=== PATIENT | female | born 1945 | race Caucasian/White ===

== ENCOUNTER 2019-07-01 08:40 | Observation (INO) | payer MEDICARE, OTHER ==
[~2019-07-01] VITALS: Ht 172 cm; Wt 72.5 kg
[2019-07-01 09:00] LABS: HEMATOCRIT 41 % (35-52); MEAN CORPUSCULAR HEMOGLOBIN 30 PG (25-34); MEAN CORPUSCULAR HGB CONC 32 G/DL (32-36); MEAN CORPUSCULAR VOLUME 95 FL (80-99); MEAN PLATELET VOLUME 13.2 FL (7.4-10.4); PLATELET COUNT 197 10^3/uL (130-400); RED CELL DISTRIBUTION WIDTH 15.3 % (10.0-14.5); WHITE BLOOD COUNT 27.9 10^3/uL (4.3-11.0)
[2019-07-01] MEDS ORDERED: fentaNYL INJECTION 100 MCG/2 ML AMP IVP ONE (09:00)
--- OUTSIDE RECORDS SUMMARY | 2019-07-01 09:05 | XMS REPORT | Continuity of Care Document ---
Author Organization Unknown Address Unknown Phone Unavailable Allergies Active Description Code Type Severity Reaction Onset Reported/Identified Relationship to Patient Clinical Status Yes Sulfa (Sulfonamide Antibiotics) [id number] Drug Allergy Mild HIVES, SWELLING 06/25/2006 Medications There is no data. Problems There is no data. Procedures There is no data. Results There is no data. Encounters ACCT No. Visit Date/Time Discharge Status Pt. Type Provider Facility Loc./Unit Complaint [id number] 06/26/2019 08:15:00 020 23:59:59 CLS Outpatient JOSE REBOLLEDO MD [facility] ONC [id number] 07/03/2019 12:30:00 P EN Preadmit JOSE REBOLLEDO MD [facility] RAD LUNG CANCER [id number] 07/01/2019 08:46:[address] Emergency HUMBERTO GARCIA MD [facility] ER ABD PAIN
--- NOTE | 2019-07-01 09:21 | ED Abdominal Pain ---
General Chief Complaint: General Problems/Pain Stated Complaint: ABD PAIN Nursing Triage Note: PT TO ROOM 5 PER W/C PT CO OF VERY LOWER L ABD/HIP PAIN. PT RATES 01/23. PT HAS NEWLY DX CA STATES ALL OVER. NEW PAIN STARTED SUNDAY. PT STATES TAKES HYDROCODONE FOR PAIN Sepsis Screen: No Definite Risk Source of Information: Patient Exam Limitations: No Limitations History of Present Illness Date Seen by Provider: Jul 01, 2019 Time Seen by Provider: 08:57 Initial Comments Patient presents to ER by private conveyance with her daughter and chief wyatt reyes that she is having for 5 days progressively worsening left hip pain. She said they went to [place] yesterday and she had use. Patient is not able to walk on it. 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 She does not report yet. She does not have a primary source yet. She's had her right hip replaced the fracture in the past. Her pain is in her left lower quadrant abdomen/hip. She has had partial colectomy for diverticulitis historically. Patient wishes to be allow natural , DO NOT RESUSCITATE. Allergies and Home Medications Allergies Coded Allergies: Sulfa (Sulfonamide Antibiotics) (Unverified Allergy, Mild, HIVES, SWELLING AND ITCHING, 06/25/06) Patient Home Medication List Home Medication List Reviewed: Yes Review of Systems Review of Systems Constitutional: No chills EENTM: No Blurred Vision, No Double Vision Respiratory: Denies Cough, Denies Shortness of Air Cardiovascular: Denies Lightheadedness Gastrointestinal: Denies Constipated, Denies Diarrhea, Denies Nausea, Denies Vomiting Genitourinary: Denies Burning, Denies Discharge, Denies Drainage Musculoskeletal: see HPI; No back pain; joint pain All Other Systems Reviewed Negative Unless Noted: Yes Past Epvwjjr-Ouxuku-Txgmyj Hx Patient Social History Alcohol Use: Denies Use Recreational Drug Use: No Smoking Status: Current Everyday Smoker Type Used: Cigarettes Recent Foreign Travel: No Contact w/Someone Who Travel: No Recent Infectious Disease Expo: No Recent Hopitalizations: No Physical Abuse: No Sexual Abuse: No Seasonal Allergies Seasonal Allergies: No Past Medical History Surgeries: Yes (colon resection) Abdominal, Appendectomy, Hysterectomy, Orthopedic COPD Cardiac: No Neurological: No Genitourinary: No Gastrointestinal: Yes Diverticulosis Musculoskeletal: Yes Arthritis, Chronic Back Pain Endocrine: Yes Diabetes, Non-Insulin dep Cancer: Yes (STATES ALL OVER) Integumentary: No Blood Disorders: No Physical Exam Vital Signs Vital Signs - First Documented 07/01/19 08:40 Temp 36.7 Pulse 71 Resp 18 B/P (MAP) 164/101 (122) Pulse Ox 96 Capillary Refill : Less Than 3 Seconds Height/Weight/BMI Height: '" Weight: lbs. oz. kg; 24.00 BMI Method: General Appearance: WD/WN, moderate distress HEENT: PERRL/EOMI, pharynx normal Neck: full range of motion, supple, normal inspection Respiratory: lungs clear, normal breath sounds, no respiratory distress, no accessory muscle use Cardiovascular: normal peripheral pulses, regular rate, rhythm Peripheral Pulses: 2+ Radial Pulses (R), 2+ Radial Pulses (L) Gastrointestinal: normal bowel sounds, non tender, soft, no organomegaly Extremities: normal inspection, normal capillary refill, other (tenderness to touch over the left anterior hip inguinal line. No deformity. Mildly tender over left lateral hip.) Neurologic/Psychiatric: alert, normal mood/affect, oriented x 3 Skin: normal color, warm/dry Progress/Results/Core Measures Results/Orders Lab Results Laboratory Tests Test 07/01/19 08:52 07/01/19 09:44 Range/Units White Blood Count 27.9 H 4.3-11.0 10^3/uL Red Blood Count 4.34 L 4.35-5.85 10^6/uL Hemoglobin 13.0 11.5-16.0 G/DL Hematocrit 41 35-52 % Mean Corpuscular Volume 95 80-99 FL Mean Corpuscular Hemoglobin 30 25-34 PG Mean Corpuscular Hemoglobin Concent 32 32-36 G/DL Red Cell Distribution Width 15.3 H 10.0-14.5 % Platelet Count 197 130-400 10^3/uL Mean Platelet Volume 13.2 H 7.4-10.4 FL Neutrophils (%) (Auto) 42-75 % Lymphocytes (%) (Auto) 12-44 % Monocytes (%) (Auto) 0-12 % Eosinophils (%) (Auto) 0-10 % Basophils (%) (Auto) 0-10 % Neutrophils # (Auto) 1.8-7.8 X 10^3 Lymphocytes # (Auto) 1.0-4.0 X 10^3 Monocytes # (Auto) 0.0-1.0 X 10^3 Eosinophils # (Auto) 0.0-0.3 10^3/uL Basophils # (Auto) 0.0-0.1 10^3/uL Neutrophils % (Manual) 65 % Lymphocytes % (Manual) 7 % Monocytes % (Manual) 7 % Eosinophils % (Manual) 21 % Polychromasia SLIGHT Anisocytosis SLIGHT Macrocytosis SLIGHT Sodium Level 142 135-145 MMOL/L Potassium Level 3.2 L 3.6-5.0 MMOL/L Chloride Level 105 98-107 MMOL/L Carbon Dioxide Level 26 21-32 MMOL/L Anion Gap 11 5-14 MMOL/L Blood Urea Nitrogen 7 7-18 MG/DL Creatinine 0.73 0.60-1.30 MG/DL Estimat Glomerular Filtration Rate > 60 BUN/Creatinine Ratio 10 Glucose Level 106 H 70-105 MG/DL Calcium Level 8.2 L 8.5-10.1 MG/DL Corrected Calcium 8.8 8.5-10.1 MG/DL Total Bilirubin 0.4 0.1-1.0 MG/DL Aspartate Amino Transf (AST/SGOT) 14 5-34 U/L Alanine Aminotransferase (ALT/SGPT) 8 0-55 U/L Alkaline Phosphatase 75 40-136 U/L C-Reactive Protein High Sensitivity 4.86 H 0.00-0.50 MG/DL Total Protein 5.9 L 6.4-8.2 GM/DL Albumin 3.3 3.2-4.5 GM/DL Lipase < 4 L 8-78 U/L Urine Color YELLOW Urine Clarity CLEAR Urine pH 6.0 5-9 Urine Specific [place] 1.015 L 1.016-1.022 Urine Protein NEGATIVE NEGATIVE Urine Glucose (UA) NEGATIVE NEGATIVE Urine Ketones NEGATIVE NEGATIVE Urine Nitrite NEGATIVE NEGATIVE Urine Bilirubin NEGATIVE NEGATIVE Urine Urobilinogen 1.0 < = 1.0 MG/DL Urine Leukocyte Esterase NEGATIVE NEGATIVE Urine RBC (Auto) TRACE-I NEGATIVE Urine RBC RARE /HPF Urine WBC 0-2 /HPF Urine Squamous Epithelial Cells 0-2 /HPF Urine Crystals NONE /LPF Urine Bacteria TRACE /HPF Urine Casts NONE /LPF Urine Mucus NEGATIVE /LPF Urine Culture Indicated NO My Orders Orders - HUMBERTO GARCIA Ua Culture If Indicated (07/01/19 08:51) Ed Iv/Invasive Line Start (07/01/19 08:51) Cbc With Automated Diff (07/01/19 08:51) Comprehensive Metabolic Panel (07/01/19 08:51) Hs C Reactive Protein (07/01/19 08:51) Lipase (07/01/19 08:51) Fentanyl Injection (Sublimaze Injection (07/01/19 09:00) Manual Differential (07/01/19 08:52) Chest 1 View, Ap/Pa Only (07/01/19 09:11) Pelvis With Left Hip 2-3 Views (07/01/19 09:11) Catheter(Urinary) Insert & Ass 03,15 (07/01/19 09:31) Ct Abdomen/Pelvis W (07/01/19 09:42) Ed Iv/Invasive Line Start (07/01/19 09:45) Ns Iv 1000 Ml (Sodium Chloride 0.9%) (07/01/19 09:45) Iohexol Injection (Omnipaque 350 Mg/Ml 1 (07/01/19 10:30) Received Contrast (Hold Metformin- Contr (07/01/19 10:30) Ns (Ivpb) (Sodium Chloride 0.9% Ivpb Bag (07/01/19 10:30) Hydrocodone/Apap 5/325 Tablet (Lortab 5 (07/01/19 11:15) Medications Given in ED Current Medications Medications Dose Ordered Sig/Cosme Route Start Time Stop Time Status Last Admin Dose Admin Acetaminophen/ Hydrocodone Bitart 2 tab ONCE ONCE PO 07/01/19 11:15 07/01/19 11:16 DC 07/01/19 11:24 2 TAB Fentanyl Citrate 75 mcg ONCE ONCE IVP 07/01/19 09:00 07/01/19 09:01 DC 07/01/19 08:59 75 MCG Iohexol 85 ml ONCE ONCE IV 07/01/19 10:30 07/01/19 10:31 DC 07/01/19 10:19 85 ML Sodium Chloride 100 ml ONCE ONCE IV 07/01/19 10:30 07/01/19 10:31 DC 07/01/19 10:19 80 ML Vital Signs/I&O 07/01/19 08:40 Temp 36.7 Pulse 71 Resp 18 B/P (MAP) 164/101 (122) Pulse Ox 96 Blood Pressure Mean: 122 Progress Progress Note #1: Time: 09:45 Progress Note Discussed our concerns with the radiologist about a potential fracture in the left hip. Radiology felt that the shadows likely represented an overlapping osteophytes more likely than hip fracture. Because the patient's having pain in that area however we are going to obtain a CT of the abdomen pelvis with IV contrast to look for alternative diagnoses and get a closer look at the hip. Progress Note #2: Time: 11:04 Progress Note Elevated white count and mass in the left lower lung but the patient denies having any more effective cough than usual as a smoker. She's had no fevers or chills. She has aseptic vital signs now. Urine and the rest the labs are okay. Early postobstructive pneumonia? She says her pain started to come back in the fentanyl was wearing off so were going to give her Welcome 5 mg 2. She agrees to staying in the hospital for some physical therapy and pain management. Diagnostic Imaging Diagonstic Imaging: Xray Plain Films/CT/US/NM/MRI: chest Comments [facility]. [place], [place] NAME: VALENTIN DUNLAP [facility] REC#: [id number] PT STATUS: REG ER : 1945 PHYSICIAN: HUMBERTO GARCIA MD ADMIT DATE: 07/01/19/ER Signed Date of Exam:07/01/19 CHEST 1 VIEW, AP/PA ONLY INDICATION: Left hip fracture. TECHNIQUE: Frontal chest obtained at 09:16 a.m. FINDINGS: Heart is borderline enlarged. There is left perihilar and basilar infiltrate. We do not have previous study for comparison. The right lung is clear. There is no pneumothorax. IMPRESSION: There is cardiomegaly. There is left perihilar and basilar infiltrate. Follow-up is recommended. Dictated by: Dictated on workstation # [id number] Dict: 07/01/19925 Trans: 07/01/19931 AS6 [id number] Interpreted by: FILOMENA LAU MD Electronically signed by: FILOMENA LAU MD 07/01/19931 Reviewed: Reviewed by Me Diagonstic Imaging: Xray Plain Films/CT/US/NM/MRI: pelvis, hip (l) Comments NAME: VALENTIN DUNLAP [facility] REC#: [id number] PT STATUS: REG ER : 1945 PHYSICIAN: HUMBERTO GARCIA MD ADMIT DATE: 07/01/19/ER Draft Date of Exam:07/01/19 PELVIS WITH LEFT HIP 2-3 VIEWS HISTORY: Left hip pain. COMPARISON: None. TECHNIQUE: Frontal view the pelvis. Frontal and lateral views of the left hip. FINDINGS: There are severe degenerative changes in the left hip with large acetabular marginal osteophytes and collar osteophytes of the femoral head. There is a right hip arthroplasty with no hardware complication seen. Fusion hardware is noted in the lumbar spine. Surgical clips are noted in the pelvis. No acute fracture is seen. IMPRESSION: Severe degenerative changes in the left hip joint. 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 He cannot see a definite fracture of the left hip however there is some bone edema could indicate small occult fracture in for still concerned about it and we should consider getting an MRI of the left hip. No other acute findings in the abdomen or pelvis. Reviewed: Reviewed by Me, Discussed w/Radiologist ([place]) Departure Communication (Admissions) Time/Spoke to Admitting Phy: 11:06 He agrees to observe the patient for intractable pain and get the MRI of her left hip today. He would like orthopedics to consult and reviewed imaging and give their opinion about possible occult fracture or not. No antibiotics at this time. Blood cultures. Time/Spoke to Consulting Phy: 11:15 Discussed the case with Drs. Mota and he agrees to consult on the case and review imaging. Impression Primary Impression: Left hip pain Additional Impressions: Intractable pain Leukocytosis Qualified Codes: D72.829 - Elevated white blood cell count, unspecified Disposition: ADMITTED INPATIENT Condition: Stable Admissions Decision to Admit Reason: Admit from ER (General) Decision to Admit/Date: Jul 01, 2019 Time/Decision to Admit Time: 11:00 Departure-Patient Inst. Referrals: SAGE VICTORIA MD (PCP/Family) Primary Care Physician Copy Copies To 1: SAGE VICTORIA MD; JOSE REBOLLEDO MD, TITUS J Jul 01, 2019 09:21
[2019-07-01 09:29] LABS: ALANINE AMINOTRANSFERASE 8 U/L (0-55); ALBUMIN 3.3 GM/DL (3.2-4.5); ALKALINE PHOSPHATASE 75 U/L (40-136); BILIRUBIN,TOTAL 0.4 MG/DL (0.1-1.0); BUN/CREATININE RATIO 10; CALCIUM 8.2 MG/DL (8.5-10.1); CARBON DIOXIDE 26 MMOL/L (21-32); CHLORIDE 105 MMOL/L (98-107); CREATININE SERUM 0.73 MG/DL (0.60-1.30); GFR ESTIMATED > 60; GLUCOSE 106 MG/DL (70-105); LIPASE < 4 U/L (8-78); POTASSIUM 3.2 MMOL/L (3.6-5.0); SODIUM 142 MMOL/L (135-145); TOTAL PROTEIN 5.9 GM/DL (6.4-8.2)
--- NOTE | 2019-07-01 09:31 | Diagnostic Imaging Report ---
INDICATION: Left hip fracture. TECHNIQUE: Frontal chest obtained at 09:16 a.m. FINDINGS: Heart is borderline enlarged. There is left perihilar and basilar infiltrate. We do not have previous study for comparison. The right lung is clear. There is no pneumothorax. IMPRESSION: There is cardiomegaly. There is left perihilar and basilar infiltrate. Follow-up is recommended. Dictated by: Dictated on workstation # [id number]
--- NOTE | 2019-07-01 09:32 | Diagnostic Imaging Report ---
HISTORY: Left hip pain. COMPARISON: None. TECHNIQUE: Frontal view the pelvis. Frontal and lateral views of the left hip. FINDINGS: There are severe degenerative changes in the left hip with large acetabular marginal osteophytes and collar osteophytes of the femoral head. There is a right hip arthroplasty with no hardware complication seen. Fusion hardware is noted in the lumbar spine. Surgical clips are noted in the pelvis. No acute fracture is seen. IMPRESSION: Severe degenerative changes in the left hip joint. Dictated by: Dictated on workstation # [id number]
[2019-07-01] MEDS ORDERED: NS IV 1000 ML 1,000 ML IV SCH (09:45)
[2019-07-01 09:50] LABS: BILIRUBIN,URINE NEGATIVE (NEGATIVE); CLARITY,URINE CLEAR; COLOR,URINE YELLOW; GLUCOSE, URINE (UA) NEGATIVE (NEGATIVE); KETONES,URINE NEGATIVE (NEGATIVE); LEUKOCYTE ESTERASE ,URINE NEGATIVE (NEGATIVE); NITRITE,URINE NEGATIVE (NEGATIVE); PROTEIN,URINE NEGATIVE (NEGATIVE)
[2019-07-01 10:11] LABS: BACTERIA,URINE TRACE /HPF; RBC,URINE RARE /HPF; SQUAMOUS EPITHELIAL CELL,UR 0-2 /HPF; WBC,URINE 0-2 /HPF
[2019-07-01 10:16] LABS: EOSINOPHILS % (MANUAL) 21 %; LYMPHOCYTES % (MANUAL) 7 %; MONOCYTES % (MANUAL) 7 %; NEUTROPHILS % (MANUAL) 65 %
[2019-07-01 10:18] LABS: ANISOCYTOSIS SLIGHT; POLYCHROMASIA SLIGHT
[2019-07-01] MEDS ORDERED: NS 100 ML (IVPB) BAG IV ONE (10:30)
[2019-07-01] MEDS ORDERED: HOLD METFORMIN - RECEIVED CONTRAST 20 ML VIAL IV SCH (10:30)
[2019-07-01] MEDS ORDERED: IOHEXOL 350 MG/ML 100 ML (OMNIPAQUE 350) VIAL IV ONE (10:30)
--- NOTE | 2019-07-01 11:00 | Diagnostic Imaging Report ---
PROCEDURE: CT abdomen and pelvis with contrast. TECHNIQUE: Multiple contiguous axial images were obtained through the abdomen and pelvis after administration of intravenous contrast. Auto Exposure Controls were utilized during the CT exam to meet ALARA standards for radiation dose reduction. INDICATION: Lower abdomen and left hip pain. COMPARISON: There are no previous CT abdomen/pelvis examinations available for comparison. By history, the patient has a recent diagnosis of carcinoma. FINDINGS: The images of the liver show multiple low density areas throughout the liver. The largest of these is in the dome of the right lobe of the liver and measures 3.9 cm. These low density lesion should be considered neoplastic until proven otherwise. There is also a sizable loculated effusion in the left lung base with a 3.8 x 5.0 cm mass-like density in the left lower lobe. This could be neoplastic as well. Unless there are previous exams available for comparison, then a CT of the chest would be recommended for further study. The right lung is generally clear. The heart size is within normal limits. The spleen, pancreas, adrenals, kidneys, gallbladder, aorta, and inferior vena cava show no sign of an acute abnormality. There is no pelvic mass or free fluid collection evident. The urinary bladder is decompressed by a Nicole catheter. By history, the appendix, uterus, and a portion of the small bowel are surgically absent. There has also been laminectomy and fusion extending from L2 through S1. Bilateral pedicle screws are also seen at each of these levels except for L5. There is a grade 2 spondylolisthesis of L5 with respect to S1 with near complete obliteration of the disc space. There is also a total hip prosthesis in place on the right. The plain film examination of the pelvis performed prior to the study noted severe degenerative disease involving the left hip. Those findings are again evident. There is no clear evidence for a fracture in this area. There is no sign of a destructive lesion to indicate metastatic disease either. However, if further study is desired, then MRI would be recommended. IMPRESSION: 1. There are multiple low density lesions within the liver. These should be considered neoplastic until proven otherwise. The mass-like density in the left lung base is also worrisome for neoplasm. Recommendations as above. 2. There is no acute abnormality in the abdomen or pelvis noted otherwise. 3. There is severe degenerative disease involving the left hip joint but there is no evidence for a fracture or for an acute bony abnormality. Recommendations as above. 4. These results were discussed with Dr. Rajeev Avalos. Dictated by: Dictated on workstation # [id number]
[2019-07-01] MEDS ORDERED: HYDROcodone/APAP 5 MG/325 MG (LORTAB) TAB PO ONE (11:15)
--- NOTE | 2019-07-01 11:45 | NUR ---
LAB HERE TO DRAW BLOOD CULTURES
--- NOTE | 2019-07-01 12:20 | NUR ---
VALENTIN DUNLAP admitted to room 411-1, with an admitting diagnosis of INTRACTABLE PAIN LEFT HIP, AND LEUKOCYTOSIS, on 07/01/19 from ED via [facility], accompanied by ED STAFF. VALENTIN DUNLAP introduced to surroundings, call light, bed controls, phone, TV, temperature control, lights, meal times, smoking policy, visitor policy, side rail policy, bathrooms and showers. Patient Rights given to patient in the handbook. VALENTIN DUNLAP verbalizes understanding that [facility] is not responsible for the loss or damage to any personal effects or valuables that are kept in the patients possession during their hospitalization. The following Patient Care Plans were discussed with the PATIENT: Discharge Planning, POSSIBLE FRACTURE, IMPAIRED MOBILITY and KNOWLEDGE DEFICIT. VALENTIN DUNLAP verbalizes understanding of Interdisciplinary Patient Education. Patient and/or family were informed about the Rapid Response Team and its purpose.
[2019-07-01 12:34] VITALS: BP 122/66
[2019-07-01] MEDS ORDERED: fentaNYL INJECTION 100 MCG/2 ML AMP IV PRN (12:45)
[2019-07-01] MEDS ORDERED: ONDANSETRON 4 MG/2 ML (SDV) Z0FRAN IV PRN (12:45)
[2019-07-01] MEDS ORDERED: CATHETER FLUSH 10 ML SYR IV PRN (12:45)
[2019-07-01] MEDS ORDERED: HYDROcodone/APAP 5 MG/325 MG (LORTAB) TAB PO PRN (12:45)
--- OUTSIDE RECORDS SUMMARY | 2019-07-01 12:57 | XMS REPORT | Continuity of Care Document ---
Author Organization Unknown Address Unknown Phone Unavailable Allergies Active Description Code Type Severity Reaction Onset Reported/Identified Relationship to Patient Clinical Status Yes Sulfa (Sulfonamide Antibiotics) [id number] 0491 Drug Allergy Mild HIVES, SWELLING 06/25/2006 Medications There is no data. Problems There is no data. Procedures There is no data. Results There is no data. Encounters ACCT No. Visit Date/Time Discharge Status Pt. Type Provider Facility Loc./Unit Complaint [id number] 06/26/2019 08:15:00 020 23:59:59 CLS Outpatient JOSE REBOLLEDO MD [facility] ONC [id number] 07/03/2019 12:30:00 P EN Preadmit JOSE REBOLLEDO MD [facility] RAD LUNG CANCER [id number] 07/01/2019 11:20:[address] Inpatient HILTON QUEVEDO, MANNY Ramos [facility] 4TH INTRACTABLE PAIN L HIP,LEUKO CYTOSIS
[2019-07-01] MEDS: POTASSIUM CHLORIDE INJ 40 MEQ in 1/2 NS IV SOLUTION 1,000 ML IV SCH (12:59)
--- NOTE | 2019-07-01 13:41 | Occupational Therapy Eval ---
OT Evaluation-General/PLF Medical Diagnosis Admission Date Jul 01, 2019 at 11:20 Medical Diagnosis: L hip pain Onset Date: Jun 30, 2019 Therapy Diagnosis Therapy Diagnosis: Decreased ADL status Precautions Precautions/Isolations: Fall Prevention, Standard Precautions Referral Physician: Noemy Khan MD Referral Reason: Activity Tolerance, Self Care, Evaluation/Treatment, Strengthening/ROM Medical History Pertinent Medical History: Arthritis, COPD, DM, Diverticulitis Additional Medical History leukocytosis, Ca (recent dx- metastasis to bone), R YANIV, partial colectomy (diverticulitis), everyday smoker, COPD, arthritis, NID DM Current History Pt states severe L hip pain yesterday. Pt states persisted through night and desired to go in to work this morning, however stated went to ER for L hip pain Reviewed History: Yes Social History Home: Single Level Current Living Status: Alone Entry Into Home: Ramp Steps Into Home: 0 ADL-Prior Level of Function SCALE: Activities may be completed with or without assistive devices. 2-Lwdiyxowqz-krgbtdt completes the activity by him/herself with no assistance from a helper. 5-Set-up or Clean-up Assistance-helper sets up or cleans up; patient completes activity. [place] assists only prior to or following the activity. 4-Supervision or Touching Assistance-helper provides verbal cues and/or touching/steadying and/or contact guard assistance as patient completes activity. Assistance may be provided throughout the activity or intermittently. 3-Partial/Moderate Assistance-helper does LESS THAN HALF the effort. [place] lifts, holds or supports trunk or limbs, but provides less than half the effort. 2-Substantial/Maximal Assistance-helper does MORE THAN HALF the effort. [place] lifts or holds trunk or limbs and provides more than half the effort. 4-Xdnvpbuya-kdniua does ALL the effort. Patient does none of the effort to complete the activity. Or, the assistance of 2 or more helpers is required for the patient to complete the activity. If activity was not attempted, code reason: 7-Patient Refused. 9-Not Applicable-not attempted and the patient did not perform the activity before the current illness, exacerbation or injury. 10-Not Attempted due to Environmental Limitations-(lack of equipment, weather restraints, etc.). 88-Not Attempted due to Medical Conditions or Safety Concerns. ADL PLOF Comments Pt states IND without use of AE. 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 Pt eating, states minimal appetite/ eats small amounts due to nausea. Pt states "had nausea," but is no longer present. Pt agreeable to OT eval/ treat, stating no current pain but "sharp/ shooting" with movement. Mental Status/Objective Patient Orientation: Person, Place, Situation, Normal For Age Attachments: IV Current Glasses/Contacts: Yes Hearing Aids: No Upper Extremity ROM WFL BUE Upper Extremity Coordination WFL BUE Upper Extremity Sensation WFL BUE Pt states tingling/ numbness BLE, denies DM dx. Upper Extremity Strength WFL BUE ADL-Treatment Eating (QC): 6 Upper Body Dressing (QC): 6 (Pt states dressed self this morning) Lower Body Dressing (QC): 6 (Pt states dressed self this morning) On/Off Footwear (QC): 6 (Pt states dressed self this morning) Other Treatments Pt provides hx: states recent Ca dx, states pain began yesterday in L hip, now only hurts (sharp/ shooting) when in stance. Pt agreeable to OOB activity. Pt completes bed mob with SBA, MMT/ ROM WFL EOB. Pt leans down to don/ doff socks (replicates, does not complete and states she completed dressing tasks with IND this morning). Pt agreeable to sit to stand, utilizes 2WW to sit to stand, states minimal pain, ambulates around bed with CGA, states 8/10 pain and returns to bed with increased time. Pt educated on OT role, pt educated on no need for OT as she is at PLOF though increased time/ pain. Pt agrees. Pt educated on PT eval later today as well. Pt agrees. Pt in bed, call light in reach, all needs met, food placed again in front of pt. Education OT Patient Education: Correct positioning, Safety issues Teaching Recipient: Patient Teaching Methods: Demonstration, Discussion Response to Teaching: Verbalize Understanding, Return Demonstration OT Light Rail Signal Technician Goals Intermediate Goals 1=Demonstrate adherence to instructed precautions during ADL tasks. 2=Patient will verbalize/demonstrate understanding of assistive devices/modifications for ADL. 3=Patient will improve strength/tolerance for activity to enable patient to perform ADL's. OT Education/Plan Problem List/Assessment Assessment: Decreased Activ Tolerance, Impaired Funct Balance Discharge Recommendations Plan/Recommendations: Continue POC Therapy Discharge Recommendati: Intermittent Supervision, Home & Family Treatment Plan/Plan of Care Treatment,Training & Education: Yes No skilled OT tx needed. Plan of Care: OTHER (eval only) Treatment Duration: Jul 01, 2019 Frequency: 1 time per week (eval only) Agreement: Yes Time/GCodes Start Time: 13:10 Stop Time: 13:30 Total Time Billed (hr/min): 20 Billed Treatment Time 1, EVL (20) KIMANI MERCADO OTR Jul 01, 2019 13:41
--- NOTE | 2019-07-01 13:44 | NUR ---
MESSAGE SENT TO DR CANELA -- DVT SCORE IS 7
[2019-07-01] MEDS: fentaNYL INJECTION 100 MCG/2 ML AMP IV PRN ×2 (13:52→20:15)
[2019-07-01 14:45] VITALS: BP 123/69
[2019-07-01] MEDS: HYDROcodone/APAP 10 MG/325 MG (LORTAB) TAB PO PRN ×2 (14:59→22:13)
--- NOTE | 2019-07-01 15:04 | Diagnostic Imaging Report ---
PROCEDURE: MRI left joint lower extremity without contrast. TECHNIQUE: Multiplanar, multisequence non contrast-enhanced MRI of the left lower extremity was accomplished. INDICATION: Severe left hip pain. COMPARISON: CT abdomen and pelvis from earlier same day. FINDINGS: There is an abnormal intramedullary lesion within the posterior aspect of the left femoral head which is T2 hyperintense and T1 hypointense, likely represents a metastatic lesion. There is a similar metastatic lesion within the right iliac wing. Right total hip arthroplasty has been performed which results in signal void and architectural distortion artifact about the right hip. Severe degenerative arthritis in the left hip is present with areas of full-thickness articular cartilage loss as well as extensive marginal osteophyte formation. A small hip effusion is likely degenerative in nature. Degenerative tearing of the acetabular labrum is also likely present. No large para-labral cyst. No free pelvic fluid. No left inguinal lymphadenopathy. IMPRESSION: 1. Abnormal intraosseous lesions involving the left femoral head and right iliac wing are highly suspicious for metastatic disease. No pathologic fracture. 2. Severe/end-stage degenerative arthritis of the left hip is present. 3. Left hip effusion is likely degenerative in nature. Dictated by: Dictated on workstation # [id number]
[2019-07-01] MEDS ORDERED: BETA15CR14 TOP (15:22)
[2019-07-01] MEDS ORDERED: GABA-490 PO (15:22)
[2019-07-01] MEDS ORDERED: CETI10TA21 PO (15:22)
[2019-07-01] MEDS ORDERED: IBUP-30 PO (15:22)
[2019-07-01] MEDS ORDERED: CALC10009 PO (15:22)
[2019-07-01] MEDS ORDERED: HYDR-4226 PO (15:22)
--- NOTE | 2019-07-01 15:23 | NUR ---
SPOKE WITH PT, WENT THRU EXT MED HISTORY AND CALLED [facility] TO COMPLETE THE MED REC ALL MEDICATIONS THAT THE PT SAYS SHE TAKES ARE LISTED ON THE EXT MED HISTORY OTC MEDS: ZYRTEWilliams EDMONDS
--- NOTE | 2019-07-01 15:40 | Physical Therapy Evaluation ---
PT Evaluation-General Medical Diagnosis Admission Date Jul 01, 2019 at 11:20 Medical Diagnosis: L hip pain Onset Date: Jun 30, 2019 Therapy Diagnosis Therapy Diagnosis: Impaired mobility Precautions Precautions/Isolations: Fall Prevention, Standard Precautions Weight Bear Status Right Lower Extremity: Right Weight Bearing/Tolerated Left Lower Extremity: Left Weight Bearing/Tolerated Referral Physician: Noemy Khan MD Reason for Referral: Evaluation/Treatment Medical History Pertinent Medical History: Arthritis, COPD, DM, Diverticulitis Additional Medical History Cancer, COPD, RHA, colectomy, diverticulitis Current History ER by family with 2nd pain to LL quadrant of abdomen Reviewed History: Yes Social History Home: Single Level Current Living Status: Alone Entry Into Home: Ramp PT Steps Into Home: 0 Prior Prior Level of Function SCALE: Activities may be completed with or without assistive devices. 8-Rkjogtcfgg-ticygrk completes the activity by him/herself with no assistance from a helper. 5-Set-up or Clean-up Assistance-helper sets up or cleans up; patient completes activity. [place] assists only prior to or following the activity. 4-Supervision or Touching Assistance-helper provides verbal cues and/or touching/steadying and/or contact guard assistance as patient completes activity. Assistance may be provided throughout the activity or intermittently. 3-Partial/Moderate Assistance-helper does LESS THAN HALF the effort. [place] lifts, holds or supports trunk or limbs, but provides less than half the effort. 2-Substantial/Maximal Assistance-helper does MORE THAN HALF the effort. [place] lifts or holds trunk or limbs and provides more than half the effort. 5-Qmlyfaiti-cetmzf does ALL the effort. Patient does none of the effort to complete the activity. Or, the assistance of 2 or more helpers is required for the patient to complete the activity. If activity was not attempted, code reason: 7-Patient Refused. 9-Not Applicable-not attempted and the patient did not perform the activity before the current illness, exacerbation or injury. 10-Not Attempted due to Environmental Limitations-(lack of equipment, weather restraints, etc.). 88-Not Attempted due to Medical Conditions or Safety Concerns. Bed Mobility: 6 Transfers (B,C,W/C): 6 Gait: 6 Stairs: 6 Indoor Mobility (Ambulation): Independent Stairs: Independent none PT Evaluation-Current Subjective Patient reports with pain 8/10 at L hip. Patient wished to be independent with all activities Pain Numeric Pain Scale: 8 Location: Left Location Body Site: Hip Pain Description: Acute Pt/Family Goals return home Objective Patient Orientation: Person, Place, Eyes Open Attachments: Nicole Catheter, IV ROM/Strength ROM Upper Extremities WNL ROM Lower Extremities right LE WNL/left LE limited due to pain with hip flexion Strength Upper Extremities WNL Strength Lower Extremities right LE WNL/left LE limited due to pain Integumentary/Posture Bowel Incontinence: No Bladder Incontinence: Nicole Cath Posture WFL Neuromuscular (Tone, Coordination, Reflexes) grossly intact Sensory Vision: Functional Hearing: Functional Hand Dominance: Right Sensation Right Upper Extremit: Intact Sensation Left Upper Extremity: Intact Sensation Right Lower Extremit: Intact Sensation Left Lower Extremity: Intact Transfers Roll Left to Right (QC): 5 Sit to Lying (QC): 4 (SBA) Lying to Sitting/Side of Bed(Q: 4 (SBA) Sit to Stand (QC): 4 (SBA) Chair/Svl-yz-Nyyss Xfer(QC): 88 Toilet Transfer: 88 Car Transfer (QC): 88 could not be completed due to pain. PT waiting for full imaging results of L hip. Gait Does the Patient Walk?: No and Walking Goal IS indicated Mode of Locomotion: Walk Anticipated Mode of Locomotion: Walk Walk 10 feet (QC): 88 Walk 50 ft with 2 Turns(QC): 88 Walk 150 ft (QC): 88 Walking 10ft/uneven surface-QC: 88 Distance: 2 side steps Gait Assistive Device: FWW Comments/Gait Description minimal to on weight bearing left LE due to pain Stairs 1 Step (curb) (QC): 88 4 Steps (QC): 88 12 Steps (QC): 88 Balance Sitting Static: Normal Sitting Dynamic: Normal Standing Static: Good Standing Dynamic: Fair Picking up an Object (QC): 88 Assessment/Needs Patient wants to complete all therapy ask of her but PT is still waiting for total official results of MRI before progressing treatment. Rehab Potential: Guarded PT Short Term Goals Short Term Goals Time Frame: Jul 08, 2019 Roll Left & Right: 5 Sit to lyin Lying to sitting on side of be: 5 Sit to stand: 5 Chair/rau-rj-cfmxd transfer: 5 Walk 10 feet: 5 Walk 50 feet with two turns: 4 Walk 150 feet: 4 PT Ammunition Components Inspector Goals Ammunition Components Inspector Goals PT Ammunition Components Inspector Goals Time Frame: Jul 18, 2019 Roll Left & Right (QC): 6 Sit to Lying (QC): 6 Lying-Sitting on Side/Bed(QC): 6 Sit to Stand (QC): 6 Chair/Wdo-iw-Yqnfq Xfer(QC): 6 Does the Patient Walk: Yes Walk 10 feet (QC): 6 Walk 50ft with 2 Turns (QC): 5 Walk 150 ft (QC): 5 PT Plan Problem List Problem List: Activity Tolerance, Functional Strength, Safety, Balance, Gait, Transfer, Bed Mobility Treatment/Plan Treatment Plan: Continue Plan of Care Treatment Plan: Bed Mobility, Concurrent Therapy, Education, Functional Activity Char[place], Functional Strength, Group Therapy, Safety, Therapeutic Exercise Treatment Duration: Jul 18, 2019 Frequency: 6 times per week Estimated Hrs Per Day: .25 hour per day Patient and/or Family Agrees t: Yes Safety Risks/Education Patient Education: Gait Training, Transfer Techniques, Disease Process, Safety Issues Teaching Recipient: Patient Teaching Methods: Demonstration, Discussion Response to Teaching: Verbalize Understanding, Return Demonstration, Reinforcement Needed Time/GCodes Time In: 1515 Time Out: 1530 Total Billed Treatment Time: 15 Total Billed Treatment 1 visit PADMAJA 15' TIP HALEY PT Jul 01, 2019 15:40
[2019-07-01] MEDS ORDERED: ACETAMINOPHEN 325 MG TABLET PO PRN (15:45)
[2019-07-01] MEDS ORDERED: polyethylene glycoL POWDER 17 GM (MIRALAX) PACK PO PRN (15:45)
[2019-07-01] MEDS ORDERED: MELATONIN 3 MG TABLET PO PRN (15:45)
[2019-07-01] MEDS ORDERED: ENOXAPARIN 40 MG/0.4 ML (LOVENOX) SYR SC SCH (15:45)
[2019-07-01 16:00] VITALS: BP 100/62
--- NOTE | 2019-07-01 17:03 | Progress Note ---
Standard Progress Note Progress Notes/Assess & Plan Date Seen by a Provider: Jul 01, 2019 Time Seen by a Provider: 17:00 Progress/Assessment & Plan patient seen and examined consult dictated MRI reveals met to left femoral head. no fractures rec symptomatic treatment with walker for ambulation CLAUDIA LONG MD Jul 01, 2019 17:03
--- NOTE | 2019-07-01 17:13 | CONSULTATION REPORT ---
DATE OF SERVICE: REASON FOR CONSULTATION: Left hip pain. HISTORY OF PRESENT ILLNESS: The patient is a 73-year-old female with complaints of left groin pain. She was recently diagnosed with cancer, which is metastatic. The primary is unknown suspected to be liver or lung. She has multiple metastases noted. She presents today with complaints of left groin pain, which is present only when ambulating. She has had four lumbar procedures, but reports that she is not having paresthesias. She reports pain only in her groin and this occurs only when she ambulates. She reports no recent trauma or falls. An MRI, CT scan and plain films were obtained. These were noted to have marked degenerative changes, but no acute fracture. She is noted to have a small posterior femoral head lesion on the left as well as right iliac wing lesion. These are not consistent with an impending fracture. On exam, the patient is able to perform a straight leg raise without difficulty. She has no pain with internal or external rotation of the left hip passively; however, with attempts at weightbearing, she complains of pain in her groin. She has negative straight leg raise. No skin lesions are noted. She is neurovascularly intact distally. IMPRESSION: Metastatic cancer with involvement of the left femoral head and no evidence of acute fracture. RECOMMENDATIONS: Weightbearing as tolerated with a walker with pain management. Continue with cancer workup as an outpatient. We will plan on seeing the patient as needed. Thank you for the consultation. Job ID: [id number] DocumentID: [id number] Dictated Date: 07/01/2019 17:01:32 Binding Bench Worker Date: 07/01/2019 17:12:39 Dictated By: CLAUDIA LONG MD
[2019-07-01 20:00] VITALS: BP 116/71
--- NOTE | 2019-07-01 20:02 | NUR ---
PT'S DAUGHTER CALLED THIS RN AT THIS TIME AND PROVIDED CORRECT PASSWORD. DAUGHTER WANTED TO KNOW PT'S STATUS AND HOW SHE WAS FEELING. THIS RN GAVE HER A BRIEF UPDATE AND ANSWERED ALL OF HER QUESTIONS. SHE INFORMED THIS RN TO LET THE PHYSICIAN KNOW THAT IF HER MOTHER WAS GOING TO START CHEMO SOON, THAT DR. VENEGAS RECOMMENDED B12 INJECTION AND FOLIC ACID. SHE CAUTIONED THAT SHE WANTED TO KNOW SOON BECAUSE THE MEDICINE TAKES ABOUT A WEEK TO GET THERE. THIS RN REASSURED THAT THE INFORMATION WOULD GET PASSED ALONG TO THE PHYSICIAN.
[2019-07-02 00:30] VITALS: BP 108/67
[2019-07-02] MEDS: fentaNYL INJECTION 100 MCG/2 ML AMP IV PRN ×3 (00:34→10:18)
[2019-07-02] MEDS: POTASSIUM CHLORIDE INJ 40 MEQ in 1/2 NS IV SOLUTION 1,000 ML IV SCH (03:01)
[2019-07-02 03:40] VITALS: BP 114/72
[2019-07-02 05:03] LABS: BASOPHILS # (AUTO) 0.1 10^3/uL (0.0-0.1); BASOPHILS % (AUTO) 0 % (0-10); EOSINOPHILS # (AUTO) 5.7 10^3/uL (0.0-0.3); EOSINOPHILS % (AUTO) 22 % (0-10); HEMATOCRIT 37 % (35-52); HEMOGLOBIN 11.6 G/DL (11.5-16.0); LYMPHOCYTES # (AUTO) 3.4 X 10^3 (1.0-4.0); LYMPHOCYTES % (AUTO) 13 % (12-44); MEAN CORPUSCULAR HEMOGLOBIN 30 PG (25-34); MEAN CORPUSCULAR HGB CONC 32 G/DL (32-36); MEAN CORPUSCULAR VOLUME 96 FL (80-99); MEAN PLATELET VOLUME 13.7 FL (7.4-10.4); MONOCYTES # (AUTO) 1.8 X 10^3 (0.0-1.0); MONOCYTES % (AUTO) 7 % (0-12); NEUTROPHILS # (AUTO) 15.3 X 10^3 (1.8-7.8); NEUTROPHILS % (AUTO) 58 % (42-75); PLATELET COUNT 179 10^3/uL (130-400); RED CELL DISTRIBUTION WIDTH 15.3 % (10.0-14.5); WHITE BLOOD COUNT 26.3 10^3/uL (4.3-11.0)
[2019-07-02 05:17] LABS: BUN/CREATININE RATIO 8; CALCIUM 7.8 MG/DL (8.5-10.1); CARBON DIOXIDE 24 MMOL/L (21-32); CHLORIDE 107 MMOL/L (98-107); CREATININE SERUM 0.66 MG/DL (0.60-1.30); GFR ESTIMATED > 60; GLUCOSE 78 MG/DL (70-105); POTASSIUM 4.1 MMOL/L (3.6-5.0); SMEAR SCAN COMMENT YES; SODIUM 141 MMOL/L (135-145)
[2019-07-02 08:00] VITALS: BP 149/72
[2019-07-02] MEDS: HYDROcodone/APAP 10 MG/325 MG (LORTAB) TAB PO PRN (10:15)
[2019-07-02] MEDS ORDERED: OXYC10TA7 PO (10:31)
[2019-07-02] MEDS ORDERED: ACET325C7 PO (10:31)
[2019-07-02] MEDS ORDERED: OXC10TCR PO (10:31)
--- NOTE | 2019-07-02 11:12 | Discharge Summary ---
Discharge Summary Hospital Course Was the Problem List Reviewed?: Yes Problems/Dx: (1) Left hip pain Status: Acute Hospital Course Date of Admission: Jul 01, 2019 at 11:20 Admission Diagnosis : Left hip pain Family Physician/Provider: Sarath Briscoe MD Date of Discharge: 07/02/19 Discharge Diagnosis: Bone metastasis Hospital Course: Gabriela Lock is a 73-year-old female who presented with left hip pain and was admitted with pain of metastatic disease. She was recently diagnosed with lung cancer and is still undergoing evaluation prior to initiation of therapy. She is scheduled undergone MRI of her brain tomorrow. Her pain was well-controlled and she was able to ambulate. She was given prescriptions for pain medications. Her case is discussed with Dr. Rebolledo and he will get in touch with Radiation Oncology about possible radiation to her left hip. Her course was complicated by a leukocytosis. Her infectious workup was negative. She was discharged home in fair condition. Labs and Pending Lab Test: Laboratory Tests 07/02/19 04:10: White Blood Count 26.3H, Red Blood Count 3.85L, Hemoglobin 11.6, Hematocrit 37, Mean Corpuscular Volume 96, Mean Corpuscular Hemoglobin 30, Mean Corpuscular Hemoglobin Concent 32, Red Cell Distribution Width 15.3H, Platelet Count 179, Mean Platelet Volume 13.7H, Neutrophils (%) (Auto) 58, Lymphocytes (%) (Auto) 13, Monocytes (%) (Auto) 7, Eosinophils (%) (Auto) 22H, Basophils (%) (Auto) 0, Neutrophils # (Auto) 15.3H, Lymphocytes # (Auto) 3.4, Monocytes # (Auto) 1.8H, Eosinophils # (Auto) 5.7H, Basophils # (Auto) 0.1, Sodium Level 141, Potassium Level 4.1, Chloride Level 107, Carbon Dioxide Level 24, Anion Gap 10, Blood Urea Nitrogen 5L, Creatinine 0.66, Estimat Glomerular Filtration Rate > 60, BUN/Creatinine Ratio 8, Glucose Level 78, Calcium Level 7.8L, Smear Scan YES Home Meds Active Tylenol (Acetaminophen) 325 Mg Capsule 975 Mg PO TID 7 Days Oxycodone HCl 10 Mg Tablet 10 Mg PO Q4H PRN 7 Days Oxycontin (Oxycodone HCl) 10 Mg Tab.er.12h 10 Mg PO BID PRN 7 Days Reported Tums Ultra (Calcium Carbonate) 400 Mg Tab.chew 800 Mg PO PRN PRN Advil (Ibuprofen) 200 Mg Tablet 400 Mg PO Q6H PRN Zyrtec (Cetirizine HCl) 10 Mg Tablet 10 Mg PO DAILY PRN Hydrocodone/Acetaminophen 5 MG/325 MG TAB (Hydrocodone/Acetaminophen) 1 Each Tablet 1 Tab PO Q6H PRN MDD 10 TABS Betamethasone Dp Aug 0.05% Crm (Betamethasone/Propylene Glyc) 15 Gm Cream..g. 1 Applic TOP DAILY PRN APPLY TO HANDS AND FEET Gabapentin 400 Mg Capsule 400 Mg PO TID Assessment/Pt Instructions Take medications as prescribed. Follow up with Dr. Rebolledo. Discharge Planning: <30 minutes discharge planning Discharge Instructions Discharge Diet: No Restrictions Activity as Tolerated: Yes Discharge Physical Examination Vital Signs Vital Signs Date Time Temp Pulse Resp B/P (MAP) Pulse Ox O2 Delivery O2 Flow Rate FiO2 07/02/19 08:00 37.4 72 18 149/72 (97) 92 Room Air General Appearance: No Apparent Distress, Chronically ill Respiratory: Lungs Clear, Normal Breath Sounds, No Respiratory Distress Cardiovascular: Regular Rate, Rhythm, No Edema, No Murmur Gastrointestinal: Normal Bowel Sounds, Non Tender, Soft Extremity: Normal Inspection, Non Tender, No Pedal Edema Skin: Normal Color, Warm/Dry Neurologic/Psychiatric: Alert, Oriented x3, No Motor/Sensory Deficits, Normal Mood/Affect Allergies: Coded Allergies: Sulfa (Sulfonamide Antibiotics) (Unverified Allergy, Mild, HIVES, SWELLING AND ITCHING, 06/25/06) Copy Copies To 1: JOSE REBOLLEDO MD Discharge Summary Date of Admission Jul 01, 2019 at 11:20 Date of Discharge Discharge Date: Jul 02, 2019 Discharge Time: 11:10 Admission Diagnosis Left hip pain Discharge Diagnosis (1) Bone metastases Status: Acute (2) Pain of metastatic malignancy Status: Acute Clinical Quality Measures DVT/VTE Risk/Contraindication: Risk Factor Score Per Nursin RFS Level Per Nursing on Admit: 4+=Very High MANNY CANELA MD Jul 02, 2019 11:12
[2019-07-02 14:38] VITALS: BP 149/72
--- NOTE | 2019-07-02 14:50 | NUR ---
Met with pt and D-I-law who is employed here. Discussed continued care needs as pt lives alone.She has very supportive family but has been a for 11 years is very independent. she was recently diagnosed with lung cancer and now has diagnosis of bone metastases. She is requesting a front wheel walker for balance and fall prevention. Dr. Khan did order a front wheel walker and pt chose [facility] as her DME. 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
== END 2019-07-02 14:41 | disposition home or self-care (01) ==
LOC: EDUNIT# 08:41 → ER 08:46 → 4TH 11:20
PROVIDERS: ADMIT Internal Medicine; ATTEND Internal Medicine
DX: G89.3 Neoplasm related pain (acute) (chronic) (principal); C79.51 Secondary malignant neoplasm of bone; C80.1 Malignant (primary) neoplasm, unspecified; C78.7 Secondary malignant neoplasm of liver and intrahepatic bile duct; D72.829 Elevated white blood cell count, unspecified; J90 Pleural effusion, not elsewhere classified; F17.210 Nicotine dependence, cigarettes, uncomplicated; Z66 Do not resuscitate; J44.9 Chronic obstructive pulmonary disease, unspecified; M19.91 Primary osteoarthritis, unspecified site; E11.9 Type 2 diabetes mellitus without complications; M16.12 Unilateral primary osteoarthritis, left hip; Z96.641 Presence of right artificial hip joint; Z79.899 Other long term (current) drug therapy; Z88.2 Allergy status to sulfonamides
CPT/HCPCS: 36415; 51702; 71045; 73721; 74177; 80048; 80053; 81000; 83690; 85007; 85025; 85027; 86141; 87040; G0378

== ENCOUNTER → 2019-07-03 | Outpatient (CLI) | payer MEDICARE, OTHER ==
[~2019-07-03] MED LIST: ACET325C7 PO; ALLO100T PO; BETA15CR14 TOP; CALC10009 PO; CETI10TA21 PO; GABA-490 PO; GADOBUTROL 7.5 MMOL/7.5 ML (GADAVIST) VIAL IV ONE; HYDR-4226 PO; IBUP-30 PO; OXC10TCR PO; OXYC10TA7 PO; OXYC30TA77 PO; PRED10TA22 PO
--- NOTE | 2019-07-03 13:14 | Diagnostic Imaging Report ---
PROCEDURE: MR imaging of the brain with and without contrast. TECHNIQUE: Multiplanar, multisequence MR imaging of the brain was performed with and without contrast. INDICATION: History of liver and lung cancer. Evaluate for intracranial metastatic disease. COMPARISON: None. Findings: No acute ischemia, mass, or hemorrhage. No abnormal enhancement is seen. T2/FLAIR hyperintense signal is seen in the periventricular and subcortical white matter and mid sanjay. The ventricles and cortical sulci are mildly prominent. The basilar cisterns are symmetric and unremarkable. The sellar and suprasellar regions have a normal appearance. The brainstem and posterior fossa are unremarkable. The paranasal sinuses and mastoid air cells demonstrate normal signal characteristics. The globes and orbits are symmetric and unremarkable. The scalp and calvarium have a normal appearance. IMPRESSION: 1. No acute ischemia, mass, or hemorrhage. No abnormal enhancement to suggest metastatic disease. 2. 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 3. Mild generalized parenchymal volume loss. Dictated by: Dictated on workstation # [id number]
== END ==
LOC: RAD 12:08
PROVIDERS: ATTEND Internal Medicine Hematology & Oncology
DX: C34.90 Malignant neoplasm of unspecified part of unspecified bronchus or lung (principal); C22.9 Malignant neoplasm of liver, not specified as primary or secondary
CPT/HCPCS: 70553

== ENCOUNTER 2019-07-05 14:21 | Observation (INO) | payer MEDICARE, OTHER ==
[~2019-07-05] VITALS: Ht 170.2 cm; Wt 74.2 kg
[~2019-07-05 14:21] MED LIST changes: -ALLO100T PO; -GADOBUTROL 7.5 MMOL/7.5 ML (GADAVIST) VIAL IV ONE; -OXYC30TA77 PO; -PRED10TA22 PO
--- OUTSIDE RECORDS SUMMARY | 2019-07-05 14:27 | XMS REPORT | Continuity of Care Document ---
Author Organization Unknown Address Unknown Phone Unavailable Allergies Active Description Code Type Severity Reaction Onset Reported/Identified Relationship to Patient Clinical Status Yes Sulfa (Sulfonamide Antibiotics) [id number] Drug Allergy Mild HIVES, SWELLING 06/25/2006 Medications There is no data. 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 1 MALIGNANT (PRIMARY) NEOPLASM, UNSPECIFIE 07/02/2019 MANNY CANELA MD, Ot D72.829 ELEVATED WHITE BLOOD CELL COUNT, UNSPECI 07/02/2019 MANNY CANELA MD Ot E11. 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 9 CHRONIC OBSTRUCTIVE PULMONARY DISEASE, U 07/02/2019 MANNY CANELA MD Ot J90 PLEURAL EFFUSION, NOT ELSEWHERE CLASSIFI 07/02/2019 MANNY CANELA MD Ot M16. 12 UNILATERAL PRIMARY OSTEOARTHRITIS, LEFT 07/02/2019 MANNY CANELA MD Ot M19. 91 PRIMARY OSTEOARTHRITIS, UNSPECIFIED SITE 07/02/2019 MANNY CANELA MD Ot Z66 DO NOT RESUSCITATE 07/02/2019 MANNY CANELA MD, Ot Z79.899 OTHER INFORMATICS EDUCATOR (CURRENT) DRUG THERAPY 07/02/2019 MANNY CANELA MD, Ot Z88. 2 ALLERGY STATUS TO SULFONAMIDES STATUS 07/02/2019 MANNY CANELA MD Ot Z96.641 PRESENCE OF RIGHT ARTIFICIAL HIP JOINT Procedures There is no data. Results Test Result Range Complete blood count (CBC) with automate d white blood cell (WBC) differential - 07/01/19 08:52 Blood leukocytes automated count (number/volume) 27.9 10*3/uL 4.3-11.0 Blood erythrocytes automated count (number/volume) 4.34 10*6/uL 4.35-5.85 Venous blood hemoglobin measurement (mass/volume) 13.0 g/dL 11.5-16.0 Blood hematocrit (volume fraction) 41 % 35-52 Automated erythrocyte mean corpuscular volume 95 [ foz_us] 80-99 Automated erythrocyte mean corpuscular h emoglobin (mass per erythrocyte) 30 pg 25-34 Automated erythrocyte mean corpuscular h emoglobin concentration measurement (mass/volume) 32 g/dL 32-36 Automated erythrocyte distribution width ratio 15. 3 % 10.0- 14.5 Automated blood platelet count (count/volume) 197 10*3/uL 130-400 Automated blood platelet mean volume measurement 13.2 [foz_us] 7.4-10.4 Automated blood neutrophils/100 leukocytes TNP 42-75 Automated blood lymphocytes/100 leukocytes TNP 12-44 Blood monocytes/100 leukocytes TNP 0-12 Automated blood eosinophils/100 leukocytes TNP 0-10 Automated blood basophils/100 leukocytes TNP 0-10 Blood neutrophils automated count (number/volume) TNP 1.8- 7.8 Blood lymphocytes automated count (number/volume) TNP 1.0- 4.0 Blood monocytes automated count (number/volume) TN P 0.0-1.0 Automated eosinophil count TNP 0.0 -0.3 Automated blood basophil count (count/volume) TNP 0.0-0.1 Comprehensive metabolic panel - 07/01/19 08:52 Serum or plasma sodium measurement (moles/volume) 142 mmol/L 135-145 Serum or plasma potassium measurement (moles/volume) 3.2 mmol/L 3.6-5.0 Serum or plasma chloride measurement (moles/volume) 105 mmol/L 98-107 Carbon dioxide 26 mmol/L 21-32 Serum or plasma anion gap determination (moles/volume) 11 mmol/L 5-14 Serum or plasma urea nitrogen measurement (mass/volume ) 7 mg/dL 7-18 Serum or plasma creatinine measurement (mass/volume) 0.73 mg/dL 0.60-1.30 Serum or plasma urea nitrogen/creatinine mass ratio 10 NRG Serum or plasma creatinine measurement w ith calculation of estimated glomerular filtration rate > NRG Serum or plasma glucose measurement (mass/volume) 106 mg/dL 70-105 Serum or plasma calcium measurement (mass/volume) 8.2 mg/dL 8.5-10.1 Serum or plasma total bilirubin measurement (mass/volu me) 0.4 mg/dL 0.1-1.0 Serum or plasma alkaline phosphatase dorian surement (enzymatic activity/volume) 75 U/L 40-136 Serum or plasma aspartate aminotransfera se measurement (enzymatic activity/volume) 14 U/L 5-34 Serum or plasma alanine aminotransferase measurement (enzymatic activity/volume) 8 U/L 0-55 Serum or plasma protein measurement (mass/volume) 5.9 g/dL 6.4-8.2 Serum or plasma albumin measurement (mass/volume) 3.3 g/dL 3.2-4.5 CALCIUM CORRECTED 8.8 mg/dL 8.5-10.1 Lipase - 07/01/19 08:52 Lipase < U/L 8-78 Serum or plasma C reactive protein measu rement (mass/volume) - 07/01/19 08:52 Serum or plasma C reactive protein measurement (mass/v olume) 4.86 mg/dL 0.00-0.50 Manual absolute plasma cell count - 06/14 11/02 08:52 Blood monocytes/100 leukocytes 7 % NRG Manual blood segmented neutrophils/100 leukocytes 65 % NRG Manual blood lymphocytes/100 leukocytes 7 % NRG Manual eosinophils/100 leukocytes in nose 21 % NRG Blood polychromasia detection by light microscopy SLIGHT NRG Blood anisocytosis detection by light microscopy S LIGHT NRG Blood macrocytes detection by light microscopy SLI GHT NRG Complete urinalysis with reflex to cultu re - 07/01/19 09:44 Urine color determination YELLOW NRG Urine clarity determination CLEAR NR G Urine pH measurement by test strip 6.0 5-9 Specific gravity of urine by test strip 1.015 1.016-1.022 Urine protein assay by test strip, semi-quantitative NEGATIVE NEGATIVE Urine glucose detection by automated test strip NE GATIVE NEGATIVE Erythrocytes detection in urine sediment by light micr oscopy TRACE-I NEGATIVE Urine ketones detection by automated test strip NE GATIVE NEGATIVE Urine nitrite detection by test strip NEGATIVE NEGATIVE Urine total bilirubin detection by test strip NEGA TIVE NEGATIVE Urine urobilinogen measurement by automated test strip (mass/volume) 1.0 mg/dL < = 1.0 Urine leukocyte esterase detection by dipstick NEG ATIVE NEGATIVE Automated urine sediment erythrocyte cou nt by microscopy (number/high power field) RARE NRG Automated urine sediment leukocyte count by microscopy (number/high power field) [HPF] NRG Bacteria detection in urine sediment by light microsco py TRACE NRG Squamous epithelial cells detection in u rine sediment by light microscopy 0-2 NRG Crystals detection in urine sediment by light microsco py NONE NRG Casts detection in urine sediment by light microscopy NONE NRG Mucus detection in urine sediment by light microscopy NEGATIVE NRG Complete urinalysis with reflex to culture NO NRG Bacterial blood culture - 07/01/19 11:53 Bacterial blood culture NG NRG Bacterial blood culture - 07/01/19 11:53 Bacterial blood culture NG NRG Whole blood basic metabolic panel - 06/14 12/03 04:10 Serum or plasma sodium measurement (moles/volume) 141 mmol/L 135-145 Serum or plasma potassium measurement (moles/volume) 4.1 mmol/L 3.6-5.0 Serum or plasma chloride measurement (moles/volume) 107 mmol/L 98-107 Carbon dioxide 24 mmol/L 21-32 Serum or plasma anion gap determination (moles/volume) 10 mmol/L 5-14 Serum or plasma urea nitrogen measurement (mass/volume ) 5 mg/dL 7-18 Serum or plasma creatinine measurement (mass/volume) 0.66 mg/dL 0.60-1.30 Serum or plasma urea nitrogen/creatinine mass ratio 8 NRG Serum or plasma creatinine measurement w ith calculation of estimated glomerular filtration rate > NRG Serum or plasma glucose measurement (mass/volume) 78 mg/dL 70-105 Serum or plasma calcium measurement (mass/volume) 7.8 mg/dL 8.5-10.1 Complete blood count (CBC) with automate d white blood cell (WBC) differential - 07/02/19 04:10 Blood leukocytes automated count (number/volume) 26.3 10*3/uL 4.3-11.0 Blood erythrocytes automated count (number/volume) 3.85 10*6/uL 4.35-5.85 Venous blood hemoglobin measurement (mass/volume) 11.6 g/dL 11.5-16.0 Blood hematocrit (volume fraction) 37 % 35-52 Automated erythrocyte mean corpuscular volume 96 [ foz_us] 80-99 Automated erythrocyte mean corpuscular h emoglobin (mass per erythrocyte) 30 pg 25-34 Automated erythrocyte mean corpuscular h emoglobin concentration measurement (mass/volume) 32 g/dL 32-36 Automated erythrocyte distribution width ratio 15. 3 % 10.0- 14.5 Automated blood platelet count (count/volume) 179 10*3/uL 130-400 Automated blood platelet mean volume measurement 13.7 [foz_us] 7.4-10.4 Automated blood neutrophils/100 leukocytes 58 % 42-75 Automated blood lymphocytes/100 leukocytes 13 % 12-44 Blood monocytes/100 leukocytes 7 % 0-12 Automated blood eosinophils/100 leukocytes 22 % 0-10 Automated blood basophils/100 leukocytes 0 % 0-10 Blood neutrophils automated count (number/volume) 15.3 10*3 1.8-7.8 Blood lymphocytes automated count (number/volume) 3.4 10*3 1.0-4.0 Blood monocytes automated count (number/volume) 1. 8 10*3 0.0-1.0 Automated eosinophil count 5.7 10*3/uL 0 .0-0.3 Automated blood basophil count (count/volume) 0.1 10*3/uL 0.0-0.1 Blood blood smear finding identification by light micr oscopy YES NRG Encounters ACCT No. Visit Date/Time Discharge Status Pt. Type Provider Facility Loc./Unit Complaint [id number] 07/01/2019 11:20:00 020 14:41:00 DIS Outpatient MANNY CANELA MD Via [facility] 4TH INTRACTABLE PAIN L HIP, LEUKOCYTOSIS [id number] 07/03/2019 12:08:[address] Outpatient JOSE REBOLLEDO MD Via [facility] RAD LUNG CANCER [id number] 07/02/2019 13:39:[address] Outpatient JOSE REBOLLEDO MD [facility] ONC
[2019-07-05] MEDS ORDERED: fentaNYL INJECTION 100 MCG/2 ML AMP IVP STA (14:37)
[2019-07-05] MEDS ORDERED: morphine INJ 10 MG/ML 1ML (SYR OR VIAL) IVP STA (14:45)
--- NOTE | 2019-07-05 14:45 | ED General ---
General Chief Complaint: Lower Extremity Stated Complaint: R FOOT SWELLING Nursing Triage Note: ARRIVED VIA AMB WITH WALKER WITH COMPLAINTS OF RIGHT FOOT SWELLING, PAIN, AND REDNESS STARTING OVER NIGHT. RECENT ADMIT TO THE HOSPITAL AND DX WITH LUNG CA WITH METS. Nursing Sepsis Screen: No Definite Risk Source of Information: Patient, Family History of Present Illness Date Seen by Provider: Jul 05, 2019 Time Seen by Provider: 14:29 Initial Comments PT ARRIVES VIA POV FROM HOME, WALKS IN WITH WALKER PT HAS MULTIPLE PAIN COMPLAINTS STATES SHE "JUST CAN'T GET ON TOP OF THE PAIN" PT HAS BEEN ON HYDROCODONE/OPIATES NEARLY HER WHOLE LIFE FOR CHRONIC BACK PAIN AND VARIOUS OTHER PAIN COMPLAINTS PT WAS RECENTLY DX WITH METASTATIC LUNG CANCER, IN THE LAST MONTH, AND WAS TOLD "IT WAS EVERYWHERE" PT HAS SMOKED ALL OF HER LIFE PT WAS ADMITTED EARLIER THIS WEEK FOR PAIN IN LEFT HIP MOSTLY--HAD XRAYS, CT SCAN AND MRI--SHOWED SEVERE / END STAGE DEGENERATIVE ARTHRITIS OF LEFT HIP, ALONG WITH METASTATIC DISEASE IN LEFT FEMORAL HEAD AND RIGHT ILIAC CREST. C/O ONGOING PAIN IN LEFT GROIN/HIP/LOWER ABDOMEN, STATES SHE ALSO HAS BEEN HAVING PAIN IN RIGHT MID AND LOWER ABDOMEN--ALL ONGOING FOR MONTHS WENT TO [facility] ER A MONTH AGO FOR RIGHT SIDED ABDOMINAL PAIN AND HAD ULTRASOUND OF GALLBLADDER, WAS TOLD HER LIVER WAS INFLAMED. STATES SHE HAS HAD PAIN AND SWELLING TO RIGHT FOOT AND ANKLE SINCE LAST NIGHT--IS HER MAIN COMPLAINT / REASON FOR COMING TO ER STATES HER LEGS HAVE BEEN VERY ITCHY SINCE LAST NIGHT. HAS SEEN DR. REBOLLEDO FOR ONCOLOGY--POSSIBLY WILL START CHEMO AND RADIATION, BUT THIS HAS NOT BEEN SET UP YET. DOES NOT HAVE A FOLLOW UP APPOINTMENT AT THIS TIME HAS AN APPOINTMENT ON SUNDAY WITH DR. CANCHOLA TO GET A PORT PLACED. PCP: GOES TO [facility] IN [place]--SEES METAL FLOW COORDINATOR THERE. Allergies and Home Medications Allergies Coded Allergies: Sulfa (Sulfonamide Antibiotics) (Unverified Allergy, Mild, HIVES, SWELLING AND ITCHING, 06/25/06) Home Medications Acetaminophen 325 Mg Capsule, 975 MG PO TID Prescribed by: MANNY CANELA on 07/02/19 1031 Betamethasone/Propylene Glyc 15 Gm Cream..g., 1 APPLIC TOP DAILY PRN for RASH, (Reported) APPLY TO HANDS AND FEET Calcium Carbonate 400 Mg Tab.chew, 800 MG PO PRN PRN for INDIGESTION, (Reported) Cetirizine HCl 10 Mg Tablet, 10 MG PO DAILY PRN for ALLERGY SYMPTOMS, (Reported) Gabapentin 400 Mg Capsule, 400 MG PO TID, (Reported) Hydrocodone/Acetaminophen 1 Each Tablet, 1 TAB PO Q6H PRN for PAIN-MODERATE (5- 7), (Reported) Ibuprofen 200 Mg Tablet, 400 MG PO Q6H PRN for PAIN-MILD (1-4), (Reported) Oxycodone HCl 10 Mg Tab.er.12h, 10 MG PO BID PRN for PAIN-SEVERE Prescribed by: MANNY CANELA on 07/02/19 1031 Oxycodone HCl 10 Mg Tablet, 10 MG PO Q4H PRN for PAIN-SEVERE (8-10) Prescribed by: MANNY CANELA on 07/02/19 1031 Patient Home Medication List Home Medication List Reviewed: Yes Review of Systems Review of Systems Constitutional: no symptoms reported; No chills, No diaphoresis, No dizziness, No fever, No malaise EENTM: no symptoms reported Respiratory: no symptoms reported; No cough, No short of breath, No wheezing Cardiovascular: no symptoms reported; No chest pain, No palpitations, No syncope Gastrointestinal: see HPI, abdominal pain, loss of appetite; No nausea, No vomiting Genitourinary: no symptoms reported; No decreased output Musculoskeletal: see HPI, back pain, joint pain, neck pain Skin: see HPI, pruritus Psychiatric/Neurological: Denies Headache, Denies Numbness, Denies Seizure; Tingling (IN FINGERS) Hematologic/Lymphatic: No Symptoms Reported Immunological/Allergic: no symptoms reported Past Wukjkcb-Ryylsc-Kidmgd Hx Past Med/Social Hx: Reviewed and Corrections made Patient Social History Alcohol Use: Rarely Uses (HISTORY OF ABUSE, NOW RARELY USES) Recreational Drug Use: Yes (THC) Drug of Choice: THC Smoking Status: Current Everyday Smoker (4 PPD) Type Used: Cigarettes (4 PPD) Recent Foreign Travel: No Contact w/Someone Who Travel: No Recent Infectious Disease Expo: No Recent Hopitalizations: No Immunizations Up To Date Date of Pneumonia Vaccine: Jun 30, 2014 Seasonal Allergies Seasonal Allergies: No Past Medical History Surgeries: Yes (colon resection) Abdominal, Appendectomy, Hysterectomy, Joint Replacement, Neurological, Orthopedic Respiratory: Yes (METASTATIC LUNG CANCER DX 05/2019; NOCTURNAL HYPOXIA-NEW DX. ) COPD Cardiac: No Neurological: No POT FIRER History: Hysterectomy, Menopausal Genitourinary: No Gastrointestinal: Yes Diverticulosis Musculoskeletal: Yes Degenerate Disk Disease, Arthritis, Chronic Back Pain Endocrine: Yes Diabetes, Non-Insulin dep HEENT: No Cancer: Yes (METASTATIC LUNG CANCER--TO BONE, WIDESPREAD) Bone, Lung Did You Recieve Any Treatments: No (NO TREATMENT OF 07/05/19) Psychosocial: No Integumentary: No Blood Disorders: No Family Medical History Neoplasm 19 FATHER (BLADDER CANCER) 19 MOTHER (OVARIAN CANCER) G8 BROTHER (COLON CANCER) G8 SISTER (BACK AND LUNG CANCER) PSH: - X 2 -HYSTERECTOMY/BSO FOR DUB -APPENDECTOMY -COLON RESECTION FOR DIVERTICULITIS -BACK SURGERY X 4 -BILATERAL KNEE SCOPES -RIGHT HIP REPLACEMENT DUE TO ARTHRITIS Physical Exam Vital Signs Vital Signs - First Documented 07/05/19 07/05/19 14:22 16:48 Temp 37.2 Pulse 83 Resp 16 B/P (MAP) 144/71 (95) Pulse Ox 98 O2 Delivery Room Air O2 Flow Rate 2.00 Capillary Refill : Less Than 3 Seconds Height, Weight, BMI Height: '" Weight: lbs. oz. kg; 24.00 BMI Method: General Appearance: No Apparent Distress, WD/WN, Other (REEKS OF CIGARETTES) Neck: Non Tender Respiratory: Normal Breath Sounds, No Accessory Muscle Use, No Respiratory Distress Cardiovascular: Regular Rate, Rhythm, No JVD, Normal Peripheral Pulses, Systolic Murmur (07/20) Gastrointestinal: Soft, Hepatomegaly, Tenderness (TENDERNESS TO RIGHT MID AND LOWER ABDOMEN AND RIGHT ILIAC CREST AREA. TENDERNESS TO LEFT LOWER ABDOMEN AND GROIN. ) Back: No CVA Tenderness Extremity: Other (TENDERNESS TO LEFT HIP. TENDERNESS AND SWELLING AND DIFFUSE ERYTHEMA TO RIGHT ANKLE AND FOOT. MOTOR/SENSORY/VASCULAR INTACT. ) Neurologic/Psychiatric: Alert, Oriented x3, No Motor/Sensory Deficits, Normal Mood/Affect, lining feller II-XII Norm as Tested Skin: Warm/Dry, Pallor, Other (EXTENSIVE SCRATCH BARTLETT AND SCABBED SORES TO BI LATERAL LOWER LEGS. ) Focused Exam Lactate Level 07/05/19 16:12: Lactic Acid Level 1.02 Lactic Acid Level Laboratory Tests Test 07/05/19 16:12 Lactic Acid Level 1.02 MMOL/L (0.50-2.00) Progress/Results/Core Measures Suspected Sepsis Recent Fever Within 48 Hours: No Infection Criteria Present: Suspected New Infection New/Unexplained Altered Menta: No Sepsis Screen: No Definite Risk SIRS Temperature: Pulse: 83 Respiratory Rate: 16 Laboratory Tests 07/05/19 14:43: White Blood Count 27.8H Blood Pressure 144 /71 Mean: 95 07/05/19 16:12: Lactic Acid Level 1.02 Laboratory Tests 07/05/19 14:43: Creatinine 0.68, INR Comment 1.2, Platelet Count 214, Total Bilirubin 0.6 Results/Orders Lab Results Laboratory Tests Test 07/05/19 14:43 07/05/19 15:10 07/05/19 16:12 Range/Units White Blood Count 27.8 H 4.3-11.0 10^3/uL Red Blood Count 4.18 L 4.35-5.85 10^6/uL Hemoglobin 12.7 11.5-16.0 G/DL Hematocrit 39 35-52 % Mean Corpuscular Volume 94 80-99 FL Mean Corpuscular Hemoglobin 30 25-34 PG Mean Corpuscular Hemoglobin Concent 32 32-36 G/DL Red Cell Distribution Width 15.2 H 10.0-14.5 % Platelet Count 214 130-400 10^3/uL Mean Platelet Volume 12.5 H 7.4-10.4 FL Neutrophils (%) (Auto) 42-75 % Lymphocytes (%) (Auto) 12-44 % Monocytes (%) (Auto) 0-12 % Eosinophils (%) (Auto) 0-10 % Basophils (%) (Auto) 0-10 % Neutrophils # (Auto) 1.8-7.8 X 10^3 Lymphocytes # (Auto) 1.0-4.0 X 10^3 Monocytes # (Auto) 0.0-1.0 X 10^3 Eosinophils # (Auto) 0.0-0.3 10^3/uL Basophils # (Auto) 0.0-0.1 10^3/uL Neutrophils % (Manual) 63 % Lymphocytes % (Manual) 11 % Monocytes % (Manual) 4 % Eosinophils % (Manual) 18 % Band Neutrophils 4 % Stomatocytes SLIGHT Erythrocyte Sedimentation Rate 64 H 0-30 MM/HR Prothrombin Time 15.3 H 12.2-14.7 SEC INR Comment 1.2 0.8-1.4 Activated Partial Thromboplast Time 39 H 24-35 SEC Sodium Level 141 135-145 MMOL/L Potassium Level 3.2 L 3.6-5.0 MMOL/L Chloride Level 101 98-107 MMOL/L Carbon Dioxide Level 28 21-32 MMOL/L Anion Gap 12 5-14 MMOL/L Blood Urea Nitrogen 6 L 7-18 MG/DL Creatinine 0.68 0.60-1.30 MG/DL Estimat Glomerular Filtration Rate > 60 BUN/Creatinine Ratio 9 Glucose Level 101 70-105 MG/DL Uric Acid 6.3 2.6-7.2 MG/DL Calcium Level 8.6 8.5-10.1 MG/DL Corrected Calcium 9.0 8.5-10.1 MG/DL Magnesium Level 2.0 1.6-2.4 MG/DL Total Bilirubin 0.6 0.1-1.0 MG/DL Aspartate Amino Transf (AST/SGOT) 13 5-34 U/L Alanine Aminotransferase (ALT/SGPT) 7 0-55 U/L Alkaline Phosphatase 88 40-136 U/L C-Reactive Protein High Sensitivity 9.91 H 0.00-0.50 MG/DL Total Protein 6.5 6.4-8.2 GM/DL Albumin 3.5 3.2-4.5 GM/DL Amylase Level 12 L 25-125 U/L Lipase < 4 L 8-78 U/L Urine Color YELLOW Urine Clarity CLEAR Urine pH 6.0 5-9 Urine Specific [place] 1.020 1.016-1.022 Urine Protein NEGATIVE NEGATIVE Urine Glucose (UA) NEGATIVE NEGATIVE Urine Ketones NEGATIVE NEGATIVE Urine Nitrite NEGATIVE NEGATIVE Urine Bilirubin NEGATIVE NEGATIVE Urine Urobilinogen 2.0 < = 1.0 MG/DL Urine Leukocyte Esterase NEGATIVE NEGATIVE Urine RBC (Auto) 2+ H NEGATIVE Urine RBC NONE /HPF Urine WBC NONE /HPF Urine Squamous Epithelial Cells 5-10 /HPF Urine Crystals NONE /LPF Urine Bacteria MODERATE H /HPF Urine Casts NONE /LPF Urine Mucus NEGATIVE /LPF Urine Culture Indicated YES Lactic Acid Level 1.02 0.50-2.00 MMOL/L My Orders Orders - MICHAEL LOMAS DO Ed Iv/Invasive Line Start (07/05/19 14:37) Amylase (07/05/19 14:37) Cbc With Automated Diff (07/05/19 14:37) Comprehensive Metabolic Panel (07/05/19 14:37) Lipase (07/05/19 14:37) Magnesium (07/05/19 14:37) Protime With Inr (07/05/19 14:37) Partial Thromboplastin Time (07/05/19 14:37) Ua Culture If Indicated (07/05/19 14:37) Foot, Right, 3 View (07/05/19 14:37) Ankle, Right, 3 Views (07/05/19 14:37) Fentanyl Injection (Sublimaze Injection (07/05/19 14:37) Morphine Injection (Morphine Injection (07/05/19 14:45) Manual Differential (07/05/19 14:43) Urine Culture (07/05/19 15:10) Uric Acid (07/05/19 15:49) Methylprednisolone Sod Succ (Solu-Medrol (07/05/19 16:00) Piperacillin Sodium/Tazobactam (Zosyn Vi (07/05/19 16:00) Hs C Reactive Protein (07/05/19 15:59) Erythrocyte Sedimentation Rate (07/05/19 15:59) Lactic Acid Analyzer (07/05/19 16:06) Blood Culture (07/05/19 16:06) Vancomycin Injection (Vancomycin Injecti (07/05/19 16:07) Medications Given in ED Current Medications Medications Dose Ordered Sig/Cosme Route Start Time Stop Time Status Last Admin Dose Admin Methylprednisolone Sodium Succinate 125 mg ONCE ONCE IVP 07/05/19 16:00 07/05/19 16:01 DC 07/05/19 16:23 125 MG Piperacillin Sod/ Tazobactam Sod 4.5 gm/Sodium Chloride 100 ml @ 200 mls/hr ONCE ONCE IV 07/05/19 16:00 07/05/19 16:29 DC 07/05/19 16:24 200 MLS/HR Vital Signs/I&O 07/05/19 07/05/19 07/05/19 14:22 16:36 16:48 Temp 37.2 Pulse 83 71 Resp 16 18 B/P (MAP) 144/71 (95) 119/98 Pulse Ox 98 94 O2 Delivery Room Air Room Air Nasal Cannula O2 Flow Rate 2.00 Capillary Refill : Less Than 3 Seconds Blood Pressure Mean: 95 Progress Note : Progress Note STATES "FENTANYL DOESN'T HELP AT ALL" MORPHINE ORDERED INSTEAD WITH MUCH IMPROVEMENT IN PAIN PT HAD DROP IN O2 SATS WHEN SHE SLEPT--PT AND DAUGHTER STATE THAT PT WAS JUST PRESCRIBED OXYGEN TO BE WORN AT NIGHT FOR THIS VERY PROBLEM, WAS DX WITH RECENT ADMIT. Diagnostic Imaging Comments XRAYS RIGHT FOOT AND ANKLE: SOFT TISSUE SWELLING AROUND FIRST MTP JOINT, WITH DEGENERATIVE CHANGES TO FIRST MTP JOINT AND MID FOOT, AND ANKLE JOINT EFFUSION. NO FRACTURE OR DISLOCATION PER RADIOLOGIST REPORT AT 1550 Reviewed: Reviewed by Me Departure Communication (Admissions) 1600--SPOKE WITH DR. CANELA, ACCEPTS PT FOR ADMIT Impression Primary Impression: CELLULITIS RIGHT FOOT AND ANKLE Additional Impressions: Leukocytosis RECENT DX OF METASTATIC LUNG CANCER BONE METASTASIS TO LEFT HIP AND RIGHT ILIAC BONE POSSIBLE GOUT Intractable pain Chronic back pain Nocturnal hypoxia Disposition: ADMITTED INPATIENT Condition: Improved Admissions Decision to Admit Reason: Admit from ER (General) Decision to Admit/Date: Jul 05, 2019 Time/Decision to Admit Time: 16:00 Departure-Patient Inst. Referrals: SAGE VICTORIA MD (PCP/Family) Primary Care Physician MICHAEL LOMAS DO Jul 05, 2019 14:45
[2019-07-05 14:53] LABS: HEMATOCRIT 39 % (35-52); HEMOGLOBIN 12.7 G/DL (11.5-16.0); MEAN CORPUSCULAR HEMOGLOBIN 30 PG (25-34); MEAN CORPUSCULAR HGB CONC 32 G/DL (32-36); MEAN CORPUSCULAR VOLUME 94 FL (80-99); MEAN PLATELET VOLUME 12.5 FL (7.4-10.4); PLATELET COUNT 214 10^3/uL (130-400); RED CELL DISTRIBUTION WIDTH 15.2 % (10.0-14.5); WHITE BLOOD COUNT 27.8 10^3/uL (4.3-11.0)
[2019-07-05 15:11] LABS: ALANINE AMINOTRANSFERASE 7 U/L (0-55); ALBUMIN 3.5 GM/DL (3.2-4.5); ALKALINE PHOSPHATASE 88 U/L (40-136); AMYLASE 12 U/L (25-125); BILIRUBIN,TOTAL 0.6 MG/DL (0.1-1.0); BUN/CREATININE RATIO 9; CALCIUM 8.6 MG/DL (8.5-10.1); CARBON DIOXIDE 28 MMOL/L (21-32); CHLORIDE 101 MMOL/L (98-107); CREATININE SERUM 0.68 MG/DL (0.60-1.30); GFR ESTIMATED > 60; GLUCOSE 101 MG/DL (70-105); LIPASE < 4 U/L (8-78); POTASSIUM 3.2 MMOL/L (3.6-5.0); SODIUM 141 MMOL/L (135-145); TOTAL PROTEIN 6.5 GM/DL (6.4-8.2)
[2019-07-05 15:12] LABS: INR 1.2 (0.8-1.4); PROTHROMBIN TIME PATIENT 15.3 SEC (12.2-14.7)
[2019-07-05 15:18] LABS: BILIRUBIN,URINE NEGATIVE (NEGATIVE); CLARITY,URINE CLEAR; COLOR,URINE YELLOW; GLUCOSE, URINE (UA) NEGATIVE (NEGATIVE); KETONES,URINE NEGATIVE (NEGATIVE); LEUKOCYTE ESTERASE ,URINE NEGATIVE (NEGATIVE); NITRITE,URINE NEGATIVE (NEGATIVE); PROTEIN,URINE NEGATIVE (NEGATIVE)
[2019-07-05 15:34] LABS: BACTERIA,URINE MODERATE /HPF
--- NOTE | 2019-07-05 15:38 | Diagnostic Imaging Report ---
HISTORY: Right foot swelling and pain. History of lung cancer. COMPARISON: None. TECHNIQUE: Three views of the right ankle. FINDINGS: No acute fracture or dislocation is seen in the right ankle. Alignment appears normal. There is mild degenerative change seen. There is a small right ankle joint effusion. There is a moderate-sized plantar enthesophyte and a small Achilles tendon enthesophyte. There is soft tissue swelling about the right ankle. IMPRESSION: Small right ankle joint effusion and surrounding soft tissue swelling with no acute osseous abnormality seen. Dictated by: Dictated on workstation # [id number]
--- NOTE | 2019-07-05 15:39 | Diagnostic Imaging Report ---
HISTORY: Right foot swelling and redness. COMPARISON: None. TECHNIQUE: Three views of the right foot. FINDINGS: No acute fracture or dislocation is seen in the right foot. Alignment appears normal. There are degenerative changes at the 1st MTP joint and in the midfoot. There is soft tissue swelling about the 1st MTP joint. Calcaneal enthesophytes are noted. IMPRESSION: Soft tissue swelling about the right 1st MTP joint with no acute osseous abnormality seen in the right foot. There are mild degenerative changes present. Dictated by: Dictated on workstation # [id number]
--- NOTE | 2019-07-05 15:51 | NUR ---
TO ROOM PATIENT REPORTS THAT MORPNINE HELPED WITH PAIN
[2019-07-05 15:57] LABS: BAND NEUTROPHILS 4 %; EOSINOPHILS % (MANUAL) 18 %; LYMPHOCYTES % (MANUAL) 11 %; MONOCYTES % (MANUAL) 4 %; NEUTROPHILS % (MANUAL) 63 %; STOMATOCYTES SLIGHT
[2019-07-05] MEDS ORDERED: PIPERACILLIN SODIUM/TAZOBACTAM 4.5 GM in NS (IVPB) 100 ML IV ONE (16:00)
[2019-07-05] MEDS ORDERED: methylPREDNISolone 125 MG (Solu-MEDROL) VIAL IVP ONE (16:00)
[2019-07-05] MEDS ORDERED: VANCOMYCIN INJECTION 750 MG in NS (IVPB) 250 ML IV SCH (16:00)
[2019-07-05] MEDS ORDERED: VANCOMYCIN 1500 MG/NS 500 ML IVPB IV NR ×2 (16:07)
--- OUTSIDE RECORDS SUMMARY | 2019-07-05 16:26 | XMS REPORT | Continuity of Care Document ---
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 07/02/2019 MANNY CANELA MD, [...] identification by light micr oscopy YES NRG Complete blood count (CBC) with automate d white blood cell (WBC) differential - 07/05/19 14:43 Blood leukocytes automated count (number/volume) 27.8 10*3/uL 4.3-11.0 Blood erythrocytes automated count (number/volume) 4.18 10*6/uL 4.35-5.85 Venous blood hemoglobin measurement (mass/volume) 12.7 g/dL 11.5-16.0 Blood hematocrit (volume fraction) 39 % 35-52 Automated erythrocyte mean corpuscular volume 94 [ foz_us] 80-99 Automated erythrocyte mean corpuscular h emoglobin (mass per erythrocyte) 30 pg 25-34 Automated erythrocyte mean corpuscular h emoglobin concentration measurement (mass/volume) 32 g/dL 32-36 Automated erythrocyte distribution width ratio 15. 2 % 10.0- 14.5 Automated blood platelet count (count/volume) 214 10*3/uL 130-400 Automated blood platelet mean volume measurement 12.5 [foz_us] 7.4-10.4 Automated blood neutrophils/100 leukocytes TNP [...] (count/volume) TNP 0.0-0.1 Comprehensive metabolic panel - 07/05/19 14:43 Serum or plasma sodium measurement (moles/volume) 141 mmol/L 135-145 Serum or plasma potassium measurement (moles/volume) 3.2 mmol/L 3.6-5.0 Serum or plasma chloride measurement (moles/volume) 101 mmol/L 98-107 Carbon dioxide 28 mmol/L 21-32 Serum or plasma anion gap determination (moles/volume) 12 mmol/L 5-14 Serum or plasma urea nitrogen measurement (mass/volume ) 6 mg/dL 7-18 Serum or plasma creatinine measurement (mass/volume) 0.68 mg/dL 0.60-1.30 Serum or plasma urea nitrogen/creatinine mass ratio 9 NRG Serum or plasma creatinine measurement w ith calculation of estimated glomerular filtration rate > NRG Serum or plasma glucose measurement (mass/volume) 101 mg/dL 70-105 Serum or plasma calcium measurement (mass/volume) 8.6 mg/dL 8.5-10.1 Serum or plasma total bilirubin measurement (mass/volu me) 0.6 mg/dL 0.1-1.0 Serum or plasma alkaline phosphatase dorian surement (enzymatic activity/volume) 88 U/L 40-136 Serum or plasma aspartate aminotransfera se measurement (enzymatic activity/volume) 13 U/L 5-34 Serum or plasma alanine aminotransferase measurement (enzymatic activity/volume) 7 U/L 0-55 Serum or plasma protein measurement (mass/volume) 6.5 g/dL 6.4-8.2 Serum or plasma albumin measurement (mass/volume) 3.5 g/dL 3.2-4.5 CALCIUM CORRECTED 9.0 mg/dL 8.5-10.1 Magnesium - 07/05/19 14:43 Magnesium 2.0 mg/dL 1.6-2.4 Serum or plasma amylase measurement (enz ymatic activity/volume) - 07/05/19 14:43 Serum or plasma amylase measurement (enzymatic activit y/volume) 12 U/L 25-125 Lipase - 07/05/19 14:43 Lipase < U/L 8-78 PT panel in platelet poor plasma by coag ulation assay - 07/05/19 14:43 Prothrombin time (PT) in platelet poor plasma by coagu lation assay 15.3 s 12.2-14.7 INR in platelet poor plasma or blood by coagulation as say 1.2 0.8-1.4 Activated partial thromboplastin time (a PTT) in platelet poor plasma bycoagulation assay - 07/05/19 14:43 Activated partial thromboplastin time (a PTT) in platelet poor plasma bycoagulation assay 39 s 24-35 Manual absolute plasma cell count - 06/15 05/05 14:43 Blood monocytes/100 leukocytes 4 % NRG Manual blood segmented neutrophils/100 leukocytes 63 % NRG Blood band neutrophils/100 leukocytes 4 % NRG Manual blood lymphocytes/100 leukocytes 11 % NRG Manual eosinophils/100 leukocytes in nose 18 % NRG Blood stomatocytes detection by light microscopy S LIGHT NRG Serum or plasma uric acid measurement (m ass/volume) - 07/05/19 14:43 Serum or plasma uric acid measurement (mass/volume) 6.3 mg/dL 2.6-7.2 Serum or plasma C reactive protein measu rement (mass/volume) - 07/05/19 14:43 Serum or plasma C reactive protein measurement (mass/v olume) 9.91 mg/dL 0.00-0.50 Complete urinalysis with reflex to cultu re - 07/05/19 15:10 Urine color determination YELLOW NRG Urine clarity determination CLEAR NR G Urine pH measurement by test strip 6.0 5-9 Specific gravity of urine by test strip 1.020 1.016-1.022 Urine protein assay by test strip, semi-quantitative NEGATIVE NEGATIVE Urine glucose detection by automated test strip NE GATIVE NEGATIVE Erythrocytes detection in urine sediment by light micr oscopy 2+ NEGATIVE Urine ketones detection by automated test strip NE GATIVE NEGATIVE Urine nitrite detection by test strip NEGATIVE NEGATIVE Urine total bilirubin detection by test strip NEGA TIVE NEGATIVE Urine urobilinogen measurement by automated test strip (mass/volume) 2.0 mg/dL < = 1.0 Urine leukocyte esterase detection by dipstick NEG ATIVE NEGATIVE Automated urine sediment erythrocyte cou nt by microscopy (number/high power field) NONE NRG Automated urine sediment leukocyte count by microscopy (number/high power field) NONE NRG Bacteria detection in urine sediment by light microsco py MODERATE NRG Squamous epithelial cells detection in u rine sediment by light microscopy 5-10 NRG Crystals detection in urine sediment by light microsco py NONE NRG Casts detection in urine sediment by light microscopy NONE NRG Mucus detection in urine sediment by light microscopy NEGATIVE NRG Complete urinalysis with reflex to culture YES NRG Encounters ACCT No. Visit Date/Time Discharge Status Pt. Type Provider Facility Loc./Unit Complaint [id number] 07/01/2019 11:20:00 020 14:41:00 DIS Outpatient MANNY CANELA MD [facility] 4TH INTRACTABLE PAIN L HIP, LEUKOCYTOSIS [id number] 07/05/2019 14:55:00 Document Registration [id number] 07/03/2019 12:08:[address] Outpatient JOSE REBOLLEDO MD [facility] RAD LUNG CANCER [id number] 07/02/2019 13:39:[address] Outpatient JOSE REBOLLEDO MD [facility] ONC
--- NOTE | 2019-07-05 17:09 | NUR ---
VALENTIN DUNLAP admitted to room 425-1, with an admitting diagnosis of CELLULITIS, on 07/05/19 from ER via CART, accompanied by STAFF.VALENTIN DUNLAP introduced to surroundings, call light, bed controls, phone, TV, temperature control, lights, meal times, smoking policy, visitor policy, side rail policy, bathrooms and showers. Patient Rights given to patient in the handbook.VALENTIN DUNLAP verbalizes understanding that [facility] is not responsible for the loss or damage to any personal effects or valuables that are kept in the patients posession during their hospitalization. The following Patient Care Plans were discussed with the PT: Discharge Planning, PAIN CONTROL,IV THERAPY, and TESTS AND PROCEDURES. VALENTIN DUNLAP verbalizes understanding of Interdisciplinary Patient Education. Patient and/or family were informed about the Rapid Response Team and its purpose.
[2019-07-05] MEDS ORDERED: 1/2 NS W/KCL 20 MEQ/L 1,000 ML IV ONE (17:41)
[2019-07-05] MEDS ORDERED: COLCHICINE 0.6 MG (COLCRYS) TABLET PO STA (17:50)
[2019-07-05 17:55] VITALS: BP 143/80
[2019-07-05] MEDS ORDERED: methylPREDNISolone 125 MG (Solu-MEDROL) VIAL IV SCH (18:00)
[2019-07-05] MEDS ORDERED: morphine INJ 4 MG/ML 1 ML (VIAL/SYRINGE) IV PRN (18:00)
[2019-07-05] MEDS ORDERED: 1/2 NS W/KCL 20 MEQ/L 1,000 ML IV SCH (18:00)
[2019-07-05] MEDS ORDERED: VANCOMYCIN INJECTION 0.1 MG in NS (IVPB) 250 ML IV SCH (18:00)
[2019-07-05] MEDS: NovoLOG/HumaLOG RANGE A SC SCH ×2 (18:17→21:10)
[2019-07-05] MEDS: 1/2 NS W/KCL 20 MEQ/L 1,000 ML IV SCH (18:21)
[2019-07-05 19:09] VITALS: BP 132/75
[2019-07-05] MEDS ORDERED: COLCHICINE 0.6 MG (COLCRYS) TABLET PO SCH (21:00)
[2019-07-05] MEDS: methylPREDNISolone 125 MG (Solu-MEDROL) VIAL IV SCH (21:10)
[2019-07-05] MEDS ORDERED: PIPERACILLIN/TAZOBACTAM (BULK) 4.5 GM in NS (IVPB) 100 ML IV SCH (22:00)
[2019-07-05] MEDS ORDERED: NS (IVPB) 100 ML ONE (22:10)
[2019-07-05] MEDS ORDERED: PIPERACILLIN/TAZO 4.5 GM VIAL (ZOSYN) IV ONE (22:10)
[2019-07-05] MEDS: PIPERACILLIN/TAZO 4.5 GM/NS 100 ML IV SCH ×2 (22:36)
[2019-07-05 23:55] VITALS: BP 129/78
[2019-07-06] MEDS: methylPREDNISolone 125 MG (Solu-MEDROL) VIAL IV SCH (03:07)
[2019-07-06] MEDS: 1/2 NS W/KCL 20 MEQ/L 1,000 ML IV SCH (03:07)
[2019-07-06 04:31] VITALS: BP 147/74
[2019-07-06 04:39] LABS: BASOPHILS % (AUTO) 0 % (0-10); EOSINOPHILS % (AUTO) 4 % (0-10); HEMATOCRIT 40 % (35-52); HEMOGLOBIN 12.7 G/DL (11.5-16.0); LYMPHOCYTES % (AUTO) 8 % (12-44); MEAN CORPUSCULAR HEMOGLOBIN 30 PG (25-34); MEAN CORPUSCULAR HGB CONC 32 G/DL (32-36); MEAN CORPUSCULAR VOLUME 94 FL (80-99); MEAN PLATELET VOLUME 13.5 FL (7.4-10.4); MONOCYTES % (AUTO) 4 % (0-12); NEUTROPHILS # (AUTO) 20.3 X 10^3 (1.8-7.8); NEUTROPHILS % (AUTO) 84 % (42-75); PLATELET COUNT 212 10^3/uL (130-400); RED CELL DISTRIBUTION WIDTH 15.1 % (10.0-14.5); WHITE BLOOD COUNT 24.3 10^3/uL (4.3-11.0)
[2019-07-06 05:01] LABS: ALANINE AMINOTRANSFERASE 11 U/L (0-55); ALBUMIN 3.1 GM/DL (3.2-4.5); ALKALINE PHOSPHATASE 85 U/L (40-136); BILIRUBIN,TOTAL 0.4 MG/DL (0.1-1.0); BUN/CREATININE RATIO 11; CALCIUM 7.9 MG/DL (8.5-10.1); CARBON DIOXIDE 23 MMOL/L (21-32); CHLORIDE 105 MMOL/L (98-107); CREATININE SERUM 0.66 MG/DL (0.60-1.30); GFR ESTIMATED > 60; GLUCOSE 163 MG/DL (70-105); POTASSIUM 4.3 MMOL/L (3.6-5.0); SODIUM 139 MMOL/L (135-145)
[2019-07-06] MEDS ORDERED: PIPERACILLIN/TAZO 4.5 GM VIAL (ZOSYN) IV ONE (05:20)
[2019-07-06] MEDS ORDERED: NS (IVPB) 100 ML ONE (05:20)
[2019-07-06] MEDS: NovoLOG/HumaLOG RANGE A SC SCH (05:51)
[2019-07-06] MEDS: PIPERACILLIN/TAZO 4.5 GM/NS 100 ML IV SCH ×2 (05:51)
[2019-07-06] MEDS ORDERED: FLU QUADRIvalent (5+ YOA) 2019-2020 (AFLURIA) 0.5 ML IM ONE ×2 (07:00→09:43)
[2019-07-06 07:29] VITALS: BP 147/74
[2019-07-06] MEDS ORDERED: COLCHICINE 0.6 MG (COLCRYS) TABLET PO SCH (09:00)
[2019-07-06] MEDS ORDERED: oxyCODONE ER 10 MG (OxyCONTIN CR) TAB PO ONE (09:30)
[2019-07-06] MEDS ORDERED: OXYC30TA77 PO (10:23)
[2019-07-06] MEDS ORDERED: OXYC10TA7 PO (10:23)
[2019-07-06] MEDS ORDERED: PRED10TA22 PO (10:23)
[2019-07-06 11:20] VITALS: BP 147/74
--- NOTE | 2019-07-06 11:20 | NUR ---
VALENTIN DUNLAP demonstrates understanding of discharge instructions and accurately returns instructions upon questioning. Copy of Post-Discharge Instructions given to PT. VALENTIN DUNLAP is able to manage continuing needs after discharge. Patients belongings returned to PT. Patient discharged from 425-1 on 07/06/19 at 1120. VALENTIN DUNLAP left floor via W/C, accompanied by STAFF AND DAUGHTER PER AUTO.
[2019-07-06] MEDS ORDERED: ALLO100T PO (12:43)
--- NOTE | 2019-07-06 12:48 | Discharge Summary ---
Discharge Summary Hospital Course Was the Problem List Reviewed?: Yes Hospital Course Date of Admission: Jul 05, 2019 at 16:00 Admission Diagnosis : Cellulitis Family Physician/Provider: Sarath Briscoe MD Date of Discharge: 07/06/19 Discharge Diagnosis: Acute gout flare Hospital Course: Gabriela Lock is a 73-year-old female who presented with right foot redness and swelling and was admitted with concern for cellulitis versus gout. She was started on both IV antibiotics for cellulitis and a culture seen and steroids for gout. Her redness and swelling improved rapidly and was inconsistent with cellulitis. The antibiotics were discontinued. She was given a short course of steroids. She was given a prescription for allopurinol to begin after her steroids. Her cancer pain was poorly controlled and a prescription was given to increase her long-acting OxyContin. She was also given a refill for her short acting oxycodone. She is scheduled to have a port placed this week to begin chemotherapy. She showed follow-up with Dr. Rebolledo this week. Labs and Pending Lab Test: Laboratory Tests 07/05/19 14:43: White Blood Count 27.8H, Red Blood Count 4.18L, Hemoglobin 12.7, Hematocrit 39, Mean Corpuscular Volume 94, Mean Corpuscular Hemoglobin 30, Mean Corpuscular Hemoglobin Concent 32, Red Cell Distribution Width 15.2H, Platelet Count 214, Mean Platelet Volume 12.5H, Neutrophils (%) (Auto) , Lymphocytes (%) (Auto) , Monocytes (%) (Auto) , Eosinophils (%) (Auto) , Basophils (%) (Auto) , Neutrophils # (Auto) , Lymphocytes # (Auto) , Monocytes # (Auto) , Eosinophils # (Auto) , Basophils # (Auto) , Neutrophils % (Manual) 63, Lymphocytes % (Manual) 11, Monocytes % (Manual) 4, Eosinophils % (Manual) 18, Band Neutrophils 4, Stomatocytes SLIGHT, Erythrocyte Sedimentation Rate 64H, Prothrombin Time 15.3H, INR Comment 1.2, Activated Partial Thromboplast Time 39H, Sodium Level 141, Potassium Level 3.2L, Chloride Level 101, Carbon Dioxide Level 28, Anion Gap 12, Blood Urea Nitrogen 6L, Creatinine 0.68, Estimat Glomerular Filtration Rate > 60, BUN/Creatinine Ratio 9, Glucose Level 101, Uric Acid 6.3, Calcium Level 8.6, Corrected Calcium 9.0, Magnesium Level 2.0, Total Bilirubin 0.6, Aspartate Amino Transf (AST/SGOT) 13, Alanine Aminotransferase (ALT/SGPT) 7, Alkaline Phosphatase 88, C-Reactive Protein High Sensitivity 9.91H, Total Protein 6.5, Albumin 3.5, Amylase Level 12L, Lipase < 4L 07/05/19 15:10: Urine Color YELLOW, Urine Clarity CLEAR, Urine pH 6.0, Urine Specific [place] 1.020, Urine Protein NEGATIVE, Urine Glucose (UA) NEGATIVE, Urine Ketones NEGATIVE, Urine Nitrite NEGATIVE, Urine Bilirubin NEGATIVE, Urine Urobilinogen 2.0, Urine Leukocyte Esterase NEGATIVE, Urine RBC (Auto) 2+H, Urine RBC NONE, Urine WBC NONE, Urine Squamous Epithelial Cells 5-10, Urine Crystals NONE, Urine Bacteria MODERATEH, Urine Casts NONE, Urine Mucus NEGATIVE, Urine Culture Indicated YES 07/05/19 16:12: Lactic Acid Level 1.02 07/05/19 17:30: Glucometer 98 07/05/19 20:21: Glucometer 211H 07/06/19 04:03: White Blood Count 24.3H, Red Blood Count 4.25L, Hemoglobin 12.7, Hematocrit 40, Mean Corpuscular Volume 94, Mean Corpuscular Hemoglobin 30, Mean Corpuscular Hemoglobin Concent 32, Red Cell Distribution Width 15.1H, Platelet Count 212, Mean Platelet Volume 13.5H, Neutrophils (%) (Auto) 84H, Lymphocytes (%) (Auto) 8L, Monocytes (%) (Auto) 4, Eosinophils (%) (Auto) 4, Basophils (%) (Auto) 0, Neutrophils # (Auto) 20.3H, Lymphocytes # (Auto) 2.0, Monocytes # (Auto) 1.0, Eosinophils # (Auto) 1.0H, Basophils # (Auto) 0.0, Sodium Level 139, Potassium Level 4.3, Chloride Level 105, Carbon Dioxide Level 23, Anion Gap 11, Blood Urea Nitrogen 7, Creatinine 0.66, Estimat Glomerular Filtration Rate > 60, BUN/Creatinine Ratio 11, Glucose Level 163H, Calcium Level 7.9L, Corrected Calcium 8.6, Total Bilirubin 0.4, Aspartate Amino Transf (AST/SGOT) 13, Alanine Aminotransferase (ALT/SGPT) 11, Alkaline Phosphatase 85, Total Protein 6.0L, Albumin 3.1L 07/06/19 05:21: Glucometer 156H Microbiology 07/05/19 Urine Culture - Preliminary, Resulted Probable Coag Negative Staph Home Meds Active Prednisone 10 Mg Tab.ds.pk 10 Mg PO DAILY Take 6 tabs(60mg)daily,decrease by 1 tab(10MG)daily. Oxycodone HCl 10 Mg Tablet 10 Mg PO Q4H PRN 7 Days Oxycontin (Oxycodone HCl) 30 Mg Tab.er.12h 30 Mg PO BID 7 Days Tylenol (Acetaminophen) 325 Mg Capsule 975 Mg PO TID 7 Days Reported Tums Ultra (Calcium Carbonate) 400 Mg Tab.chew 800 Mg PO PRN PRN Advil (Ibuprofen) 200 Mg Tablet 400 Mg PO Q6H PRN Zyrtec (Cetirizine HCl) 10 Mg Tablet 10 Mg PO DAILY PRN Betamethasone Dp Aug 0.05% Crm (Betamethasone/Propylene Glyc) 15 Gm Cream..g. 1 Applic TOP DAILY PRN APPLY TO HANDS AND FEET Gabapentin 400 Mg Capsule 400 Mg PO TID Assessment/Pt Instructions take medications as prescribed. Complete her course of steroids. Begin taking allopurinol after you are done with the steroids. Increase your long-acting estephania n medicine to OxyContin 30 mg twice daily. Follow-up with your oncologist. Discharge Planning: <30 minutes discharge planning Discharge Instructions Discharge Diet: No Restrictions Activity as Tolerated: Yes Discharge Physical Examination Vital Signs Vital Signs Date Time Temp Pulse Resp B/P (MAP) Pulse Ox O2 Delivery O2 Flow Rate FiO2 07/06/19 11:20 36.7 57 20 147/74 98 Nasal Cannula 2.00 General Appearance: No Apparent Distress, WD/WN Respiratory: Lungs Clear, Normal Breath Sounds, No Respiratory Distress Cardiovascular: Regular Rate, Rhythm, No Edema, No Murmur Gastrointestinal: Normal Bowel Sounds, Non Tender, Soft Extremity: Normal Inspection, Non Tender, No Pedal Edema Skin: Normal Color, Warm/Dry Neurologic/Psychiatric: Alert, Oriented x3, No Motor/Sensory Deficits, Normal Mood/Affect Allergies: Coded Allergies: Sulfa (Sulfonamide Antibiotics) (Unverified Allergy, Mild, HIVES, SWELLING AND ITCHING, 06/25/06) Copy Copies To 1: JOSE REBOLLEDO MD Discharge Summary Date of Admission Jul 05, 2019 at 16:00 Date of Discharge Jul 06, 2019 at 11:20 Discharge Date: Jul 06, 2019 Discharge Time: 11:20 Admission Diagnosis cellulitis Discharge Diagnosis (1) Acute gout of right foot Status: Acute (2) Pain of metastatic malignancy Status: Acute Clinical Quality Measures DVT/VTE Risk/Contraindication: Risk Factor Score Per Nursin RFS Level Per Nursing on Admit: 4+=Very High MANNY CANELA MD Jul 06, 2019 12:48
[2019-07-06] MEDS ORDERED: VANCOMYCIN 1500 MG/NS 500 ML IVPB IV SCH ×2 (16:00)
[2019-07-09] MEDS ORDERED: SEVOFLURANE (ULTANE) 15 ML INHAL SOLN ONE (11:21)
[2019-07-09] MEDS ORDERED: LIDOCAINE PF 2% 5 ML (XYLOCAINE) VIAL ONE (11:21)
[2019-07-09] MEDS ORDERED: proPOfol 200 MG/20 ML (DIPRIVAN) VIAL IV ONE (11:21)
[2019-07-09] MEDS ORDERED: ONDANSETRON 4 MG/2 ML (SDV) Z0FRAN ONE (11:37)
== END 2019-07-06 11:20 | disposition home or self-care (01) ==
LOC: EDUNIT# 14:21 → ER 14:23 → 4TH 16:00
PROVIDERS: ADMIT Internal Medicine; ATTEND Internal Medicine
DX: M10.9 Gout, unspecified (principal); G89.3 Neoplasm related pain (acute) (chronic); C34.90 Malignant neoplasm of unspecified part of unspecified bronchus or lung; C79.51 Secondary malignant neoplasm of bone; F17.210 Nicotine dependence, cigarettes, uncomplicated; J44.9 Chronic obstructive pulmonary disease, unspecified; E11.9 Type 2 diabetes mellitus without complications; Z87.19 Personal history of other diseases of the digestive system; Z88.2 Allergy status to sulfonamides; Z79.899 Other long term (current) drug therapy; Z96.643 Presence of artificial hip joint, bilateral; R09.02 Hypoxemia
CPT/HCPCS: 36415; 73610; 73630; 80053; 81000; 82150; 82962; 83605; 83690; 83735; 84550; 85007; 85025; 85027; 85610; 85652; 85730; 86141; 87040; 87088; 96365; 96375; G0378

== ENCOUNTER 2019-07-08 15:28 | Outpatient (CLI) | payer MEDICARE, OTHER ==
[~2019-07-08] VITALS: Ht 170 cm; Wt 75.1 kg
[~2019-07-08 15:28] MED LIST changes: +ALLO100T PO; +OXYC30TA77 PO; +PRED10TA22 PO
== END 2019-07-08 15:46 | disposition home or self-care (01) ==
LOC: PREOP 15:28
PROVIDERS: ATTEND Surgery
DX: Z01.818 Encounter for other preprocedural examination (principal)

== ENCOUNTER 2019-07-09 09:48 | Day surgery (SDC) | payer MEDICARE, OTHER ==
[~2019-07-09] VITALS: Ht 170 cm; Wt 75.1 kg
[2019-07-09] VITALS (10 sets, daily range): BP systolic 123–188; BP diastolic 61–84
[2019-07-09] MEDS ORDERED: ceFAZolin INJECTION 1,000 MG in WATER (STERILE) FOR INJECTION 10 ML IV ONE (10:00)
--- OUTSIDE RECORDS SUMMARY | 2019-07-09 10:11 | XMS REPORT | Continuity of Care Document ---
Author Organization Unknown Address Unknown Phone Unavailable Allergies Active Description Code Type Severity Reaction Onset Reported/Identified Relationship to Patient Clinical Status Yes Sulfa (Sulfonamide Antibiotics) [id number] Drug Allergy Mild HIVES, SWELLING 06/25/2006 Medications There is no data. 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 1 MALIGNANT (PRIMARY) NEOPLASM, UNSPECIFIE 07/02/2019 MANNY CANELA MD Ot D72.829 ELEVATED WHITE BLOOD CELL COUNT, UNSPECI 07/02/2019 MANNY CANELA MD Ot E11. 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 9 CHRONIC OBSTRUCTIVE PULMONARY DISEASE, U 07/02/2019 MANNY CANELA MD Ot J90 PLEURAL EFFUSION, NOT ELSEWHERE CLASSIFI 07/02/2019 MANNY CANELA MD Ot M16. 12 UNILATERAL PRIMARY OSTEOARTHRITIS, LEFT 07/02/2019 MANNY CANELA MD Ot M19. 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 2 ALLERGY STATUS TO SULFONAMIDES STATUS 07/02/2019 MANNY CANELA MD Ot Z96.641 PRESENCE OF RIGHT ARTIFICIAL HIP JOINT 07/05/2019 JOSE REBOLLEDO MD, Ot C78.7 SECONDARY MALIG NEOPLASM OF LIVER AND IN 07/05/2019 JOSE REBOLLEDO MD, Ot C79.51 SECONDARY MALIGNANT NEOPLASM OF BONE 07/05/2019 JOSE REBOLLEDO MD, Ot C80.1 MALIGNANT (PRIMARY) NEOPLASM, UNSPECIFIE 07/05/2019 JOSE REBOLLEDO MD, Ot C78.7 SECONDARY MALIG NEOPLASM OF LIVER AND IN 07/05/2019 JOSE REBOLLEDO MD, Ot C79.51 SECONDARY MALIGNANT NEOPLASM OF BONE 07/05/2019 JOSE REBOLLEDO MD, Ot C80.1 MALIGNANT (PRIMARY) NEOPLASM, UNSPECIFIE 07/05/2019 JOSE REBOLLEDO MD, Ot C78.7 SECONDARY MALIG NEOPLASM OF LIVER AND IN 07/05/2019 JOSE REBOLLEDO MD, Ot C79.51 SECONDARY MALIGNANT NEOPLASM OF BONE 07/05/2019 JOSE REBOLLEDO MD, Ot C80.1 MALIGNANT (PRIMARY) NEOPLASM, UNSPECIFIE Procedures There is no data. Results Test [...] protein measurement (mass/v olume) 9.91 mg/dL 0.00-0.50 Erythrocyte sedimentation rate by kaila gren method - 07/05/19 14:43 Erythrocyte sedimentation rate by westergren method 64 mm 0- 30 Complete urinalysis with reflex to cultu re [...] urinalysis with reflex to culture YES NRG Bacterial urine culture - 07/05/19 15:10 Bacterial urine culture [id number] NRG COLONY COUNT >100,000/ML NRG SUSCEPTIBILITY NO FURTHER TESTING NRG RAPID ID PRELIM RAPID ID TEST AT [facility] 07/05 11:00 NRG Blood lactic acid measurement (moles/vol ume) - 07/05/19 16:12 Blood lactic acid measurement (moles/volume) 1.02 mmol/L 0.50-2.00 Bacterial blood culture - 07/05/19 16:12 Bacterial blood culture NG NRG Capillary blood glucose measurement by g lucometer (mass/volume) - 07/05/19 17:30 Capillary blood glucose measurement by glucometer (mas s/volume) 98 mg/dL 70-110 Capillary blood glucose measurement by g lucometer (mass/volume) - 07/05/19 20:21 Capillary blood glucose measurement by glucometer (mas s/volume) 211 mg/dL 70-110 Complete blood count (CBC) with automate d white blood cell (WBC) differential - 07/06/19 04:03 Blood leukocytes automated count (number/volume) 24.3 10*3/uL 4.3-11.0 Blood erythrocytes automated count (number/volume) 4.25 10*6/uL 4.35-5.85 Venous blood hemoglobin measurement (mass/volume) 12.7 g/dL 11.5-16.0 Blood hematocrit (volume fraction) 40 % 35-52 Automated erythrocyte mean corpuscular volume 94 [ foz_us] 80-99 Automated erythrocyte mean corpuscular h emoglobin (mass per erythrocyte) 30 pg 25-34 Automated erythrocyte mean corpuscular h emoglobin concentration measurement (mass/volume) 32 g/dL 32-36 Automated erythrocyte distribution width ratio 15. 1 % 10.0- 14.5 Automated blood platelet count (count/volume) 212 10*3/uL 130-400 Automated blood platelet mean volume measurement 13.5 [foz_us] 7.4-10.4 Automated blood neutrophils/100 leukocytes 84 % 42-75 Automated blood lymphocytes/100 leukocytes 8 % 12-44 Blood monocytes/100 leukocytes 4 % 0-12 Automated blood eosinophils/100 leukocytes 4 % 0-10 Automated blood basophils/100 leukocytes 0 % 0-10 Blood neutrophils automated count (number/volume) 20.3 10*3 1.8-7.8 Blood lymphocytes automated count (number/volume) 2.0 10*3 1.0-4.0 Blood monocytes automated count (number/volume) 1. 0 10*3 0.0-1.0 Automated eosinophil count 1.0 10*3/uL 0 .0-0.3 Automated blood basophil count (count/volume) 0.0 10*3/uL 0.0-0.1 Comprehensive metabolic panel - 07/06/19 04:03 Serum or plasma sodium measurement (moles/volume) 139 mmol/L 135-145 Serum or plasma potassium measurement (moles/volume) 4.3 mmol/L 3.6-5.0 Serum or plasma chloride measurement (moles/volume) 105 mmol/L 98-107 Carbon dioxide 23 mmol/L 21-32 Serum or plasma anion gap determination (moles/volume) 11 mmol/L 5-14 Serum or plasma urea nitrogen measurement (mass/volume ) 7 mg/dL 7-18 Serum or plasma creatinine measurement (mass/volume) 0.66 mg/dL 0.60-1.30 Serum or plasma urea nitrogen/creatinine mass ratio 11 NRG Serum or plasma creatinine measurement w ith calculation of estimated glomerular filtration rate > NRG Serum or plasma glucose measurement (mass/volume) 163 mg/dL 70-105 Serum or plasma calcium measurement (mass/volume) 7.9 mg/dL 8.5-10.1 Serum or plasma total bilirubin measurement (mass/volu me) 0.4 mg/dL 0.1-1.0 Serum or plasma alkaline phosphatase dorian surement (enzymatic activity/volume) 85 U/L 40-136 Serum or plasma aspartate aminotransfera se measurement (enzymatic activity/volume) 13 U/L 5-34 Serum or plasma alanine aminotransferase measurement (enzymatic activity/volume) 11 U/L 0-55 Serum or plasma protein measurement (mass/volume) 6.0 g/dL 6.4-8.2 Serum or plasma albumin measurement (mass/volume) 3.1 g/dL 3.2-4.5 CALCIUM CORRECTED 8.6 mg/dL 8.5-10.1 Capillary blood glucose measurement by g lucometer (mass/volume) - 07/06/19 05:21 Capillary blood glucose measurement by glucometer (mas s/volume) 156 mg/dL 70-110 Comprehensive metabolic panel - 07/08/19 15:10 Serum or plasma sodium measurement (moles/volume) 141 mmol/L 135-145 Serum or plasma potassium measurement (moles/volume) 3.8 mmol/L 3.6-5.0 Serum or plasma chloride measurement (moles/volume) 103 mmol/L 98-107 Carbon dioxide 28 mmol/L 21-32 Serum or plasma anion gap determination (moles/volume) 10 mmol/L 5-14 Serum or plasma urea nitrogen measurement (mass/volume ) 16 mg/dL 7-18 Serum or plasma creatinine measurement (mass/volume) 0.74 mg/dL 0.60-1.30 Serum or plasma urea nitrogen/creatinine mass ratio 22 NRG Serum or plasma creatinine measurement w ith calculation of estimated glomerular filtration rate > NRG Serum or plasma glucose measurement (mass/volume) 114 mg/dL 70-105 Serum or plasma calcium measurement (mass/volume) 8.2 mg/dL 8.5-10.1 Serum or plasma total bilirubin measurement (mass/volu me) 0.3 mg/dL 0.1-1.0 Serum or plasma alkaline phosphatase dorian surement (enzymatic activity/volume) 80 U/L 40-136 Serum or plasma aspartate aminotransfera se measurement (enzymatic activity/volume) 11 U/L 5-34 Serum or plasma alanine aminotransferase measurement (enzymatic activity/volume) 11 U/L 0-55 Serum or plasma protein measurement (mass/volume) 6.5 g/dL 6.4-8.2 Serum or plasma albumin measurement (mass/volume) 3.6 g/dL 3.2-4.5 CALCIUM CORRECTED 8.5 mg/dL 8.5-10.1 Complete blood count (CBC) with automate d white blood cell (WBC) differential - 07/08/19 15:10 Blood leukocytes automated count (number/volume) 44.4 10*3/uL 4.3-11.0 Blood erythrocytes automated count (number/volume) 4.23 10*6/uL 4.35-5.85 Venous blood hemoglobin measurement (mass/volume) 12.8 g/dL 11.5-16.0 Blood hematocrit (volume fraction) 40 % 35-52 Automated erythrocyte mean corpuscular volume 94 [ foz_us] 80-99 Automated erythrocyte mean corpuscular h emoglobin (mass per erythrocyte) 30 pg 25-34 Automated erythrocyte mean corpuscular h emoglobin concentration measurement (mass/volume) 32 g/dL 32-36 Automated erythrocyte distribution width ratio 15. 4 % 10.0- 14.5 Automated blood platelet count (count/volume) 241 10*3/uL 130-400 Automated blood platelet mean volume measurement 13.1 [foz_us] 7.4-10.4 Automated blood neutrophils/100 leukocytes TNP [...] Automated blood basophil count (count/volume) TNP 0.0-0.1 Encounters ACCT No. Visit Date/Time Discharge Status Pt. Type Provider Facility Loc./Unit Complaint [id number] 07/05/2019 16:00:00 11:20:00 DIS Inpatient MANNY CANELA MD [facility] 4TH CELLULITIS R FOOT AND ANKLE,LEUKOCYTOSIS,MET LUNG [id number] 07/03/2019 12:08:00 23:59:59 CLS Outpatient JOSE REBOLLEDO MD, [facility] RAD LUNG CANCER [id number] 07/02/2019 13:39:00 23:59:59 CLS Outpatient JOSE REBOLLEDO MD, [facility] ONC [id number] 07/01/2019 11:20:00 14:41:00 DIS Inpatient MANNY CANELA MD [facility] 4TH INTRACTABLE PAIN L HIP, LEUKOCYTOSIS
[2019-07-09] MEDS ORDERED: CATHETER FLUSH 10 ML SYR IV PRN (10:15)
[2019-07-09] MEDS ORDERED: LACTATED RINGERS 1,000 ML IV PRN (10:20)
[2019-07-09] MEDS ORDERED: HEParin (CENTRAL IV FLUSH) 500 UNIT/5 ML SYR ONE (10:43)
[2019-07-09] MEDS ORDERED: BUP/EPI 0.5% 1:200,000 (SENSORCAINE) 30 ML VIAL ONE (10:44)
[2019-07-09] MEDS ORDERED: 0.9% SODIUM CHLORIDE PF INJ 20 ML VIAL ONE (10:44)
--- NOTE | 2019-07-09 10:50 | Progress Note-Pre Operative ---
Pre-Operative Progress Note H&P Reviewed The H&P was reviewed, patient examined and no changes noted. Date Seen by Provider: Jul 09, 2019 Time Seen by Provider: 10:50 Date H&P Reviewed: Jul 09, 2019 Time H&P Reviewed: 10:50 Pre-Operative Diagnosis: metastatic lung cancer NORAH CANCHOLA DO Jul 09, 2019 10:50
--- NOTE | 2019-07-09 11:46 | Progress Note-Post Operative ---
Post-Operative Progess Note Surgeon (s)/Equip Maint Eng (s) Surgeon NORAH CANCHOLA DO Equip Maint Eng: NA Pre-Operative Diagnosis metastatic lung cancer Post-Operative Diagnosis SAME Procedure & Operative Findings Date of Procedure 07/09/19 Procedure Performed/Findings PROCEDURE: Right internal jugular port placement using ultrasound guidance. COMPLICATIONS: None. INDICATIONS: The patient is a 73 year old female with metastatic lung cancer. Patient understands the risks and benefits of port placement and wished to proceed with the procedure. Consent was signed on the chart. PROCEDURE: The patient was taken to the operating suite, was prepped and draped in the sterile fashion. A surgical pause was performed. Ultrasound was used to locate the internal jugular vein. Once located anesthetic was infiltrated above it. Using micro-access kit, the right internal vein was accessed. Dark nonpulsatile blood was withdrawn. The wire was inserted. Fluoroscopy assured proper placement. The needle was removed. The micro-access dilator was advanced over the wire and the wire was removed. The regular wire was inserted and fluoroscopy assured proper placement. The wire was then secured. Local anesthetic was used to anesthetize from the neck for tunneling down to the right chest and for pocket creation. A 11 blade scalpel was used to make an incision over the right chest. Cautery was used to dissect down to the pectoral fascia. A pocket was created with blunt dissection. The dilator sheath was then advanced over the wire under fluoroscopy and the dilator and wire were removed. The Groshong catheter was inserted through the sheath and the sheath was then removed. The Groshong wire was removed. The catheter was then tunneled to the right chest pocket. Fluoroscopy was used to cut to length and this was then attached to the port which was then placed within the pocket. The port was then accessed without difficulty. It was then flushed with saline and then heparin. The subcutaneous tissues were then reapproximated using 3-0 Vicryl. The areas were then washed and dried. Skin Affix was placed over incision. The insertion point of the neck Skin Affix was placed over the incision. The patient tolerated the procedure well without complication and was taken to recovery room in stable condition. Chest x-ray is pending. Anesthesia Type general lma Estimated Blood Loss Estimated blood loss (mL): min Specimens/Packing Specimens Removed NORAH Reddy DO Jul 09, 2019 11:46
--- NOTE | 2019-07-09 11:51 | Discharge Inst-Simple/Standard ---
Discharge Inst-Standard Patient Instructions/Follow Up Plan of Care/Instructions/FU: 2 weeks Nidhi Activity as Tolerated: No Discharge Diet: Regular Diet Other Inst to Patient Follow up Appt: Make appointment for 2 week. Instructions: No lifting greater than 10 pounds. No strenuous activity. May shower in 24 hours, no tub bath or soaking. Use incentive spirometer at home as directed. No Smoking Skin/Wound Care: You have special glue over your incision that will fall off on it's own. Your port has been left accessed, the cancer center will help you manage it short term. Ice pack on 15 min and off 30 min and repeat to help with discomfort and swelling. Symptoms to Report: Appetite Changes, Extremity Discoloration, Numbness/Tingling, Swelling Increased, Bleeding Excessive, Eyesight Changes, Pain Increased, Urine Color Ch david, Constipation(Persistent), Fever over 101 degree F, Pain/Pressure in chest, Urinating Difficulty, Cough Up/Vomit Blood, Heart Beat Irreg/Pounding, Pain/Pressure in jaw, Vaginal Bleeding Increase, Cramps in feet or legs, Lightheadedness, Pain/Pressure in shoulder, Diarrhea(Persistent), Memory Changes Suddenly, Questions/Concerns, Weight gain consecutive days, Dizziness/Fainting, Nausea/Vomiting, Shortness of Breath, Weight gain over 2 pounds If questions or concerns contact your physician Or seek help at emergency department. NORAH CANCHOLA DO Jul 09, 2019 11:51
--- NOTE | 2019-07-09 11:56 | Anesthesia-General Post-Op ---
General Patient Condition Mental Status/LOC: Same as Preop Cardiovascular: Satisfactory Nausea/Vomiting: Absent Respiratory: Satisfactory Pain: Controlled Complications: Absent Post Op Complications Complications None Follow Up Care/Instructions Patient Instructions None needed. Anesthesia/Patient Condition Patient Condition Patient is doing well, no complaints, stable vital signs, no apparent adverse anesthesia problems. No complications reported per nursing. OCTAVIO VOGEL CRNA Jul 09, 2019 11:56
[2019-07-09] MEDS ORDERED: morphine INJ 10 MG/ML 1ML (SYR OR VIAL) IVP ONE (12:00)
[2019-07-09] MEDS ORDERED: MEPERIDINE (DEMEROL) INJ 50 MG/ML IVP ONE (12:00)
[2019-07-09] MEDS ORDERED: ONDANSETRON 4 MG/2 ML (SDV) Z0FRAN IVP PRN (12:00)
[2019-07-09] MEDS ORDERED: fentaNYL INJECTION 100 MCG/2 ML AMP IVP ONE (12:00)
--- NOTE | 2019-07-09 12:08 | Diagnostic Imaging Report ---
INDICATION: Recent chest wall port placement. EXAMINATION: AP view of the chest is obtained with comparison made to study of 07/01/2019. FINDINGS: There is mild cardiomegaly with air trapping bilaterally. There is improved aeration of left upper lobe with mild residual airspace disease in the left base. There is also blunting of left costophrenic sulcus. There has been placement of right anterior chest wall port with tip projecting over the lower superior vena cava. No pneumothorax is identified. IMPRESSION: Continued left basilar infiltrate with mild left pleural fluid and/or thickening. Otherwise, there is improved aeration of the left upper lobe without evidence of complication related to right anterior chest wall port placement. Dictated by: Dictated on workstation # [id number]
--- NOTE | 2019-07-09 12:36 | Diagnostic Imaging Report ---
Indication: Fluoroscopy during chest wall port placement. Fluoroscopy was provided in the OR during right-sided port placement. 28 seconds of fluoroscopic time was utilized. A single image was obtained. Image demonstrates a right-sided port with tip overlying the SVC. IMPRESSION: Fluoroscopy during port placement. Dictated by: Dictated on workstation # [id number]
== END 2019-07-09 13:35 | disposition home or self-care (01) ==
LOC: SDC 09:48
PROVIDERS: ATTEND Surgery
DX: C34.32 Malignant neoplasm of lower lobe, left bronchus or lung (principal); C78.7 Secondary malignant neoplasm of liver and intrahepatic bile duct; C79.51 Secondary malignant neoplasm of bone; M10.9 Gout, unspecified; M06.9 Rheumatoid arthritis, unspecified; M19.91 Primary osteoarthritis, unspecified site; F17.210 Nicotine dependence, cigarettes, uncomplicated; Z88.2 Allergy status to sulfonamides; Z79.899 Other long term (current) drug therapy; Z11.2 Encounter for screening for other bacterial diseases; Z96.60 Presence of unspecified orthopedic joint implant
CPT/HCPCS: 71045; 87081

== ENCOUNTER → 2019-07-09 | Outpatient (CLI) | payer MEDICARE, OTHER ==
--- NOTE | 2019-07-09 15:19 | Diagnostic Imaging Report ---
CLINICAL INDICATION: Patient with right humerus pain. Patient has history of bone mets from lung cancer. EXAM: X-ray of the right humerus, 2 views. COMPARISON: None. FINDINGS: There is no acute fracture or dislocation. There is no gross lytic destructive process seen on this exam. There are moderate degenerative spurs involving the proximal humeral head/neck junction region and moderately hypertrophic spurs involving the right acromioclavicular region. There is spurring of the right glenoid region. There are spurs involving the elbow region. IMPRESSION: 1. There is no acute fracture or dislocation. 2. There is no bony destructive process seen on this exam. 3. Degenerative disease of the right shoulder and right elbow. Dictated by: Dictated on workstation # [id number]
== END ==
LOC: RAD 14:18
PROVIDERS: ATTEND Nurse Practitioner Family
DX: M19.011 Primary osteoarthritis, right shoulder (principal); M19.021 Primary osteoarthritis, right elbow; C79.51 Secondary malignant neoplasm of bone
CPT/HCPCS: 73060

== ENCOUNTER 2019-07-29 08:12 | Emergency (ER) | payer MEDICARE, OTHER ==
[~2019-07-29] VITALS: Ht 170.1 cm; Wt 72.7 kg
--- OUTSIDE RECORDS SUMMARY | 2019-07-29 08:17 | XMS REPORT | Continuity of Care Document ---
Author Organization Unknown Address Unknown Phone Unavailable Allergies Active Description Code Type Severity Reaction Onset Reported/Identified Relationship to Patient Clinical Status Yes Sulfa (Sulfonamide Antibiotics) [id number] Drug Allergy Mild HIVES, SWELLING 07/08/2019 Medications There is no data. Problems Date [...] 07/02/2019 MANNY CANELA MD, Ot Z79.899 OTHER PRESS TENDER (CURRENT) DRUG THERAPY 07/02/2019 MANNY CANELA MD, Ot Z88. 2 ALLERGY STATUS TO SULFONAMIDES STATUS 07/02/2019 MANNY CANELA MD Ot Z96.641 PRESENCE OF RIGHT ARTIFICIAL HIP JOINT 07/02/2019 MANNY CANELA MD, Ot C78. 7 [...] OBSTRUCTIVE PULMONARY DISEASE, U 07/02/2019 MANNY CANELA MD, Ot J90 PLEURAL EFFUSION, NOT ELSEWHERE CLASSIFI 07/02/2019 MANNY CANELA MD Ot M16. 12 UNILATERAL PRIMARY OSTEOARTHRITIS, LEFT 07/02/2019 MANNY CANELA MD Ot M19. 91 PRIMARY OSTEOARTHRITIS, UNSPECIFIED SITE 07/02/2019 MANNY CANELA MD Ot Z66 DO NOT RESUSCITATE 07/02/2019 MANNY CANELA MD Ot Z79.899 OTHER PRESS TENDER (CURRENT) DRUG THERAPY 07/02/2019 MANNY CANELA MD Ot Z88. 2 ALLERGY STATUS TO SULFONAMIDES STATUS 07/02/2019 MANNY CANELA MD Ot Z96.641 PRESENCE OF RIGHT ARTIFICIAL HIP JOINT 07/05/2019 JOSE REBOLLEDO MD Ot C78.7 SECONDARY MALIG NEOPLASM OF LIVER AND IN 07/05/2019 JOSE REBOLLEDO MD, Ot C79.51 SECONDARY MALIGNANT NEOPLASM OF BONE 07/05/2019 JOSE REBOLLEDO MD Ot C80.1 MALIGNANT (PRIMARY) NEOPLASM, UNSPECIFIE 07/05/2019 JOSE REBOLLEDO MD, Ot C78.7 SECONDARY MALIG NEOPLASM OF LIVER AND IN 07/05/2019 JOSE REBOLLEDO MD, Ot C79.51 SECONDARY MALIGNANT NEOPLASM OF BONE 07/05/2019 JOSE REBOLLEDO MD Ot C80.1 MALIGNANT (PRIMARY) NEOPLASM, UNSPECIFIE 07/05/2019 JOSE REBOLLEDO MD, Ot C78.7 SECONDARY MALIG NEOPLASM OF LIVER AND IN 07/05/2019 JOSE REBOLLEDO MD Ot C79.51 SECONDARY MALIGNANT NEOPLASM OF BONE 07/05/2019 JOSE REBOLLEDO MD Ot C80.1 MALIGNANT (PRIMARY) NEOPLASM, UNSPECIFIE 07/06/2019 MANNY CANELA MD Ot C34. 90 MALIGNANT NEOPLASM OF [facility] PART OF [facility] 07/06/2019 MANNY CANELA MD Ot C79. 51 SECONDARY MALIGNANT NEOPLASM OF BONE 07/06/2019 MANNY CANELA MD Ot E11. 9 TYPE 2 DIABETES MELLITUS WITHOUT COMPLIC 07/06/2019 MANNY CANELA MD Ot F17.210 NICOTINE DEPENDENCE, CIGARETTES, UNCOMPL 07/06/2019 MANNY CANELA MD Ot G89. 3 NEOPLASM RELATED PAIN (ACUTE) (CHRONIC) 07/06/2019 MANNY CANELA MD Ot J44. 9 CHRONIC OBSTRUCTIVE PULMONARY DISEASE, U 07/06/2019 MANNY CANELA MD Ot M10. 9 GOUT, UNSPECIFIED 07/06/2019 MANNY CANELA MD Ot R09. 02 HYPOXEMIA 07/06/2019 MANNY CANELA MD Ot Z79.899 OTHER PRESS TENDER (CURRENT) DRUG THERAPY 07/06/2019 MANNY CANELA MD Ot Z87. 19 PERSONAL HISTORY OF OTHER DISEASES OF TH 07/06/2019 MANNY CANELA MD Ot Z88. 2 ALLERGY STATUS TO SULFONAMIDES STATUS 07/06/2019 MANNY CANELA MD Ot Z96.643 PRESENCE OF ARTIFICIAL HIP JOINT, BILATE 07/06/2019 MANNY CANELA MD Ot C34. 90 MALIGNANT NEOPLASM OF [facility] PART OF [facility] 07/06/2019 MANNY CANELA MD Ot C79. 51 SECONDARY MALIGNANT NEOPLASM OF BONE 07/06/2019 MANNY CANELA MD Ot E11. 9 TYPE 2 DIABETES MELLITUS WITHOUT COMPLIC 07/06/2019 MANNY CANELA MD Ot F17.210 NICOTINE DEPENDENCE, CIGARETTES, UNCOMPL 07/06/2019 MANNY CANELA MD Ot G89. 3 NEOPLASM RELATED PAIN (ACUTE) (CHRONIC) 07/06/2019 MANNY CANELA MD Ot J44. 9 CHRONIC OBSTRUCTIVE PULMONARY DISEASE, U 07/06/2019 MANNY CANELA MD Ot M10. 9 GOUT, UNSPECIFIED 07/06/2019 MANNY CANELA MD Ot R09. 02 HYPOXEMIA 07/06/2019 MANNY CANELA MD Ot Z79.899 OTHER HALFWAY (CURRENT) DRUG THERAPY 07/06/2019 MANNY CANELA MD Ot Z87. 19 PERSONAL HISTORY OF OTHER DISEASES OF TH 07/06/2019 MANNY CANELA MD Ot Z88. 2 ALLERGY STATUS TO SULFONAMIDES STATUS 07/06/2019 MANNY CANELA MD Ot Z96.643 PRESENCE OF ARTIFICIAL HIP JOINT, BILATE 07/08/2019 JOSE REBOLLEDO MD Ot C78.7 SECONDARY MALIG NEOPLASM OF LIVER AND IN 07/08/2019 JOSE REBOLLEDO MD Ot C79.51 SECONDARY MALIGNANT NEOPLASM OF BONE 07/08/2019 JOSE REBOLLEDO MD Ot C80.1 MALIGNANT (PRIMARY) NEOPLASM, UNSPECIFIE 07/08/2019 JOSE REBOLLEDO MD Ot C78.7 SECONDARY MALIG NEOPLASM OF LIVER AND IN 07/08/2019 JOSE REBOLLEDO MD Ot C79.51 SECONDARY MALIGNANT NEOPLASM OF BONE 07/08/2019 JOSE REBOLLEDO MD Ot C80.1 MALIGNANT (PRIMARY) NEOPLASM, UNSPECIFIE 07/08/2019 JOSE REBOLLEDO MD Ot C78.7 SECONDARY MALIG NEOPLASM OF LIVER AND IN 07/08/2019 JOSE REBOLLEDO MD Ot C79.51 SECONDARY MALIGNANT NEOPLASM OF BONE 07/08/2019 JOSE REBOLLEDO MD Ot C80.1 MALIGNANT (PRIMARY) NEOPLASM, UNSPECIFIE 07/08/2019 JOSE REBOLLEDO MD Ot C78.7 SECONDARY MALIG NEOPLASM OF LIVER AND IN 07/08/2019 JOSE REBOLLEDO MD Ot C79.51 SECONDARY MALIGNANT NEOPLASM OF BONE 07/08/2019 JOSE REBOLLEDO MD Ot C80.1 MALIGNANT (PRIMARY) NEOPLASM, UNSPECIFIE 07/08/2019 NORAH CANCHOLA DO Ot Z01.818 ENCOUNTER FOR OTHER PREPROCEDURAL EXAMIN 07/08/2019 JOSE REBOLLEDO MD Ot C78.7 SECONDARY MALIG NEOPLASM OF LIVER AND IN 07/08/2019 JOSE REBOLLEDO MD Ot C79.51 SECONDARY MALIGNANT NEOPLASM OF BONE 07/08/2019 JOSE REBOLLEDO MD Ot C80.1 MALIGNANT (PRIMARY) NEOPLASM, UNSPECIFIE 07/09/2019 JOSE REBOLLEDO MD Ot C22.9 MALIG NEOPLASM OF LIVER, NOT SPECIFIED A 07/09/2019 JOSE REBOLLEDO MD Ot C34.90 MALIGNANT NEOPLASM OF [facility] PART OF [facility] 07/09/2019 JOSE REBOLLEDO MD Ot C78.7 SECONDARY MALIG NEOPLASM OF LIVER AND IN 07/09/2019 JOSE REBOLLEDO MD Ot C79.51 SECONDARY MALIGNANT NEOPLASM OF BONE 07/09/2019 JOSE REBOLLEDO MD Ot C80.1 MALIGNANT (PRIMARY) NEOPLASM, UNSPECIFIE 07/09/2019 JOSE REBOLLEDO MD Ot C22.9 MALIG NEOPLASM OF LIVER, NOT SPECIFIED A 07/09/2019 JOSE REBOLLEDO MD Ot C34.90 MALIGNANT NEOPLASM OF [facility] PART OF [facility] 07/09/2019 CANCHOLA DO, NORAH D Ot 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 7 SECONDARY MALIG NEOPLASM OF LIVER AND IN 07/09/2019 CANCHOLA DO NORAH D Ot C79. 51 SECONDARY MALIGNANT NEOPLASM OF BONE 07/09/2019 CANCHOLA DO, NORAH D Ot F17.210 NICOTINE DEPENDENCE, CIGARETTES, UNCOMPL 07/09/2019 CANCHOLA DO, NORAH D Ot M06. 9 RHEUMATOID ARTHRITIS, UNSPECIFIED 07/09/2019 CANCHOLA DO, NORAH D Ot M10. 9 GOUT, UNSPECIFIED 07/09/2019 CANCHOLA DO, NORAH D Ot M19. 91 PRIMARY OSTEOARTHRITIS, UNSPECIFIED SITE 07/09/2019 CANCHOLA DO, NORAH D Ot Z11. 2 ENCOUNTER FOR SCREENING FOR OTHER BACTER 07/09/2019 CANCHOLA DO NORAH D Ot Z79.899 OTHER HALFWAY (CURRENT) DRUG THERAPY 07/09/2019 CANCHOLA DO NORAH D Ot Z88. 2 ALLERGY STATUS TO SULFONAMIDES STATUS 07/09/2019 CANCHOLA DO, NORAH D Ot Z96. 60 PRESENCE OF UNSPECIFIED ORTHOPEDIC JOINT 07/09/2019 CANCHOLA DO, NORAH D Ot Z01.818 ENCOUNTER FOR OTHER PREPROCEDURAL EXAMIN 07/09/2019 JOSE REBOLLEDO MD Ot C78.7 SECONDARY MALIG NEOPLASM OF LIVER AND IN 07/09/2019 JOSE REBOLLEDO MD Ot C79.51 SECONDARY MALIGNANT NEOPLASM OF BONE 07/09/2019 JOSE REBOLLEDO MD Ot C80.1 MALIGNANT (PRIMARY) NEOPLASM, UNSPECIFIE 07/09/2019 JOSE REBOLLEDO MD Ot C22.9 MALIG NEOPLASM OF LIVER, NOT SPECIFIED A 07/09/2019 JOSE REBOLLEDO MD Ot C34.90 MALIGNANT NEOPLASM OF [facility] 07/10/2019 CANCHOLA DO, NORAH D Ot C34. 32 MALIGNANT NEOPLASM OF LOWER LOBE, LEFT B 07/10/2019 CANCHOLA DO NORAH D Ot C78. 7 SECONDARY MALIG NEOPLASM OF LIVER AND IN 07/10/2019 CANCHOLA DO, NORAH D Ot C79. 51 SECONDARY MALIGNANT NEOPLASM OF BONE 07/10/2019 CANCHOLA DO, NORAH D Ot F17.210 NICOTINE DEPENDENCE, CIGARETTES, UNCOMPL 07/10/2019 CANCHOLA DO, NORAH D Ot M06. 9 RHEUMATOID ARTHRITIS, UNSPECIFIED 07/10/2019 CANCHOLA DO, NORAH D Ot M10. 9 GOUT, UNSPECIFIED 07/10/2019 CANCHOLA DO, NORAH D Ot M19. 91 PRIMARY OSTEOARTHRITIS, UNSPECIFIED SITE 07/10/2019 [facility], NORAH D Ot Z11. 2 ENCOUNTER FOR SCREENING FOR OTHER BACTER 07/10/2019 [facility], NORAH D Ot Z79.899 OTHER HALFWAY (CURRENT) DRUG THERAPY 07/10/2019 [facility], NORAH D Ot Z88. 2 ALLERGY STATUS TO SULFONAMIDES STATUS 07/10/2019 [facility], NORHA D Ot Z96. 60 PRESENCE OF UNSPECIFIED ORTHOPEDIC JOINT 07/10/2019 LUAN MCCARTHY, AWAIS VAUGHNP Ot C79.51 SECONDARY MALIGNANT NEOPLASM OF BONE 07/10/2019 LUAN MCCARTHY, AWAIS Kramer HEALTH SERVICE COORDINATOR Ot M19.011 PRIMARY OSTEOARTHRITIS, RIGHT SHOULDER 07/10/2019 LUAN RN, AWAIS Kramer HEALTH SERVICE COORDINATOR Ot M19.021 PRIMARY OSTEOARTHRITIS, RIGHT ELBOW 07/12/2019 JOSE REBOLLEDO MD Ot C78.7 SECONDARY MALIG NEOPLASM OF LIVER AND IN 07/12/2019 JOSE REBOLLEDO MD Ot C79.51 SECONDARY MALIGNANT NEOPLASM OF BONE 07/12/2019 JOSE REBOLLEDO MD Ot C80.1 MALIGNANT (PRIMARY) NEOPLASM, UNSPECIFIE 07/12/2019 JOSE REBOLLEDO MD Ot C22.9 MALIG NEOPLASM OF LIVER, NOT SPECIFIED A 07/12/2019 JOSE REBOLLEDO MD Ot C34.90 MALIGNANT NEOPLASM OF [facility] 07/12/2019 LUAN MCCARTHY, AWAIS Kramer HEALTH SERVICE COORDINATOR Ot C79.51 SECONDARY MALIGNANT NEOPLASM OF BONE 07/12/2019 LUAN RN, AWAIS C HEALTH SERVICE COORDINATOR Ot M19.011 PRIMARY OSTEOARTHRITIS, RIGHT SHOULDER 07/12/2019 LUAN RN, AWAIS C HEALTH SERVICE COORDINATOR Ot M19.021 PRIMARY OSTEOARTHRITIS, RIGHT ELBOW 07/16/2019 JOSE REBOLLEDO MD Ot C78.7 SECONDARY MALIG NEOPLASM OF LIVER AND IN 07/16/2019 JOSE REBOLLEDO MD Ot C79.51 SECONDARY MALIGNANT NEOPLASM OF BONE 07/16/2019 JOSE REBOLLEDO MD Ot C80.1 MALIGNANT (PRIMARY) NEOPLASM, UNSPECIFIE 07/16/2019 JOSE REBOLLEDO MD Ot C22.9 MALIG NEOPLASM OF LIVER, NOT SPECIFIED A 07/16/2019 JOSE REBOLLEDO MD Ot C34.90 MALIGNANT NEOPLASM OF [place] PART OF [facility] 07/16/2019 LUAN MCCARTHY, AWAIS Kramer HEALTH SERVICE COORDINATOR Ot C79.51 SECONDARY MALIGNANT NEOPLASM OF BONE 07/16/2019 LUAN MCCARTHY, AWAIS C HEALTH SERVICE COORDINATOR Ot M19.011 PRIMARY OSTEOARTHRITIS, RIGHT SHOULDER 07/16/2019 LUAN RN, AWAIS C HEALTH SERVICE COORDINATOR Ot M19.021 PRIMARY OSTEOARTHRITIS, RIGHT ELBOW 07/18/2019 JOSE REBOLLEDO MD Ot C78.7 SECONDARY MALIG NEOPLASM OF LIVER AND IN 07/18/2019 JOSE REBOLLEDO MD Ot C79.51 SECONDARY MALIGNANT NEOPLASM OF BONE 07/18/2019 JOSE REBOLLEDO MD Ot C80.1 MALIGNANT (PRIMARY) NEOPLASM, UNSPECIFIE 07/18/2019 JOSE REBOLLEDO MD Ot C22.9 MALIG NEOPLASM OF LIVER, NOT SPECIFIED A 07/18/2019 JOSE REBOLLEDO MD Ot C34.90 MALIGNANT NEOPLASM OF [facility] PART OF [facility] 07/18/2019 LUAN RN, AWAIS C HEALTH SERVICE COORDINATOR Ot C79.51 SECONDARY MALIGNANT NEOPLASM OF BONE 07/18/2019 LUAN RN, AWAIS C HEALTH SERVICE COORDINATOR Ot M19.011 PRIMARY OSTEOARTHRITIS, RIGHT SHOULDER 07/18/2019 LUAN RN, AWAIS C HEALTH SERVICE COORDINATOR Ot M19.021 PRIMARY OSTEOARTHRITIS, RIGHT ELBOW 07/24/2019 JOSE REBOLLEDO MD Ot C22.9 MALIG NEOPLASM OF LIVER, NOT SPECIFIED A 07/24/2019 JOSE REBOLLEDO MD Ot C34.90 [facility]IGNANT [facility]LASM OF [facility] Procedures There is no data. Results Test [...] culture - 07/05/19 15:10 Bacterial urine culture [id number] NRG COLONY COUNT >100,000/ML NRG SUSCEPTIBILITY NO FURTHER TESTING NRG RAPID ID PRELIM RAPID ID TEST AT [facility] 07/05 11:00 NRG Blood lactic acid [...] Automated blood basophil count (count/volume) TNP 0.0-0.1 Methicillin resistant Staphylococcus aur eus (MRSA) screening culture - 07/09/19 10:12 Methicillin resistant Staphylococcus aureus (MRSA) scr eening culture NEG NRG Encounters ACCT No. Visit Date/Time Discharge Status Pt. Type Provider Facility Loc./Unit Complaint [id number] 07/18/2019 09:16:00 23:59:59 CLS Outpatient KESHA QUEVEDO, JOSE melchor [facility] ONC [id number] 07/09/2019 14:18:00 23:59:59 CLS Outpatient LUAN MCCARTHY, AWAIS VERA [facility] RAD [id number] 07/09/2019 09:48:00 13:35:00 DIS Outpatient NORAH CANCHOLA DO [facility] SDC METASTATIC LUNG CA [id number] 07/08/2019 15:28:00 15:46:00 DIS Outpatient NORAH CANCHOLA DO [facility] PREOP U/S GUIDED PORT PLACEME NT ON RIGHT [id number] 07/05/2019 16:00:00 11:20:00 DIS Outpatient MANNY CANELA MD [facility] 4TH CELLULITIS R FOOT AND ANKLE,LEUKOCYTOSIS,MET LUNG [id number] 07/03/2019 12:08:00 23:59:59 CLS Outpatient JOSE REBOLLEDO MD [facility] RAD LUNG CANCER [id number] 07/01/2019 11:20:00 14:41:00 DIS Outpatient MANNY CANELA MD [facility] 4TH INTRACTABLE PAIN L HIP, LEUKOCYTOSIS
--- NOTE | 2019-07-29 08:22 | ED Abdominal Pain ---
General Stated Complaint: ABD PAIN Source of Information: Patient History of Present Illness Date Seen by Provider: Jul 29, 2019 Time Seen by Provider: 08:19 Initial Comments 73-year-old female presents with right-sided abdominal pain. Really she reports the pain has been going on for about 4 days ago seemingly worse yesterday. Patient has a known history of metastatic cancer. Patient denies any nausea vomiting. She reports her last bowel movement was yesterday. Patient reports she been using oxycodone for pain and it quit working last night. She denies any fevers chills. She does not have any cough. The pain does not get worse with breathing. She has no other systemic complaints. Allergies and Home Medications Allergies Coded Allergies: Sulfa (Sulfonamide Antibiotics) (Unverified Allergy, Mild, HIVES, SWELLING AND ITCHING, 07/08/19) Home Medications Acetaminophen 325 Mg Capsule, 975 MG PO TID Prescribed by: MANNY CANELA on 07/02/19 1031 Allopurinol 100 Mg Tablet, 100 MG PO DAILY Prescribed by: MANNY CANELA on 07/06/19 1243 Betamethasone/Propylene Glyc 15 Gm Cream..g., 1 APPLIC TOP DAILY PRN for RASH, (Reported) APPLY TO HANDS AND FEET Calcium Carbonate 400 Mg Tab.chew, 800 MG PO PRN PRN for INDIGESTION, (Reported) Cetirizine HCl 10 Mg Tablet, 10 MG PO DAILY PRN for ALLERGY SYMPTOMS, (Reported) Gabapentin 400 Mg Capsule, 400 MG PO TID, (Reported) Ibuprofen 200 Mg Tablet, 400 MG PO Q6H PRN for PAIN-MILD (1-4), (Reported) Oxycodone HCl 30 Mg Tab.er.12h, 30 MG PO BID Prescribed by: MANNY CANELA on 07/06/19 1023 Oxycodone HCl 10 Mg Tablet, 10 MG PO Q4H PRN for PAIN-SEVERE (8-10) Prescribed by: MANNY CANELA on 07/06/19 1023 Oxycodone HCl 40 Mg Tab.er.12h, 40 MG PO BID Prescribed by: MAINE KUMAR on 07/29/19 1210 Prednisone 10 Mg Tab.ds.pk, 10 MG PO DAILY Take 6 tabs(60mg)daily,decrease by 1 tab(10MG)daily. Prescribed by: MANNY CANELA on 07/06/19 1023 Patient Home Medication List Home Medication List Reviewed: Yes Review of Systems Review of Systems Constitutional: No chills, No fever Respiratory: Denies Cough, Denies Shortness of Air Gastrointestinal: Denies Abdomen Distended; Abdominal Pain; Denies Constipated, Denies Diarrhea, Denies Nausea, Denies Vomiting Genitourinary: No Symptoms Reported Musculoskeletal: no symptoms reported Skin: no symptoms reported Psychiatric/Neurological: No Symptoms Reported Past Jrcntkq-Mmqyfm-Fgjual Hx Past Med/Social Hx: Reviewed Nursing Past Med/Soc Hx Patient Social History Drug of Choice: THC Type Used: Cigarettes Former Smoker, Quit: Jul 09, 1979 2nd Hand Smoke Exposure: Yes Recent Foreign Travel: No Contact w/Someone Who Travel: No Recent Hopitalizations: No Immunizations Up To Date Date of Pneumonia Vaccine: Jun 30, 2014 Seasonal Allergies Seasonal Allergies: No Past Medical History Surgeries: Yes (colon resection) Abdominal, Appendectomy, Hysterectomy, Joint Replacement, Neurological, Orthopedic Respiratory: Yes (METASTATIC LUNG CANCER DX 05/2019; NOCTURNAL HYPOXIA-NEW DX. ) COPD Cardiac: Yes (HEART MURMUR ( WAS TOLD THAT 06/2019)) Neurological: Yes [employer] History: Hysterectomy, Menopausal Genitourinary: No Gastrointestinal: Yes Diverticulosis Musculoskeletal: Yes Degenerate Disk Disease, Arthritis, Rheumatoid Arthritis, Chronic Back Pain Endocrine: Yes Diabetes, Non-Insulin dep HEENT: No Cancer: Yes (METASTATIC LUNG CANCER--TO BONE, WIDESPREAD) Bone, Lung Did You Recieve Any Treatments: No Psychosocial: Yes (SINCE CA DX) Anxiety Integumentary: No Blood Disorders: No Family Medical History Neoplasm 19 FATHER (BLADDER CANCER) 19 MOTHER (OVARIAN CANCER) G8 BROTHER (COLON CANCER) G8 SISTER (BACK AND LUNG CANCER) PSH: - X 2 -HYSTERECTOMY/BSO FOR DUB -APPENDECTOMY -COLON RESECTION FOR DIVERTICULITIS -BACK SURGERY X 4 -BILATERAL KNEE SCOPES -RIGHT HIP REPLACEMENT DUE TO ARTHRITIS Physical Exam Vital Signs Vital Signs - First Documented 07/29/19 08:12 Temp 36.6 Pulse 79 Resp 18 B/P (MAP) 134/74 (94) Pulse Ox 97 O2 Delivery Room Air Capillary Refill : Height/Weight/BMI Height: '" Weight: lbs. oz. kg; 25.98 BMI Method: General Appearance: no apparent distress, thin Neck: full range of motion, supple Respiratory: chest non-tender, lungs clear, normal breath sounds Cardiovascular: normal peripheral pulses, regular rate, rhythm Gastrointestinal: soft, tenderness (RUq, epigastric ) Extremities: non-tender Back: normal inspection, no CVA tenderness Neurologic/Psychiatric: box toe buffer II-XII nml as tested, no motor/sensory deficits, alert, oriented x 3 Skin: normal color, warm/dry Progress/Results/Core Measures Results/Orders Lab Results Laboratory Tests Test 07/29/19 08:40 07/29/19 10:10 Range/Units White Blood Count 13.2 H 4.3-11.0 10^3/uL Red Blood Count 3.84 L 4.35-5.85 10^6/uL Hemoglobin 11.3 L 11.5-16.0 G/DL Hematocrit 36 35-52 % Mean Corpuscular Volume 94 80-99 FL Mean Corpuscular Hemoglobin 29 25-34 PG Mean Corpuscular Hemoglobin Concent 31 L 32-36 G/DL Red Cell Distribution Width 15.7 H 10.0-14.5 % Platelet Count 386 130-400 10^3/uL Mean Platelet Volume 12.2 H 7.4-10.4 FL Neutrophils (%) (Auto) 52 42-75 % Lymphocytes (%) (Auto) 16 12-44 % Monocytes (%) (Auto) 17 H 0-12 % Eosinophils (%) (Auto) 14 H 0-10 % Basophils (%) (Auto) 1 0-10 % Neutrophils # (Auto) 6.8 1.8-7.8 X 10^3 Lymphocytes # (Auto) 2.1 1.0-4.0 X 10^3 Monocytes # (Auto) 2.3 H 0.0-1.0 X 10^3 Eosinophils # (Auto) 1.8 H 0.0-0.3 10^3/uL Basophils # (Auto) 0.1 0.0-0.1 10^3/uL Neutrophils % (Manual) 55 % Lymphocytes % (Manual) 9 % Monocytes % (Manual) 9 % Eosinophils % (Manual) 16 % Basophils % (Manual) 1 % Band Neutrophils 10 % Anisocytosis SLIGHT Sodium Level 139 135-145 MMOL/L Potassium Level 3.4 L 3.6-5.0 MMOL/L Chloride Level 103 98-107 MMOL/L Carbon Dioxide Level 25 21-32 MMOL/L Anion Gap 11 5-14 MMOL/L Blood Urea Nitrogen 8 7-18 MG/DL Creatinine 0.63 0.60-1.30 MG/DL Estimat Glomerular Filtration Rate > 60 BUN/Creatinine Ratio 13 Glucose Level 96 70-105 MG/DL Calcium Level 8.2 L 8.5-10.1 MG/DL Corrected Calcium 8.8 8.5-10.1 MG/DL Total Bilirubin 0.3 0.1-1.0 MG/DL Aspartate Amino Transf (AST/SGOT) 13 5-34 U/L Alanine Aminotransferase (ALT/SGPT) 11 0-55 U/L Alkaline Phosphatase 132 40-136 U/L Total Protein 6.7 6.4-8.2 GM/DL Albumin 3.3 3.2-4.5 GM/DL Lipase < 4 L 8-78 U/L Urine Color YELLOW Urine Clarity CLEAR Urine pH 6.0 5-9 Urine Specific [place] <=1.005 1.016-1.022 Urine Protein NEGATIVE NEGATIVE Urine Glucose (UA) NEGATIVE NEGATIVE Urine Ketones NEGATIVE NEGATIVE Urine Nitrite NEGATIVE NEGATIVE Urine Bilirubin NEGATIVE NEGATIVE Urine Urobilinogen 0.2 < = 1.0 MG/DL Urine Leukocyte Esterase NEGATIVE NEGATIVE Urine RBC (Auto) NEGATIVE NEGATIVE Urine RBC NONE /HPF Urine WBC RARE /HPF Urine Squamous Epithelial Cells 0-2 /HPF Urine Crystals NONE /LPF Urine Bacteria NEGATIVE /HPF Urine Casts NONE /LPF Urine Mucus NEGATIVE /LPF Urine Culture Indicated NO My Orders Orders - MAINE KUMAR DO Acute Abd Series (07/29/19 08:22) Cbc With Automated Diff (07/29/19 08:22) Comprehensive Metabolic Panel (07/29/19 08:22) Lipase (07/29/19 08:22) Ua Culture If Indicated (07/29/19 08:22) Ketamine Syringe (Ed Only) (Ketamine Syr (07/29/19 08:30) Manual Differential (07/29/19 08:40) Ct Abdomen/Pelvis W (07/29/19 09:17) Iohexol Injection (Omnipaque 350 Mg/Ml 1 (07/29/19 09:30) Received Contrast (Hold Metformin- Contr (07/29/19 09:30) Ns (Ivpb) (Sodium Chloride 0.9% Ivpb Bag (07/29/19 09:30) Medications Given in ED Current Medications Medications Dose Ordered Sig/Cosme Route Start Time Stop Time Status Last Admin Dose Admin Iohexol 100 ml ONCE ONCE IV 07/29/19 09:30 07/29/19 09:31 DC 07/29/19 09:58 91 ML Ketamine HCl 15 mg ONCE ONCE IV 07/29/19 08:30 07/29/19 08:31 DC 07/29/19 08:40 15 MG Sodium Chloride 100 ml ONCE ONCE IV 07/29/19 09:30 07/29/19 09:31 DC 07/29/19 09:59 80 ML Vital Signs/I&O 07/29/19 07/29/19 08:12 09:16 Temp 36.6 Pulse 79 79 Resp 18 18 B/P (MAP) 134/74 (94) 115/69 (84) Pulse Ox 97 95 O2 Delivery Room Air Room Air Diagnostic Imaging Diagonstic Imaging: Xray, CT Comments [place], [place] NAME: VALENTIN DUNLAP [facility] REC#: [id number] PT STATUS: REG ER : 1945 PHYSICIAN: MAINE KUMAR DO ADMIT DATE: 07/29/19/ER Draft Date of Exam:07/29/19 ACUTE ABD SERIES INDICATION: Metastatic lung cancer. Now complaining of abdominal pain. COMPARISON: The chest radiograph is compared with the exam dated 07/01/2019. FINDINGS: There has been substantial improvement in size, density, and conspicuity of lateral left upper chest pleural-parenchymal opacity; however, there has been worsened expansion and atelectasis to the patient's left lower lobe. The small left effusion is stable if not decreased. The right chest is negative. The central catheter tip projects over the lower SVC. The bowel gas pattern is unremarkable. No air-fluid levels, pathological distention, pneumatosis, or free gas. No abnormal fecal loading. There are post surgical changes to the degenerated lumbar spine. The right hip has been replaced. The left hip is severely arthritic. An obliquely oriented lucency projects over the left femoral neck. When this is correlated with the abdominal/pelvic CT of 07/01/2019, this lucency likely accounts for bulky posterior osteophytosis off the acetabulum; however, if there is new left hip pain present, dedicated two-view left hip radiographs would be recommended. IMPRESSION: 1. Improvements in left upper chest pleural-parenchymal opacity but atelectasis in the left lower lobe has worsened. Similar left effusion. 2. Nonobstructive unremarkable abdominal/pelvic bowel gas pattern. 3. Left femoral neck lucency, likely superimposition of dorsal acetabular osteophytosis; however, correlate with any new left hip pain. If this is symptomatic, dedicated left hip radiographs would be recommended. NAME: VALENTIN DUNLAP [facility] REC#: [id number] PT STATUS: REG ER : 1945 PHYSICIAN: MAINE KUMAR DO ADMIT DATE: 07/29/19/ER Draft Date of Exam:07/29/19 CT ABDOMEN/PELVIS W PROCEDURE: CT abdomen and pelvis with contrast. TECHNIQUE: Multiple contiguous axial images were obtained through the abdomen and pelvis after administration of intravenous contrast. Auto Exposure Controls were utilized during the CT exam to meet ALARA standards for radiation dose reduction. INDICATION: Lung and liver cancer. COMPARISON: 07/01/2019. FINDINGS: There is persistent left basilar consolidation and loculated left pleural effusion. The mass-like density centrally is also again seen. The right lung base is relatively clear. The heart size is normal. There is a 4 cm low-density mass in the dome of the liver which appears slightly larger than on the prior examination. Several other smaller lesions are seen in the left lobe as well as in the dome of the right lobe of the liver. The larger more amorphous lesion along the lateral aspect of the right lobe of the liver has slightly increased in size as has the larger lesion in the caudal aspect of the right lobe of the liver. The gallbladder is unremarkable. There is no biliary ductal dilatation. The spleen is normal. The pancreas is unremarkable. The adrenal glands and kidneys are grossly unremarkable. There is atherosclerotic calcification of the aorta. The bowel gas pattern is nonspecific. There is no free air. The bladder is normal. There are post surgical changes of right hip arthroplasty. Note is again made of post surgical and degenerative changes in the spine. IMPRESSION: Persistent left basilar consolidation and mass with loculated pleural effusion. The larger lesions in the liver appear to have increased slightly in size. These remain compatible with metastatic disease. No other acute abnormality in the abdomen or pelvis. Departure Impression Primary Impression: Metastatic cancer Additional Impression: Abdominal pain Qualified Codes: R10.11 - Right upper quadrant pain Disposition: 01 HOME, SELF-CARE Condition: Stable Departure-Patient Inst. Referrals: SAGE VICTORIA MD (PCP/Family) Primary Care Physician Add. Discharge Instructions: Follow-up with oncology Emergency department focuses on treating and ruling out life-threatening diseases. Whenever possible, a diagnosis is given. However, most patients are given an impression based on their history, physical exam, and workup during your brief time in the ER. Information about probable diagnosis and other educational material has been provided. Please take the time to read and understand this information. It is very important that you follow up with a physician as discussed during the visit today. Failure to adhere to your follow-up instructions may lead to severe disability, injury, or so please make sure to keep your appointments or obtain one as requested. Please keep in mind the emergency department is not designed to your primary care or "family doctor" and nonurgent issues are best evaluated by an outpatient physician Scripts Oxycodone HCl (Oxycontin) 40 Mg Tab.er.12h 40 MG PO BID for 7 Days, #14 TAB Prov: MAINE KUMAR DO 07/29/19 MAINE KUMAR DO Jul 29, 2019 08:22
[2019-07-29] MEDS ORDERED: KETAMINE/NaCl 50 MG/5 ML SYRINGE (ED ONLY) IV ONE (08:30)
[2019-07-29 08:50] LABS: BASOPHILS # (AUTO) 0.1 10^3/uL (0.0-0.1); BASOPHILS % (AUTO) 1 % (0-10); EOSINOPHILS # (AUTO) 1.8 10^3/uL (0.0-0.3); EOSINOPHILS % (AUTO) 14 % (0-10); HEMATOCRIT 36 % (35-52); HEMOGLOBIN 11.3 G/DL (11.5-16.0); LYMPHOCYTES # (AUTO) 2.1 X 10^3 (1.0-4.0); LYMPHOCYTES % (AUTO) 16 % (12-44); MEAN CORPUSCULAR HEMOGLOBIN 29 PG (25-34); MEAN CORPUSCULAR HGB CONC 31 G/DL (32-36); MEAN CORPUSCULAR VOLUME 94 FL (80-99); MEAN PLATELET VOLUME 12.2 FL (7.4-10.4); MONOCYTES # (AUTO) 2.3 X 10^3 (0.0-1.0); MONOCYTES % (AUTO) 17 % (0-12); NEUTROPHILS # (AUTO) 6.8 X 10^3 (1.8-7.8); NEUTROPHILS % (AUTO) 52 % (42-75); PLATELET COUNT 386 10^3/uL (130-400); RED CELL DISTRIBUTION WIDTH 15.7 % (10.0-14.5); WHITE BLOOD COUNT 13.2 10^3/uL (4.3-11.0)
[2019-07-29 09:08] LABS: ALANINE AMINOTRANSFERASE 11 U/L (0-55); ALBUMIN 3.3 GM/DL (3.2-4.5); ALKALINE PHOSPHATASE 132 U/L (40-136); BILIRUBIN,TOTAL 0.3 MG/DL (0.1-1.0); BUN/CREATININE RATIO 13; CALCIUM 8.2 MG/DL (8.5-10.1); CARBON DIOXIDE 25 MMOL/L (21-32); CHLORIDE 103 MMOL/L (98-107); CREATININE SERUM 0.63 MG/DL (0.60-1.30); GFR ESTIMATED > 60; GLUCOSE 96 MG/DL (70-105); LIPASE < 4 U/L (8-78); POTASSIUM 3.4 MMOL/L (3.6-5.0); SODIUM 139 MMOL/L (135-145); TOTAL PROTEIN 6.7 GM/DL (6.4-8.2)
[2019-07-29 09:13] LABS: ANISOCYTOSIS SLIGHT; BAND NEUTROPHILS 10 %; BASOPHILS % (MANUAL) 1 %; EOSINOPHILS % (MANUAL) 16 %; LYMPHOCYTES % (MANUAL) 9 %; MONOCYTES % (MANUAL) 9 %; NEUTROPHILS % (MANUAL) 55 %
--- NOTE | 2019-07-29 09:13 | NUR ---
RETURN FROM X RAY REPORTS PAIN BETTER
[2019-07-29 09:16] VITALS: BP 115/69
--- NOTE | 2019-07-29 09:19 | Diagnostic Imaging Report ---
INDICATION: Metastatic lung cancer. Now complaining of abdominal pain. COMPARISON: The chest radiograph is compared with the exam dated 07/01/2019. FINDINGS: There has been substantial improvement in size, density, and conspicuity of lateral left upper chest pleural-parenchymal opacity; however, there has been worsened expansion and atelectasis to the patient's left lower lobe. The small left effusion is stable if not decreased. The right chest is negative. The central catheter tip projects over the lower SVC. The bowel gas pattern is unremarkable. No air-fluid levels, pathological distention, pneumatosis, or free gas. No abnormal fecal loading. There are post surgical changes to the degenerated lumbar spine. The right hip has been replaced. The left hip is severely arthritic. An obliquely oriented lucency projects over the left femoral neck. When this is correlated with the abdominal/pelvic CT of 07/01/2019, this lucency likely accounts for bulky posterior osteophytosis off the acetabulum; however, if there is new left hip pain present, dedicated two-view left hip radiographs would be recommended. IMPRESSION: 1. Improvements in left upper chest pleural-parenchymal opacity but atelectasis in the left lower lobe has worsened. Similar left effusion. 2. Nonobstructive unremarkable abdominal/pelvic bowel gas pattern. 3. Left femoral neck lucency, likely superimposition of dorsal acetabular osteophytosis; however, correlate with any new left hip pain. If this is symptomatic, dedicated left hip radiographs would be recommended. Dictated by: Dictated on workstation # [id number]
[2019-07-29] MEDS ORDERED: IOHEXOL 350 MG/ML 100 ML (OMNIPAQUE 350) VIAL IV ONE (09:30)
[2019-07-29] MEDS ORDERED: NS 100 ML (IVPB) BAG IV ONE (09:30)
[2019-07-29] MEDS ORDERED: HOLD METFORMIN - RECEIVED CONTRAST 20 ML VIAL IV SCH (09:30)
--- NOTE | 2019-07-29 09:45 | NUR ---
TO CT PER W/C
[2019-07-29 10:15] LABS: BILIRUBIN,URINE NEGATIVE (NEGATIVE); CLARITY,URINE CLEAR; COLOR,URINE YELLOW; GLUCOSE, URINE (UA) NEGATIVE (NEGATIVE); KETONES,URINE NEGATIVE (NEGATIVE); LEUKOCYTE ESTERASE ,URINE NEGATIVE (NEGATIVE); NITRITE,URINE NEGATIVE (NEGATIVE); PROTEIN,URINE NEGATIVE (NEGATIVE)
--- NOTE | 2019-07-29 10:19 | Diagnostic Imaging Report ---
PROCEDURE: CT abdomen and pelvis with contrast. TECHNIQUE: Multiple contiguous axial images were obtained through the abdomen and pelvis after administration of intravenous contrast. Auto Exposure Controls were utilized during the CT exam to meet ALARA standards for radiation dose reduction. INDICATION: Lung and liver cancer. COMPARISON: 07/01/2019. FINDINGS: There is persistent left basilar consolidation and loculated left pleural effusion. The mass-like density centrally is also again seen. The right lung base is relatively clear. The heart size is normal. There is a 4 cm low-density mass in the dome of the liver which appears slightly larger than on the prior examination. Several other smaller lesions are seen in the left lobe as well as in the dome of the right lobe of the liver. The larger more amorphous lesion along the lateral aspect of the right lobe of the liver has slightly increased in size as has the larger lesion in the caudal aspect of the right lobe of the liver. The gallbladder is unremarkable. There is no biliary ductal dilatation. The spleen is normal. The pancreas is unremarkable. The adrenal glands and kidneys are grossly unremarkable. There is atherosclerotic calcification of the aorta. The bowel gas pattern is nonspecific. There is no free air. The bladder is normal. There are post surgical changes of right hip arthroplasty. Note is again made of post surgical and degenerative changes in the spine. IMPRESSION: Persistent left basilar consolidation and mass with loculated pleural effusion. The larger lesions in the liver appear to have increased slightly in size. These remain compatible with metastatic disease. No other acute abnormality in the abdomen or pelvis. Dictated by: Dictated on workstation # [id number]
[2019-07-29 10:31] LABS: BACTERIA,URINE NEGATIVE /HPF; SQUAMOUS EPITHELIAL CELL,UR 0-2 /HPF; WBC,URINE RARE /HPF
--- NOTE | 2019-07-29 11:06 | NUR ---
CALLED CANCER WILL HAVE DR SANCHEZ CALL DR KUMAR AND TALK WITH HIM. Addendum: 07/29/19 at 1110 by PMCBRYANNA NOTIFIED PATIENT THAT WE WOULD WAIT ON DR REBOLLEDO TO CALL DR KUMAR BACK.
--- NOTE | 2019-07-29 11:53 | NUR ---
DR REBOLLEDO RETURNE CALL TO DR KUMAR
[2019-07-29] MEDS ORDERED: OXYC40TA46 PO (12:09)
[2019-07-29 12:11] VITALS: BP 132/77
--- NOTE | 2019-07-29 12:11 | NUR ---
PORT NEEDLE FLUSHED BEFORE REMOVAL.
== END 2019-07-29 12:21 | disposition home or self-care (01) ==
LOC: EDUNIT# 08:12 → ER 08:13
DX: C78.7 Secondary malignant neoplasm of liver and intrahepatic bile duct (principal); C79.51 Secondary malignant neoplasm of bone; C34.92 Malignant neoplasm of unspecified part of left bronchus or lung; J44.9 Chronic obstructive pulmonary disease, unspecified; R09.02 Hypoxemia; E11.9 Type 2 diabetes mellitus without complications; F41.9 Anxiety disorder, unspecified; R01.1 Cardiac murmur, unspecified; M06.9 Rheumatoid arthritis, unspecified; M19.91 Primary osteoarthritis, unspecified site; Z87.891 Personal history of nicotine dependence
CPT/HCPCS: 36415; 74022; 74177; 80053; 81000; 83690; 85007; 85027

== ENCOUNTER 2019-09-09 14:52 | Outpatient (RCR) | payer MEDICARE, OTHER ==
[2019-07-08 15:34] LABS: ALANINE AMINOTRANSFERASE 11 U/L (0-55); ALBUMIN 3.6 GM/DL (3.2-4.5); ALKALINE PHOSPHATASE 80 U/L (40-136); BILIRUBIN,TOTAL 0.3 MG/DL (0.1-1.0); BUN/CREATININE RATIO 22; CALCIUM 8.2 MG/DL (8.5-10.1); CARBON DIOXIDE 28 MMOL/L (21-32); CHLORIDE 103 MMOL/L (98-107); CREATININE SERUM 0.74 MG/DL (0.60-1.30); GFR ESTIMATED > 60; GLUCOSE 114 MG/DL (70-105); POTASSIUM 3.8 MMOL/L (3.6-5.0); SODIUM 141 MMOL/L (135-145); TOTAL PROTEIN 6.5 GM/DL (6.4-8.2)
[2019-07-08 15:42] LABS: HEMATOCRIT 40 % (35-52); HEMOGLOBIN 12.8 G/DL (11.5-16.0); MEAN CORPUSCULAR HEMOGLOBIN 30 PG (25-34); MEAN CORPUSCULAR HGB CONC 32 G/DL (32-36); MEAN CORPUSCULAR VOLUME 94 FL (80-99); MEAN PLATELET VOLUME 13.1 FL (7.4-10.4); PLATELET COUNT 241 10^3/uL (130-400); RED CELL DISTRIBUTION WIDTH 15.4 % (10.0-14.5)
[2019-07-08 15:55] LABS: WHITE BLOOD COUNT 44.4 10^3/uL (4.3-11.0)
--- NOTE | 2019-07-10 13:43 | Progress Note ---
Standard Progress Note Progress Notes/Assess & Plan Date Seen by a Provider: Jul 09, 2019 Time Seen by a Provider: 11:30 Progress/Assessment & Plan Late entry/addendum to anesthesia record. Procedure should read: Port Placement JOSEPH MIDDLETON CRNA Jul 10, 2019 13:43
[2019-07-17 09:47] LABS: BASOPHILS % (AUTO) 0 % (0-10); EOSINOPHILS # (AUTO) 3.4 10^3/uL (0.0-0.3); EOSINOPHILS % (AUTO) 30 % (0-10); HEMATOCRIT 37 % (35-52); HEMOGLOBIN 11.6 G/DL (11.5-16.0); LYMPHOCYTES # (AUTO) 1.1 X 10^3 (1.0-4.0); LYMPHOCYTES % (AUTO) 10 % (12-44); MEAN CORPUSCULAR HEMOGLOBIN 30 PG (25-34); MEAN CORPUSCULAR HGB CONC 32 G/DL (32-36); MEAN CORPUSCULAR VOLUME 93 FL (80-99); MEAN PLATELET VOLUME 13.2 FL (7.4-10.4); MONOCYTES # (AUTO) 0.7 X 10^3 (0.0-1.0); MONOCYTES % (AUTO) 6 % (0-12); NEUTROPHILS # (AUTO) 6.2 X 10^3 (1.8-7.8); NEUTROPHILS % (AUTO) 55 % (42-75); PLATELET COUNT 79 10^3/uL (130-400); RED CELL DISTRIBUTION WIDTH 15.2 % (10.0-14.5); WHITE BLOOD COUNT 11.4 10^3/uL (4.3-11.0)
[2019-07-17 10:02] LABS: ALANINE AMINOTRANSFERASE 39 U/L (0-55); ALBUMIN 3.4 GM/DL (3.2-4.5); ALKALINE PHOSPHATASE 79 U/L (40-136); BILIRUBIN,TOTAL 0.6 MG/DL (0.1-1.0); BUN/CREATININE RATIO 22; CALCIUM 8.3 MG/DL (8.5-10.1); CARBON DIOXIDE 28 MMOL/L (21-32); CHLORIDE 103 MMOL/L (98-107); CREATININE SERUM 0.63 MG/DL (0.60-1.30); GFR ESTIMATED > 60; GLUCOSE 98 MG/DL (70-105); MAGNESIUM 1.8 MG/DL (1.6-2.4); POTASSIUM 3.2 MMOL/L (3.6-5.0); SODIUM 142 MMOL/L (135-145); TOTAL PROTEIN 6.1 GM/DL (6.4-8.2)
[2019-07-24 15:28] LABS: BASOPHILS % (AUTO) 0 % (0-10); EOSINOPHILS # (AUTO) 2.4 10^3/uL (0.0-0.3); EOSINOPHILS % (AUTO) 21 % (0-10); HEMATOCRIT 32 % (35-52); HEMOGLOBIN 10.1 G/DL (11.5-16.0); LYMPHOCYTES # (AUTO) 1.8 X 10^3 (1.0-4.0); LYMPHOCYTES % (AUTO) 16 % (12-44); MEAN CORPUSCULAR HEMOGLOBIN 30 PG (25-34); MEAN CORPUSCULAR HGB CONC 31 G/DL (32-36); MEAN CORPUSCULAR VOLUME 94 FL (80-99); MEAN PLATELET VOLUME 12.7 FL (7.4-10.4); MONOCYTES # (AUTO) 1.4 X 10^3 (0.0-1.0); MONOCYTES % (AUTO) 12 % (0-12); NEUTROPHILS # (AUTO) 5.9 X 10^3 (1.8-7.8); NEUTROPHILS % (AUTO) 51 % (42-75); PLATELET COUNT 203 10^3/uL (130-400); RED CELL DISTRIBUTION WIDTH 15.7 % (10.0-14.5); WHITE BLOOD COUNT 11.6 10^3/uL (4.3-11.0)
[2019-07-24 15:36] LABS: ALBUMIN 3.3 GM/DL (3.2-4.5); CHLORIDE 101 MMOL/L (98-107); POTASSIUM 3.1 MMOL/L (3.6-5.0); SODIUM 140 MMOL/L (135-145)
[2019-07-24 15:37] LABS: CALCIUM 8.1 MG/DL (8.5-10.1)
[2019-07-24 15:38] LABS: GLUCOSE 143 MG/DL (70-105); TOTAL PROTEIN 6.3 GM/DL (6.4-8.2)
[2019-07-24 15:39] LABS: CARBON DIOXIDE 28 MMOL/L (21-32)
[2019-07-24 15:40] LABS: BILIRUBIN,TOTAL 0.5 MG/DL (0.1-1.0)
[2019-07-24 15:42] LABS: ALKALINE PHOSPHATASE 112 U/L (40-136); GFR ESTIMATED > 60
[2019-07-24 15:43] LABS: BUN/CREATININE RATIO 11
[2019-07-24 15:44] LABS: MAGNESIUM 2.1 MG/DL (1.6-2.4)
[2019-07-24 15:45] LABS: ALANINE AMINOTRANSFERASE 22 U/L (0-55)
[2019-07-31 14:46] LABS: BASOPHILS # (AUTO) 0.1 10^3/uL (0.0-0.1); BASOPHILS % (AUTO) 1 % (0-10); EOSINOPHILS # (AUTO) 1.2 10^3/uL (0.0-0.3); EOSINOPHILS % (AUTO) 6 % (0-10); HEMATOCRIT 34 % (35-52); HEMOGLOBIN 10.7 G/DL (11.5-16.0); LYMPHOCYTES # (AUTO) 2.4 X 10^3 (1.0-4.0); LYMPHOCYTES % (AUTO) 13 % (12-44); MEAN CORPUSCULAR HEMOGLOBIN 30 PG (25-34); MEAN CORPUSCULAR HGB CONC 32 G/DL (32-36); MEAN CORPUSCULAR VOLUME 94 FL (80-99); MEAN PLATELET VOLUME 12.1 FL (7.4-10.4); MONOCYTES # (AUTO) 2.5 X 10^3 (0.0-1.0); MONOCYTES % (AUTO) 13 % (0-12); NEUTROPHILS # (AUTO) 13.1 X 10^3 (1.8-7.8); NEUTROPHILS % (AUTO) 68 % (42-75); PLATELET COUNT 367 10^3/uL (130-400); RED CELL DISTRIBUTION WIDTH 15.8 % (10.0-14.5); WHITE BLOOD COUNT 19.4 10^3/uL (4.3-11.0)
[2019-07-31 15:09] LABS: ALANINE AMINOTRANSFERASE 13 U/L (0-55); ALBUMIN 3.3 GM/DL (3.2-4.5); ALKALINE PHOSPHATASE 134 U/L (40-136); BILIRUBIN,TOTAL 0.3 MG/DL (0.1-1.0); BUN/CREATININE RATIO 14; CALCIUM 8.7 MG/DL (8.5-10.1); CARBON DIOXIDE 29 MMOL/L (21-32); CHLORIDE 97 MMOL/L (98-107); CREATININE SERUM 0.77 MG/DL (0.60-1.30); GFR ESTIMATED > 60; GLUCOSE 113 MG/DL (70-105); MAGNESIUM 1.9 MG/DL (1.6-2.4); POTASSIUM 3.5 MMOL/L (3.6-5.0); SODIUM 136 MMOL/L (135-145); TOTAL PROTEIN 6.7 GM/DL (6.4-8.2)
[2019-08-11 16:12] LABS: BASOPHILS # (AUTO) 0.1 10^3/uL (0.0-0.1); BASOPHILS % (AUTO) 1 % (0-10); EOSINOPHILS # (AUTO) 1.2 10^3/uL (0.0-0.3); EOSINOPHILS % (AUTO) 15 % (0-10); HEMATOCRIT 31 % (35-52); HEMOGLOBIN 9.8 G/DL (11.5-16.0); LYMPHOCYTES # (AUTO) 1.5 X 10^3 (1.0-4.0); LYMPHOCYTES % (AUTO) 20 % (12-44); MEAN CORPUSCULAR HEMOGLOBIN 29 PG (25-34); MEAN CORPUSCULAR HGB CONC 31 G/DL (32-36); MEAN CORPUSCULAR VOLUME 94 FL (80-99); MEAN PLATELET VOLUME 13.4 FL (7.4-10.4); MONOCYTES # (AUTO) 0.3 X 10^3 (0.0-1.0); MONOCYTES % (AUTO) 4 % (0-12); NEUTROPHILS # (AUTO) 4.7 X 10^3 (1.8-7.8); NEUTROPHILS % (AUTO) 61 % (42-75); PLATELET COUNT 77 10^3/uL (130-400); RED CELL DISTRIBUTION WIDTH 15.4 % (10.0-14.5); WHITE BLOOD COUNT 7.8 10^3/uL (4.3-11.0)
[2019-08-11 16:13] LABS: BUN/CREATININE RATIO 20; CALCIUM 8.3 MG/DL (8.5-10.1); CARBON DIOXIDE 28 MMOL/L (21-32); CHLORIDE 99 MMOL/L (98-107); CREATININE SERUM 0.74 MG/DL (0.60-1.30); GFR ESTIMATED > 60; GLUCOSE 103 MG/DL (70-105); POTASSIUM 4.3 MMOL/L (3.6-5.0); SODIUM 137 MMOL/L (135-145)
[2019-08-22 16:04] LABS: BASOPHILS % (AUTO) 0 % (0-10); EOSINOPHILS # (AUTO) 0.3 10^3/uL (0.0-0.3); EOSINOPHILS % (AUTO) 4 % (0-10); HEMATOCRIT 26 % (35-52); HEMOGLOBIN 8.1 G/DL (11.5-16.0); LYMPHOCYTES % (AUTO) 26 % (12-44); MEAN CORPUSCULAR HEMOGLOBIN 29 PG (25-34); MEAN CORPUSCULAR HGB CONC 31 G/DL (32-36); MEAN CORPUSCULAR VOLUME 94 FL (80-99); MEAN PLATELET VOLUME 12.6 FL (7.4-10.4); MONOCYTES # (AUTO) 2.1 X 10^3 (0.0-1.0); MONOCYTES % (AUTO) 27 % (0-12); NEUTROPHILS # (AUTO) 3.3 X 10^3 (1.8-7.8); NEUTROPHILS % (AUTO) 43 % (42-75); PLATELET COUNT 248 10^3/uL (130-400); RED CELL DISTRIBUTION WIDTH 16.2 % (10.0-14.5); WHITE BLOOD COUNT 7.8 10^3/uL (4.3-11.0)
[2019-08-22 16:23] LABS: ALANINE AMINOTRANSFERASE 11 U/L (0-55); ALBUMIN 3.2 GM/DL (3.2-4.5); ALKALINE PHOSPHATASE 94 U/L (40-136); BILIRUBIN,TOTAL 0.3 MG/DL (0.1-1.0); BUN/CREATININE RATIO 16; CALCIUM 8.4 MG/DL (8.5-10.1); CARBON DIOXIDE 27 MMOL/L (21-32); CHLORIDE 98 MMOL/L (98-107); CREATININE SERUM 0.83 MG/DL (0.60-1.30); GFR ESTIMATED > 60; GLUCOSE 119 MG/DL (70-105); MAGNESIUM 2.2 MG/DL (1.6-2.4); POTASSIUM 4.2 MMOL/L (3.6-5.0); SODIUM 135 MMOL/L (135-145); TOTAL PROTEIN 6.7 GM/DL (6.4-8.2)
[2019-09-01 15:31] LABS: BASOPHILS % (AUTO) 1 % (0-10); EOSINOPHILS % (AUTO) 1 % (0-10); HEMATOCRIT 25 % (35-52); HEMOGLOBIN 7.9 G/DL (11.5-16.0); LYMPHOCYTES # (AUTO) 1.4 X 10^3 (1.0-4.0); LYMPHOCYTES % (AUTO) 34 % (12-44); MEAN CORPUSCULAR HEMOGLOBIN 29 PG (25-34); MEAN CORPUSCULAR HGB CONC 31 G/DL (32-36); MEAN CORPUSCULAR VOLUME 93 FL (80-99); MEAN PLATELET VOLUME 11.7 FL (7.4-10.4); MONOCYTES # (AUTO) 0.3 X 10^3 (0.0-1.0); MONOCYTES % (AUTO) 6 % (0-12); NEUTROPHILS # (AUTO) 2.5 X 10^3 (1.8-7.8); NEUTROPHILS % (AUTO) 59 % (42-75); PLATELET COUNT 120 10^3/uL (130-400); RED CELL DISTRIBUTION WIDTH 16.7 % (10.0-14.5); WHITE BLOOD COUNT 4.2 10^3/uL (4.3-11.0)
[2019-09-01 15:56] LABS: BUN/CREATININE RATIO 21; CALCIUM 8.3 MG/DL (8.5-10.1); CARBON DIOXIDE 24 MMOL/L (21-32); CHLORIDE 103 MMOL/L (98-107); CREATININE SERUM 0.73 MG/DL (0.60-1.30); GFR ESTIMATED > 60; GLUCOSE 85 MG/DL (70-105); POTASSIUM 4.3 MMOL/L (3.6-5.0); SODIUM 138 MMOL/L (135-145)
[~2019-09-09] VITALS: Ht 170.2 cm; Wt 72.6 kg
[~2019-09-09 14:52] MED LIST changes: +CYANOCOBALAMIN INJ 1000 MCG/ML (CANCER CENTER) ONE; +FOSAPREPITANT DIMEGLUMINE 150 MG in NS (IVPB) CANCER CENTER ONLY 150 ML IV SCH; +NS IV 1000 ML (CANCER CTR) IV SCH; +NS IV 500 ML (CANCER CENTER) 500 ML ONE; +OXYC40TA46 PO; +PALONOSETRON HCL 0.25 MG, DEXAMETHASONE INJECTION 10 MG in NS (IVPB) CANCER CENTER 50 ML IV SCH; +PEMBROLIZUMAB 200 MG in NS (IVPB) CANCER CENTER 50 ML IV SCH; +PEMETREXED DISODIUM 500 MG, PEMETREXED DISODIUM 400 MG in NS (IVPB) CANCER CENTER 100 ML IV SCH; +ZOLEDRONIC ACID (CANCER CTR) 4 MG in NS (IVPB) CANCER CENTER 100 ML IV SCH
[2019-09-09 15:11] LABS: BASOPHILS % (AUTO) 0 % (0-10); EOSINOPHILS # (AUTO) 0.1 10^3/uL (0.0-0.3); EOSINOPHILS % (AUTO) 2 % (0-10); HEMATOCRIT 23 % (35-52); HEMOGLOBIN 7.3 G/DL (11.5-16.0); LYMPHOCYTES # (AUTO) 1.4 X 10^3 (1.0-4.0); LYMPHOCYTES % (AUTO) 35 % (12-44); MEAN CORPUSCULAR HEMOGLOBIN 29 PG (25-34); MEAN CORPUSCULAR HGB CONC 31 G/DL (32-36); MEAN CORPUSCULAR VOLUME 94 FL (80-99); MEAN PLATELET VOLUME 12.8 FL (7.4-10.4); MONOCYTES # (AUTO) 0.7 X 10^3 (0.0-1.0); MONOCYTES % (AUTO) 17 % (0-12); NEUTROPHILS # (AUTO) 1.8 X 10^3 (1.8-7.8); NEUTROPHILS % (AUTO) 46 % (42-75); PLATELET COUNT 69 10^3/uL (130-400)
[2019-09-09 15:28] LABS: BUN/CREATININE RATIO 13; CALCIUM 8.3 MG/DL (8.5-10.1); CARBON DIOXIDE 24 MMOL/L (21-32); CHLORIDE 104 MMOL/L (98-107); CREATININE SERUM 0.71 MG/DL (0.60-1.30); GFR ESTIMATED > 60; GLUCOSE 97 MG/DL (70-105); POTASSIUM 4.3 MMOL/L (3.6-5.0); SODIUM 137 MMOL/L (135-145)
== END 2019-09-12 12:06 | disposition home or self-care (01) ==
LOC: ONC 14:52
PROVIDERS: ATTEND Internal Medicine Hematology & Oncology
DX: Z51.0 Encounter for antineoplastic radiation therapy (principal); Z51.11 Encounter for antineoplastic chemotherapy; C79.51 Secondary malignant neoplasm of bone; C80.1 Malignant (primary) neoplasm, unspecified; C78.7 Secondary malignant neoplasm of liver and intrahepatic bile duct
CPT/HCPCS: 77290; 77295; 77300; 77334; 77336; 77417; 77470; 80048; 80053; 83735; 84443; 85025; 96367; 96372; 96375; 96411; 96413; 96417; 99204; 99213; 99214

== ENCOUNTER → 2019-10-02 | Outpatient (CLI) | payer MEDICARE, OTHER ==
[~2019-10-02] MED LIST changes: +BARIUM SUSPENSION 2.1% (VANILLA SILQ) 450 ML PO ONE; -CYANOCOBALAMIN INJ 1000 MCG/ML (CANCER CENTER) ONE; -FOSAPREPITANT DIMEGLUMINE 150 MG in NS (IVPB) CANCER CENTER ONLY 150 ML IV SCH; +HOLD METFORMIN - RECEIVED CONTRAST 20 ML VIAL IV SCH; +IOHEXOL 350 MG/ML 100 ML (OMNIPAQUE 350) VIAL IV ONE; +NS 100 ML (IVPB) BAG IV ONE; -NS IV 1000 ML (CANCER CTR) IV SCH; -NS IV 500 ML (CANCER CENTER) 500 ML ONE; -PALONOSETRON HCL 0.25 MG, DEXAMETHASONE INJECTION 10 MG in NS (IVPB) CANCER CENTER 50 ML IV SCH; -PEMBROLIZUMAB 200 MG in NS (IVPB) CANCER CENTER 50 ML IV SCH; -PEMETREXED DISODIUM 500 MG, PEMETREXED DISODIUM 400 MG in NS (IVPB) CANCER CENTER 100 ML IV SCH; -ZOLEDRONIC ACID (CANCER CTR) 4 MG in NS (IVPB) CANCER CENTER 100 ML IV SCH
[2019-10-02] MEDS: CATHETER FLUSH 10 ML SYR IV PRN ×2 (12:06→12:36)
--- NOTE | 2019-10-02 13:46 | Diagnostic Imaging Report ---
PROCEDURE: CT chest with contrast, CT abdomen with and without contrast. TECHNIQUE: Precontrast acquisitions were acquired through the abdomen. Multiple contiguous axial images were obtained through the chest and abdomen after administration of intravenous contrast. Auto Exposure Controls were utilized during the CT exam to meet ALARA standards for radiation dose reduction. INDICATION: Lung carcinoma with metastases to bone. COMPARISON: No prior CT chest studies available for comparison. Comparison is made to prior CT abdomen study from 07/29/2019. FINDINGS: CT chest: A right chest wall port has tip within the lower SVC. No axillary lymphadenopathy is detected. No definite mediastinal or hilar lymphadenopathy is seen. There is no pericardial fluid. Consolidation versus mass in the posterior left lower lobe with associated loculated left basilar effusion appears similar to prior exam. No right-sided effusion is identified. Vague semisolid densities in the superior segment of right lower lobe are noted. Most laterally located density measures 7 mm. Just medial to this is a 12 mm density. There is also vague density in left upper lobe measuring 8 mm. Healed right lateral fourth rib fracture is noted. There is mixed lytic and sclerotic lesion involving the T6 vertebral body. There is also an area of sclerosis involving T8 vertebral body, suspicious for metastases. IMPRESSION: 1. Continued consolidation/mass in left lower lobe with associated left basilar loculated effusion. 2. No evidence of thoracic lymphadenopathy. 3. Ill-defined semi-solid densities in the right lower lobe and left upper lobe, indeterminate. Continued follow-up is recommended. 4. Osteoblastic thoracic vertebral body metastases. CT abdomen: There has been reduction in size of multiple hepatic metastases since prior CT. A mass near the dome of right lobe measures 2.0 cm AP compared with 4.2 cm on prior. A mass along the lateral aspect of the right lobe posteriorly measures 3.5 cm compared with 4.6 cm. Numerous additional lesions are smaller as well. Gallbladder is unremarkable. There is no biliary ductal dilatation. Pancreas and spleen are unremarkable. No adrenal mass is detected. Kidneys are unremarkable. Aorta is non-aneurysmal. There is no ascites. No central retroperitoneal or mesenteric lymphadenopathy is detected. There is spinal instrumentation with vertical stabilization rods and pedicle screws in the lower lumbosacral spine. There are numerous sclerotic lesions in the lumbar spine consistent with osteoblastic metastases. Sclerotic lesions in the iliac bones bilaterally are also noted. IMPRESSION: 1. Significant decrease in size of numerous hepatic metastases since prior CT two months earlier. 2. Numerous osteoblastic metastases have developed in the lumbar spine and bony pelvis since prior exam. Dictated by: Dictated on workstation # [id number]
--- NOTE | 2019-10-02 17:12 | Diagnostic Imaging Report ---
INDICATION: Lung cancer. TECHNIQUE: Whole body bone scan. 25.2 mCi of technetium 99m MDP was given intravenously. A whole body bone scan was obtained after a 3 hour delay. FINDINGS: There is increased activity in the proximal right humerus. There is increased activity in the right posterior 1st rib and right anterior lateral 5th rib. There is increased activity in the thoracic spine vertebral bodies at T6 and T8. There is increased activity at the left T11 pedicle and spinous process. There is increased activity at L5 vertebral body. There is increased activity in the superior aspect of the left sacral ala at the inferior aspect of the right sacrum. There is increased activity in the right lesser trochanter. There is increased activity in the medial aspect of the proximal right tibia and in the right 1st MTP joint. IMPRESSION: Multiple abnormal areas of increased uptake in the skeleton consistent with metastatic bone disease. Dictated by: Dictated on workstation # [id number]
== END ==
LOC: CARD 11:56
PROVIDERS: ATTEND Nurse Practitioner Adult Health
DX: C34.90 Malignant neoplasm of unspecified part of unspecified bronchus or lung (principal); C79.51 Secondary malignant neoplasm of bone; C78.7 Secondary malignant neoplasm of liver and intrahepatic bile duct
CPT/HCPCS: 71260; 74170; 78306; A9503

== ENCOUNTER 2019-12-08 13:34 | Outpatient (RCR) | payer MEDICARE, OTHER ==
[2019-09-15 13:14] LABS: BASOPHILS % (AUTO) 0 % (0-10); EOSINOPHILS % (AUTO) 0 % (0-10); HEMATOCRIT 27 % (35-52); HEMOGLOBIN 8.1 G/DL (11.5-16.0); LYMPHOCYTES % (AUTO) 16 % (12-44); MEAN CORPUSCULAR HEMOGLOBIN 29 PG (25-34); MEAN CORPUSCULAR HGB CONC 31 G/DL (32-36); MEAN CORPUSCULAR VOLUME 96 FL (80-99); MEAN PLATELET VOLUME 12.1 FL (7.4-10.4); MONOCYTES # (AUTO) 0.9 X 10^3 (0.0-1.0); MONOCYTES % (AUTO) 13 % (0-12); NEUTROPHILS # (AUTO) 4.7 X 10^3 (1.8-7.8); NEUTROPHILS % (AUTO) 71 % (42-75); PLATELET COUNT 245 10^3/uL (130-400); RED CELL DISTRIBUTION WIDTH 20.5 % (10.0-14.5); WHITE BLOOD COUNT 6.6 10^3/uL (4.3-11.0)
[2019-09-15 13:38] LABS: ALANINE AMINOTRANSFERASE 8 U/L (0-55); ALBUMIN 3.6 GM/DL (3.2-4.5); ALKALINE PHOSPHATASE 82 U/L (40-136); BILIRUBIN,TOTAL 0.2 MG/DL (0.1-1.0); BUN/CREATININE RATIO 15; CALCIUM 8.6 MG/DL (8.5-10.1); CARBON DIOXIDE 22 MMOL/L (21-32); CHLORIDE 106 MMOL/L (98-107); CREATININE SERUM 0.73 MG/DL (0.60-1.30); GFR ESTIMATED > 60; GLUCOSE 126 MG/DL (70-105); MAGNESIUM 2.3 MG/DL (1.6-2.4); POTASSIUM 4.3 MMOL/L (3.6-5.0); SODIUM 138 MMOL/L (135-145); TOTAL PROTEIN 7.1 GM/DL (6.4-8.2)
[2019-09-22 15:52] LABS: BASOPHILS % (AUTO) 1 % (0-10); EOSINOPHILS % (AUTO) 0 % (0-10); HEMATOCRIT 24 % (35-52); HEMOGLOBIN 7.5 G/DL (11.5-16.0); LYMPHOCYTES # (AUTO) 1.1 X 10^3 (1.0-4.0); LYMPHOCYTES % (AUTO) 42 % (12-44); MEAN CORPUSCULAR HEMOGLOBIN 30 PG (25-34); MEAN CORPUSCULAR HGB CONC 32 G/DL (32-36); MEAN CORPUSCULAR VOLUME 95 FL (80-99); MEAN PLATELET VOLUME 11.3 FL (7.4-10.4); MONOCYTES # (AUTO) 0.2 X 10^3 (0.0-1.0); MONOCYTES % (AUTO) 7 % (0-12); NEUTROPHILS # (AUTO) 1.4 X 10^3 (1.8-7.8); NEUTROPHILS % (AUTO) 50 % (42-75); PLATELET COUNT 117 10^3/uL (130-400); RED CELL DISTRIBUTION WIDTH 19.5 % (10.0-14.5); WHITE BLOOD COUNT 2.7 10^3/uL (4.3-11.0)
[2019-09-22 16:12] LABS: BUN/CREATININE RATIO 30; CALCIUM 8.7 MG/DL (8.5-10.1); CARBON DIOXIDE 27 MMOL/L (21-32); CHLORIDE 102 MMOL/L (98-107); CREATININE SERUM 0.83 MG/DL (0.60-1.30); GFR ESTIMATED > 60; GLUCOSE 114 MG/DL (70-105); POTASSIUM 5.1 MMOL/L (3.6-5.0); SODIUM 136 MMOL/L (135-145)
[2019-09-29 15:49] LABS: ABSOLUTE RETIC # 74 10e9/L (24-90); BASOPHILS % (AUTO) 0 % (0-10); EOSINOPHILS % (AUTO) 1 % (0-10); HEMATOCRIT 23 % (35-52); LYMPHOCYTES # (AUTO) 1.2 X 10^3 (1.0-4.0); LYMPHOCYTES % (AUTO) 36 % (12-44); MEAN CORPUSCULAR HEMOGLOBIN 30 PG (25-34); MEAN CORPUSCULAR HGB CONC 31 G/DL (32-36); MEAN CORPUSCULAR VOLUME 97 FL (80-99); MEAN PLATELET VOLUME 12.4 FL (7.4-10.4); MONOCYTES # (AUTO) 0.7 X 10^3 (0.0-1.0); MONOCYTES % (AUTO) 20 % (0-12); NEUTROPHILS # (AUTO) 1.5 X 10^3 (1.8-7.8); NEUTROPHILS % (AUTO) 43 % (42-75); PLATELET COUNT 54 10^3/uL (130-400); RED CELL DISTRIBUTION WIDTH 20.5 % (10.0-14.5); RETICULOCYTE % 3.21 % (0.50-2.40); WHITE BLOOD COUNT 3.4 10^3/uL (4.3-11.0)
[2019-09-29 15:51] LABS: HEMOGLOBIN 6.9 G/DL (11.5-16.0)
[2019-09-29 16:14] LABS: BUN/CREATININE RATIO 14; CALCIUM 8.5 MG/DL (8.5-10.1); CARBON DIOXIDE 22 MMOL/L (21-32); CHLORIDE 104 MMOL/L (98-107); CREATININE SERUM 0.79 MG/DL (0.60-1.30); GFR ESTIMATED > 60; GLUCOSE 108 MG/DL (70-105); SODIUM 138 MMOL/L (135-145)
[2019-10-06 10:15] LABS: BASOPHILS % (AUTO) 0 % (0-10); EOSINOPHILS % (AUTO) 0 % (0-10); HEMATOCRIT 31 % (35-52); HEMOGLOBIN 9.8 G/DL (11.5-16.0); LYMPHOCYTES # (AUTO) 0.9 X 10^3 (1.0-4.0); LYMPHOCYTES % (AUTO) 20 % (12-44); MEAN CORPUSCULAR HEMOGLOBIN 30 PG (25-34); MEAN CORPUSCULAR HGB CONC 32 G/DL (32-36); MEAN CORPUSCULAR VOLUME 96 FL (80-99); MONOCYTES # (AUTO) 0.4 X 10^3 (0.0-1.0); MONOCYTES % (AUTO) 8 % (0-12); NEUTROPHILS # (AUTO) 3.4 X 10^3 (1.8-7.8); NEUTROPHILS % (AUTO) 73 % (42-75); PLATELET COUNT 176 10^3/uL (130-400); RED CELL DISTRIBUTION WIDTH 20.8 % (10.0-14.5); WHITE BLOOD COUNT 4.7 10^3/uL (4.3-11.0)
[2019-10-06 10:39] LABS: ALANINE AMINOTRANSFERASE 8 U/L (0-55); ALBUMIN 3.9 GM/DL (3.2-4.5); ALKALINE PHOSPHATASE 63 U/L (40-136); BILIRUBIN,TOTAL 0.3 MG/DL (0.1-1.0); BUN/CREATININE RATIO 12; CALCIUM 9.3 MG/DL (8.5-10.1); CARBON DIOXIDE 21 MMOL/L (21-32); CHLORIDE 106 MMOL/L (98-107); CREATININE SERUM 0.81 MG/DL (0.60-1.30); GFR ESTIMATED > 60; GLUCOSE 209 MG/DL (70-105); MAGNESIUM 2.6 MG/DL (1.6-2.4); POTASSIUM 3.9 MMOL/L (3.6-5.0); SODIUM 139 MMOL/L (135-145); TOTAL PROTEIN 7.4 GM/DL (6.4-8.2)
[2019-10-27 11:23] LABS: BASOPHILS % (AUTO) 1 % (0-10); EOSINOPHILS # (AUTO) 0.2 10^3/uL (0.0-0.3); EOSINOPHILS % (AUTO) 3 % (0-10); HEMATOCRIT 33 % (35-52); HEMOGLOBIN 10.2 G/DL (11.5-16.0); LYMPHOCYTES # (AUTO) 1.5 X 10^3 (1.0-4.0); LYMPHOCYTES % (AUTO) 19 % (12-44); MEAN CORPUSCULAR HEMOGLOBIN 31 PG (25-34); MEAN CORPUSCULAR HGB CONC 31 G/DL (32-36); MEAN CORPUSCULAR VOLUME 98 FL (80-99); MEAN PLATELET VOLUME 11.9 FL (7.4-10.4); MONOCYTES % (AUTO) 12 % (0-12); NEUTROPHILS # (AUTO) 5.5 X 10^3 (1.8-7.8); NEUTROPHILS % (AUTO) 66 % (42-75); PLATELET COUNT 180 10^3/uL (130-400); WHITE BLOOD COUNT 8.3 10^3/uL (4.3-11.0)
[2019-10-27 11:48] LABS: ALANINE AMINOTRANSFERASE 7 U/L (0-55); ALBUMIN 3.7 GM/DL (3.2-4.5); ALKALINE PHOSPHATASE 50 U/L (40-136); BILIRUBIN,TOTAL 0.3 MG/DL (0.1-1.0); BUN/CREATININE RATIO 9; CALCIUM 8.8 MG/DL (8.5-10.1); CARBON DIOXIDE 20 MMOL/L (21-32); CHLORIDE 105 MMOL/L (98-107); CREATININE SERUM 0.86 MG/DL (0.60-1.30); GFR ESTIMATED > 60; GLUCOSE 97 MG/DL (70-105); POTASSIUM 4.2 MMOL/L (3.6-5.0); SODIUM 139 MMOL/L (135-145); TOTAL PROTEIN 6.9 GM/DL (6.4-8.2)
[2019-11-17 13:19] LABS: BASOPHILS % (AUTO) 0 % (0-10); EOSINOPHILS # (AUTO) 0.2 10^3/uL (0.0-0.3); EOSINOPHILS % (AUTO) 2 % (0-10); HEMATOCRIT 32 % (35-52); HEMOGLOBIN 10.2 G/DL (11.5-16.0); LYMPHOCYTES # (AUTO) 2.1 X 10^3 (1.0-4.0); LYMPHOCYTES % (AUTO) 25 % (12-44); MEAN CORPUSCULAR HEMOGLOBIN 30 PG (25-34); MEAN CORPUSCULAR HGB CONC 32 G/DL (32-36); MEAN CORPUSCULAR VOLUME 95 FL (80-99); MONOCYTES # (AUTO) 0.9 X 10^3 (0.0-1.0); MONOCYTES % (AUTO) 10 % (0-12); NEUTROPHILS # (AUTO) 5.1 X 10^3 (1.8-7.8); NEUTROPHILS % (AUTO) 62 % (42-75); PLATELET COUNT 217 10^3/uL (130-400); RED CELL DISTRIBUTION WIDTH 16.5 % (10.0-14.5); WHITE BLOOD COUNT 8.2 10^3/uL (4.3-11.0)
[2019-11-17 13:39] LABS: ALANINE AMINOTRANSFERASE < 6 U/L (0-55); ALBUMIN 3.7 GM/DL (3.2-4.5); ALKALINE PHOSPHATASE 40 U/L (40-136); BILIRUBIN,TOTAL 0.4 MG/DL (0.1-1.0); BUN/CREATININE RATIO 12; CALCIUM 9.1 MG/DL (8.5-10.1); CARBON DIOXIDE 20 MMOL/L (21-32); CHLORIDE 111 MMOL/L (98-107); CREATININE SERUM 0.85 MG/DL (0.60-1.30); GFR ESTIMATED > 60; GLUCOSE 103 MG/DL (70-105); POTASSIUM 3.8 MMOL/L (3.6-5.0); SODIUM 141 MMOL/L (135-145); TOTAL PROTEIN 6.9 GM/DL (6.4-8.2)
[~2019-12-08 13:34] MED LIST changes: -BARIUM SUSPENSION 2.1% (VANILLA SILQ) 450 ML PO ONE; +FOSAPREPITANT (CANCER CENTER) 150 MG in NS (IVPB) CANCER CENTER ONLY 150 ML IV SCH; -HOLD METFORMIN - RECEIVED CONTRAST 20 ML VIAL IV SCH; -IOHEXOL 350 MG/ML 100 ML (OMNIPAQUE 350) VIAL IV ONE; -NS 100 ML (IVPB) BAG IV ONE; +NS IV 1000 ML (CANCER CTR) IV SCH; +NS IV 500 ML (CANCER CENTER) 500 ML ONE; +PEMBROLIZUMAB 200 MG in NS (IVPB) CANCER CENTER 50 ML IV SCH; +PEMETREXED DISODIUM 500 MG, PEMETREXED DISODIUM 400 MG in NS (IVPB) CANCER CENTER 100 ML IV SCH; +PEMETREXED DISODIUM IV SCH; +ZOLEDRONIC ACID (CANCER CTR) 4 MG in NS (IVPB) CANCER CENTER 100 ML IV SCH; +[UNRECOGNIZED DRUG - OTHER] IV SCH
[2019-12-08 14:01] LABS: BASOPHILS % (AUTO) 0 % (0-10); EOSINOPHILS # (AUTO) 0.1 10^3/uL (0.0-0.3); EOSINOPHILS % (AUTO) 1 % (0-10); HEMATOCRIT 32 % (35-52); HEMOGLOBIN 10.2 G/DL (11.5-16.0); LYMPHOCYTES # (AUTO) 3.1 X 10^3 (1.0-4.0); LYMPHOCYTES % (AUTO) 34 % (12-44); MEAN CORPUSCULAR HEMOGLOBIN 31 PG (25-34); MEAN CORPUSCULAR HGB CONC 32 G/DL (32-36); MEAN CORPUSCULAR VOLUME 97 FL (80-99); MEAN PLATELET VOLUME 11.7 FL (7.4-10.4); MONOCYTES # (AUTO) 0.9 X 10^3 (0.0-1.0); MONOCYTES % (AUTO) 9 % (0-12); NEUTROPHILS % (AUTO) 55 % (42-75); PLATELET COUNT 179 10^3/uL (130-400); RED CELL DISTRIBUTION WIDTH 16.6 % (10.0-14.5); WHITE BLOOD COUNT 9.1 10^3/uL (4.3-11.0)
[2019-12-08 14:45] LABS: ALANINE AMINOTRANSFERASE 7 U/L (0-55); ALBUMIN 3.7 GM/DL (3.2-4.5); ALKALINE PHOSPHATASE 43 U/L (40-136); BILIRUBIN,TOTAL 0.3 MG/DL (0.1-1.0); BUN/CREATININE RATIO 17; CALCIUM 8.7 MG/DL (8.5-10.1); CARBON DIOXIDE 23 MMOL/L (21-32); CHLORIDE 107 MMOL/L (98-107); CREATININE SERUM 0.81 MG/DL (0.60-1.30); GFR ESTIMATED > 60; GLUCOSE 89 MG/DL (70-105); POTASSIUM 3.5 MMOL/L (3.6-5.0); SODIUM 141 MMOL/L (135-145); TOTAL PROTEIN 6.8 GM/DL (6.4-8.2)
== END 2019-12-14 | disposition home or self-care (01) ==
LOC: ONC 13:34
PROVIDERS: ATTEND Internal Medicine Hematology & Oncology
DX: Z51.11 Encounter for antineoplastic chemotherapy (principal); C79.51 Secondary malignant neoplasm of bone; C80.1 Malignant (primary) neoplasm, unspecified; C78.7 Secondary malignant neoplasm of liver and intrahepatic bile duct; Z79.899 Other long term (current) drug therapy
CPT/HCPCS: 80053; 82728; 83540; 83735; 84443; 85025; 96367; 96375; 96411; 96413; 96417; G0463; 36430; 36591; 80048; 82306; 85045; 86850; 86900; 86901; 86920

== ENCOUNTER → 2019-12-25 | Outpatient (CLI) | payer MEDICARE, OTHER ==
[~2019-12-25] MED LIST changes: +CATHETER FLUSH 10 ML SYR IV PRN; -FOSAPREPITANT (CANCER CENTER) 150 MG in NS (IVPB) CANCER CENTER ONLY 150 ML IV SCH; +HOLD METFORMIN - RECEIVED CONTRAST 20 ML VIAL IV SCH; +IOHEXOL 350 MG/ML 100 ML (OMNIPAQUE 350) VIAL IV ONE; +NS 100 ML (IVPB) BAG IV ONE; -NS IV 1000 ML (CANCER CTR) IV SCH; -NS IV 500 ML (CANCER CENTER) 500 ML ONE; -PEMBROLIZUMAB 200 MG in NS (IVPB) CANCER CENTER 50 ML IV SCH; -PEMETREXED DISODIUM 500 MG, PEMETREXED DISODIUM 400 MG in NS (IVPB) CANCER CENTER 100 ML IV SCH; -PEMETREXED DISODIUM IV SCH; -ZOLEDRONIC ACID (CANCER CTR) 4 MG in NS (IVPB) CANCER CENTER 100 ML IV SCH; -[UNRECOGNIZED DRUG - OTHER] IV SCH
[2019-12-25] MEDS: CATHETER FLUSH 10 ML SYR IV PRN ×2 (11:00→14:01)
--- NOTE | 2019-12-25 16:22 | Diagnostic Imaging Report ---
PROCEDURE: CT chest with contrast, CT abdomen with and without contrast. TECHNIQUE: Precontrast acquisitions were acquired through the abdomen. Multiple contiguous axial images were obtained through the chest and abdomen after administration of intravenous contrast. Auto Exposure Controls were utilized during the CT exam to meet ALARA standards for radiation dose reduction. INDICATION: Lung cancer, follow-up. COMPARISON: Comparison is made with prior CT from 10/02/2019. CT Chest: FINDINGS: A right chest wall port has the tip extending into the SVC. No axillary lymphadenopathy is detected. No mediastinal or hilar lymphadenopathy is detected. No pericardial fluid is identified. There is some continued left basilar pleural fluid; however, this is significantly reduced since the prior study from September. The area of consolidation/mass in the left lower lobe also appears reduced, now measuring approximately 4.6 x 2.2 cm compared with 5.7 x 3.6 cm. There is central low density present within this area. There is a somewhat linear region of nodularity just cephalad to this area of consolidation in the left lower lobe which is new measuring 2.3 x 0.9 cm. This is indeterminate. Vague semisolid density in the left upper lobe is stable at 7 mm. Vague semisolid nodular density in the right lower lobe near the major fissure measures 6 mm compared with 7 mm on prior. No new abnormality is detected. Previously noted osteoblastic lesions within the thoracic vertebrae are again noted. IMPRESSION: 1. Decrease in size of the area of consolidation/mass in the left lower lobe since study from 10/02/2019. There also has been some reduction in left-sided pleural fluid. 2. Stable semisolid densities in the left upper lobe and right lower lobe. No new abnormality is detected. CT Abdomen: FINDINGS: Low-density lesion near the dome of the right lobe is stable at 2.0 cm. A lesion along the periphery of the right lobe appears smaller at 2.3 cm compared with 3.5 cm. A rounded low-density lesion just anterior to this measures 1.3 cm compared with 1.6 cm. No new liver lesion is detected. Gallbladder is unremarkable. There is no biliary ductal dilatation. Pancreas and spleen are unremarkable. No adrenal mass is detected. Kidneys are unremarkable. Aorta is heavily calcified but nonaneurysmal. Bowel loops are normal caliber. There is no obstruction. There is no free fluid or fluid collection identified. No definite abdominal lymphadenopathy is identified. Postop changes of posterior instrumented fusion in the lower lumbar spine are again noted. There are areas of osteoblastic metastasis in the lumbar spine and bony pelvis, similar to prior exam. IMPRESSION: Continued reduction in size of multiple hepatic metastases when compared with prior study from 10/02/2019. No new lesion or evidence of abdominal lymphadenopathy is identified. Osteoblastic lesions persist. Dictated by: Dictated on workstation # [id number]
--- NOTE | 2019-12-25 16:41 | Diagnostic Imaging Report ---
INDICATION: Lung cancer with bone metastases. The patient was administered 25.5 mCi technetium 99m MDP intravenously and whole-body imaging was performed after a 3 hour delay. CORRELATION is made with prior whole body bone scan from 10/02/2019. Normal uptake of activity by the axilla and apical skeletons noted. There is uptake by the kidneys with excretion into the urinary bladder. 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 Uptake involving the right shoulder at the level of the proximal right humerus is again noted. There is a small focus of the proximal left humerus, unchanged. Activity involving the anterior right approximately 5th rib is again noted. There is uptake involving multiple thoracic vertebrae, slightly less intense however when compared with prior exam. The activity noted within the left and right sacrum is not as well-seen on today's study. Vague activity in the region of the lesser trochanter right hip is noted. IMPRESSION: There are multiple foci of uptake consistent with osteoblastic metastatic disease. Overall intensity appears to be slightly decreased particularly in the thoracic and lumbar spine as well as the sacrum when compared with prior study from 10/02/2019. Dictated by: Dictated on workstation # [id number]
== END ==
LOC: CARD 10:50
PROVIDERS: ATTEND Internal Medicine Hematology & Oncology
DX: C34.32 Malignant neoplasm of lower lobe, left bronchus or lung (principal); C79.51 Secondary malignant neoplasm of bone; C78.7 Secondary malignant neoplasm of liver and intrahepatic bile duct; Z95.828 Presence of other vascular implants and grafts; Z98.890 Other specified postprocedural states
CPT/HCPCS: 71260; 74170; 78306; A9503

== ENCOUNTER → 2020-03-15 | Outpatient (CLI) | payer MEDICARE, OTHER ==
[~2020-03-15] MED LIST changes: -CETI10TA21 PO; +CETI10TA49 PO
--- NOTE | 2020-03-15 15:07 | Diagnostic Imaging Report ---
CT CHEST W TECHNIQUE: Multiple contiguous axial images were obtained through the chest with the use of intravenous contrast. All CT scans use one or more of the following dose optimizing techniques: automated exposure control, MA and/or KvP adjustment based on a patient size and exam type, or iterative reconstruction. INDICATION: Secondary malignant neoplasm of the bone, lung cancer. COMPARISON: CT chest and abdomen of 12/25/2019. FINDINGS: Lungs and airway: No endoluminal nodule within the trachea. Bandlike nodule in the left lower lobe measuring 2.0 x 0.7 cm has decreased in size (previously 2.3 x 0.9 cm). Subpleural mass in the left lower lobe measures 3.2 x 1.9 cm (previously 4.5 x 2.2 cm). Scattered groundglass nodules in the left upper lobe are stable with the largest measuring 0.7 cm. Right lower lobe groundglass opacities are also stable. Pleura: Trace left pleural fluid is unchanged since prior exam. No right pleural effusion. No pneumothorax. Heart and mediastinum: Right IJ Port-A-Cath has tip terminating in the lower SVC. Thyroid is normal. No supraclavicular or axillary lymphadenopathy. No mediastinal, hilar or juxtaphrenic lymphadenopathy. Heart is normal in size without pericardial effusion. Normal caliber thoracic aorta. Upper abdomen: The multiple hypoenhancing masses throughout the liver are stable in size with a represent nodule at the hepatic dome measuring 1.8 cm (previously 1.8 cm when measured similarly). Musculoskeletal: A few scattered sclerotic metastases within the ribs are unchanged. Thoracic spine metastases are also unchanged. No pathologic compression fracture. IMPRESSION: 1. The dominant left lower lobe pulmonary mass continues to decrease in size. 2. No intrathoracic lymphadenopathy or suspicious pulmonary nodules have developed in the interim. 3. No change in the hepatic or skeletal metastases. Dictated by: Dictated on workstation # [id number]
--- NOTE | 2020-03-15 16:07 | Diagnostic Imaging Report ---
INDICATION: Secondary malignant neoplasm of bone. TECHNIQUE: Patient was administered 24.7 mCi technetium 99m MDP intravenously and whole body imaging was performed after a three-hour delay. COMPARISON: Correlation is made with prior whole body bone scan from 12/25/2019. FINDINGS: There is normal uptake of activity by the axial and appendicular skeleton. There is uptake by the kidneys with excretion into the urinary bladder. Uptake involving bilateral shoulders appears similar to prior exam. Uptake involving the anterior right approximately fifth rib appears stable. There are several foci involving the thoracic spine, less prominent on today's study. Pelvis and lower extremities appear unremarkable. IMPRESSION: Overall, fairly stable whole body bone scan when compared with exam from 12/25/2019. In particular, increased uptake involving bilateral proximal humeri and right fifth rib are similar and again likely owing to osteoblastic metastatic disease. Dictated by: Dictated on workstation # [id number]
== END ==
LOC: CARD 12:03
PROVIDERS: ATTEND Nurse Practitioner Adult Health
DX: C79.51 Secondary malignant neoplasm of bone (principal); R91.8 Other nonspecific abnormal finding of lung field
CPT/HCPCS: 71260; 78306; A9503

== ENCOUNTER 2020-03-22 14:20 | Outpatient (RCR) | payer MEDICARE, OTHER ==
[2019-12-29 13:29] LABS: BASOPHILS % (AUTO) 0 % (0-10); EOSINOPHILS # (AUTO) 0.2 10^3/uL (0.0-0.3); EOSINOPHILS % (AUTO) 3 % (0-10); HEMATOCRIT 36 % (35-52); HEMOGLOBIN 11.8 G/DL (11.5-16.0); LYMPHOCYTES # (AUTO) 2.2 X 10^3 (1.0-4.0); LYMPHOCYTES % (AUTO) 26 % (12-44); MEAN CORPUSCULAR HEMOGLOBIN 32 PG (25-34); MEAN CORPUSCULAR HGB CONC 32 G/DL (32-36); MEAN CORPUSCULAR VOLUME 97 FL (80-99); MEAN PLATELET VOLUME 11.5 FL (7.4-10.4); MONOCYTES # (AUTO) 0.9 X 10^3 (0.0-1.0); MONOCYTES % (AUTO) 10 % (0-12); NEUTROPHILS # (AUTO) 5.2 X 10^3 (1.8-7.8); NEUTROPHILS % (AUTO) 61 % (42-75); PLATELET COUNT 188 10^3/uL (130-400); WHITE BLOOD COUNT 8.5 10^3/uL (4.3-11.0)
[2019-12-29 13:47] LABS: ALBUMIN 3.7 GM/DL (3.2-4.5); BILIRUBIN,TOTAL 0.4 MG/DL (0.1-1.0); CALCIUM 8.6 MG/DL (8.5-10.1); CREATININE SERUM 1.31 MG/DL (0.60-1.30); POTASSIUM 3.9 MMOL/L (3.6-5.0); TOTAL PROTEIN 6.7 GM/DL (6.4-8.2)
[2020-01-19 13:22] LABS: BASOPHILS # (AUTO) 0.1 10^3/uL (0.0-0.1); BASOPHILS % (AUTO) 1 % (0-10); EOSINOPHILS # (AUTO) 0.2 10^3/uL (0.0-0.3); EOSINOPHILS % (AUTO) 2 % (0-10); HEMATOCRIT 37 % (35-52); HEMOGLOBIN 11.9 g/dL (11.5-16.0); LYMPHOCYTES # (AUTO) 2.4 10^3/uL (1.0-4.0); LYMPHOCYTES % (AUTO) 28 % (12-44); MEAN CORPUSCULAR HEMOGLOBIN 32 pg (25-34); MEAN CORPUSCULAR HGB CONC 32 g/dL (32-36); MEAN CORPUSCULAR VOLUME 98 fL (80-99); MEAN PLATELET VOLUME 11.5 fL (9.0-12.2); MONOCYTES # (AUTO) 0.7 10^3/uL (0.0-1.0); MONOCYTES % (AUTO) 8 % (0-12); NEUTROPHILS # (AUTO) 5.2 10^3/uL (1.8-7.8); NEUTROPHILS % (AUTO) 61 % (42-75); PLATELET COUNT 194 10^3/uL (130-400); WHITE BLOOD COUNT 8.6 10^3/uL (4.3-11.0)
[2020-01-19 13:38] LABS: ALANINE AMINOTRANSFERASE 8 U/L (0-55); ALBUMIN 3.7 GM/DL (3.2-4.5); ALKALINE PHOSPHATASE 48 U/L (40-136); BILIRUBIN,TOTAL 0.3 MG/DL (0.1-1.0); BUN/CREATININE RATIO 14; CALCIUM 8.5 MG/DL (8.5-10.1); CARBON DIOXIDE 24 MMOL/L (21-32); CHLORIDE 105 MMOL/L (98-107); GFR ESTIMATED > 60; GLUCOSE 107 MG/DL (70-105); POTASSIUM 3.9 MMOL/L (3.6-5.0); SODIUM 139 MMOL/L (135-145); TOTAL PROTEIN 6.5 GM/DL (6.4-8.2)
[2020-02-09 14:11] LABS: BASOPHILS % (AUTO) 0 % (0-10); EOSINOPHILS # (AUTO) 0.2 10^3/uL (0.0-0.3); EOSINOPHILS % (AUTO) 2 % (0-10); HEMATOCRIT 40 % (35-52); HEMOGLOBIN 12.9 g/dL (11.5-16.0); LYMPHOCYTES # (AUTO) 3.1 10^3/uL (1.0-4.0); LYMPHOCYTES % (AUTO) 33 % (12-44); MEAN CORPUSCULAR HEMOGLOBIN 32 pg (25-34); MEAN CORPUSCULAR HGB CONC 33 g/dL (32-36); MEAN CORPUSCULAR VOLUME 98 fL (80-99); MEAN PLATELET VOLUME 11.4 fL (9.0-12.2); MONOCYTES # (AUTO) 0.8 10^3/uL (0.0-1.0); MONOCYTES % (AUTO) 8 % (0-12); NEUTROPHILS # (AUTO) 5.3 10^3/uL (1.8-7.8); NEUTROPHILS % (AUTO) 57 % (42-75); PLATELET COUNT 201 10^3/uL (130-400); WHITE BLOOD COUNT 9.4 10^3/uL (4.3-11.0)
[2020-02-09 14:32] LABS: ALANINE AMINOTRANSFERASE < 6 U/L (0-55); ALKALINE PHOSPHATASE 42 U/L (40-136); BILIRUBIN,TOTAL 0.3 MG/DL (0.1-1.0); BUN/CREATININE RATIO 14; CALCIUM 9.7 MG/DL (8.5-10.1); CARBON DIOXIDE 26 MMOL/L (21-32); CHLORIDE 104 MMOL/L (98-107); CREATININE SERUM 0.74 MG/DL (0.60-1.30); GFR ESTIMATED > 60; GLUCOSE 93 MG/DL (70-105); POTASSIUM 3.9 MMOL/L (3.6-5.0); SODIUM 139 MMOL/L (135-145); TOTAL PROTEIN 7.1 GM/DL (6.4-8.2)
[2020-03-01 14:18] LABS: BASOPHILS % (AUTO) 0 % (0-10); EOSINOPHILS # (AUTO) 0.2 10^3/uL (0.0-0.3); EOSINOPHILS % (AUTO) 2 % (0-10); HEMATOCRIT 40 % (35-52); LYMPHOCYTES # (AUTO) 2.6 10^3/uL (1.0-4.0); LYMPHOCYTES % (AUTO) 26 % (12-44); MEAN CORPUSCULAR HEMOGLOBIN 32 pg (25-34); MEAN CORPUSCULAR HGB CONC 33 g/dL (32-36); MEAN CORPUSCULAR VOLUME 97 fL (80-99); MEAN PLATELET VOLUME 11.6 fL (9.0-12.2); MONOCYTES # (AUTO) 0.9 10^3/uL (0.0-1.0); MONOCYTES % (AUTO) 9 % (0-12); NEUTROPHILS # (AUTO) 6.4 10^3/uL (1.8-7.8); NEUTROPHILS % (AUTO) 63 % (42-75); PLATELET COUNT 192 10^3/uL (130-400); WHITE BLOOD COUNT 10.1 10^3/uL (4.3-11.0)
[2020-03-01 14:32] LABS: ALANINE AMINOTRANSFERASE 8 U/L (0-55); ALBUMIN 4.1 GM/DL (3.2-4.5); ALKALINE PHOSPHATASE 43 U/L (40-136); BILIRUBIN,TOTAL 0.3 MG/DL (0.1-1.0); BUN/CREATININE RATIO 15; CALCIUM 8.9 MG/DL (8.5-10.1); CARBON DIOXIDE 23 MMOL/L (21-32); CHLORIDE 103 MMOL/L (98-107); CREATININE SERUM 0.81 MG/DL (0.60-1.30); GFR ESTIMATED > 60; GLUCOSE 108 MG/DL (70-105); POTASSIUM 3.6 MMOL/L (3.6-5.0); SODIUM 139 MMOL/L (135-145); TOTAL PROTEIN 7.1 GM/DL (6.4-8.2)
[~2020-03-22 14:20] MED LIST changes: -CATHETER FLUSH 10 ML SYR IV PRN; -HOLD METFORMIN - RECEIVED CONTRAST 20 ML VIAL IV SCH; -IOHEXOL 350 MG/ML 100 ML (OMNIPAQUE 350) VIAL IV ONE; -NS 100 ML (IVPB) BAG IV ONE; +NS IV 1000 ML (CANCER CTR) IV SCH; +NS IV 500 ML (CANCER CENTER) 500 ML ONE; +NS IV SCH; +PEMBROLIZUMAB 200 MG in NS (IVPB) CANCER CENTER 50 ML IV SCH; +ZOLEDRONIC ACID (CANCER CTR) 4 MG in NS (IVPB) CANCER CENTER 100 ML IV SCH; +ZOLEDRONIC ACID IV SCH
[2020-03-22 14:42] LABS: BASOPHILS % (AUTO) 0 % (0-10); EOSINOPHILS # (AUTO) 0.2 10^3/uL (0.0-0.3); EOSINOPHILS % (AUTO) 3 % (0-10); HEMATOCRIT 41 % (35-52); HEMOGLOBIN 13.3 g/dL (11.5-16.0); LYMPHOCYTES # (AUTO) 2.4 10^3/uL (1.0-4.0); LYMPHOCYTES % (AUTO) 26 % (12-44); MEAN CORPUSCULAR HEMOGLOBIN 32 pg (25-34); MEAN CORPUSCULAR HGB CONC 32 g/dL (32-36); MEAN CORPUSCULAR VOLUME 100 fL (80-99); MEAN PLATELET VOLUME 11.3 fL (9.0-12.2); MONOCYTES # (AUTO) 0.8 10^3/uL (0.0-1.0); MONOCYTES % (AUTO) 8 % (0-12); NEUTROPHILS # (AUTO) 5.8 10^3/uL (1.8-7.8); NEUTROPHILS % (AUTO) 62 % (42-75); PLATELET COUNT 194 10^3/uL (130-400); WHITE BLOOD COUNT 9.4 10^3/uL (4.3-11.0)
[2020-03-22 15:04] LABS: ALANINE AMINOTRANSFERASE 8 U/L (0-55); ALBUMIN 3.9 GM/DL (3.2-4.5); ALKALINE PHOSPHATASE 53 U/L (40-136); BILIRUBIN,TOTAL 0.5 MG/DL (0.1-1.0); BUN/CREATININE RATIO 11; CALCIUM 8.7 MG/DL (8.5-10.1); CARBON DIOXIDE 26 MMOL/L (21-32); CHLORIDE 105 MMOL/L (98-107); CREATININE SERUM 0.76 MG/DL (0.60-1.30); GFR ESTIMATED > 60; GLUCOSE 105 MG/DL (70-105); POTASSIUM 3.8 MMOL/L (3.6-5.0); SODIUM 141 MMOL/L (135-145); TOTAL PROTEIN 6.5 GM/DL (6.4-8.2)
== END 2020-03-28 | disposition home or self-care (01) ==
LOC: ONC 14:20
PROVIDERS: ATTEND Internal Medicine Hematology & Oncology
DX: Z51.11 Encounter for antineoplastic chemotherapy (principal); C34.32 Malignant neoplasm of lower lobe, left bronchus or lung; C79.51 Secondary malignant neoplasm of bone; C78.7 Secondary malignant neoplasm of liver and intrahepatic bile duct; Z92.21 Personal history of antineoplastic chemotherapy; Z92.3 Personal history of irradiation
CPT/HCPCS: 80053; 84443; 85025; 96365; 96413; G0463; 36591

== ENCOUNTER 2020-04-14 13:55 | Outpatient (RCR) | payer MEDICARE, OTHER ==
[~2020-04-14 13:55] MED LIST changes: -NS IV 500 ML (CANCER CENTER) 500 ML ONE; -ZOLEDRONIC ACID (CANCER CTR) 4 MG in NS (IVPB) CANCER CENTER 100 ML IV SCH
[2020-04-14 14:16] LABS: BASOPHILS % (AUTO) 0 % (0-10); EOSINOPHILS # (AUTO) 0.3 10^3/uL (0.0-0.3); EOSINOPHILS % (AUTO) 3 % (0-10); HEMATOCRIT 41 % (35-52); HEMOGLOBIN 13.3 g/dL (11.5-16.0); LYMPHOCYTES # (AUTO) 2.3 10^3/uL (1.0-4.0); LYMPHOCYTES % (AUTO) 25 % (12-44); MEAN CORPUSCULAR HEMOGLOBIN 33 pg (25-34); MEAN CORPUSCULAR HGB CONC 33 g/dL (32-36); MEAN CORPUSCULAR VOLUME 100 fL (80-99); MEAN PLATELET VOLUME 11.4 fL (9.0-12.2); MONOCYTES # (AUTO) 0.8 10^3/uL (0.0-1.0); MONOCYTES % (AUTO) 8 % (0-12); NEUTROPHILS # (AUTO) 5.8 10^3/uL (1.8-7.8); NEUTROPHILS % (AUTO) 63 % (42-75); PLATELET COUNT 194 10^3/uL (130-400); WHITE BLOOD COUNT 9.2 10^3/uL (4.3-11.0)
[2020-04-14 14:28] LABS: ALANINE AMINOTRANSFERASE 9 U/L (0-55); ALBUMIN 3.7 GM/DL (3.2-4.5); ALKALINE PHOSPHATASE 50 U/L (40-136); BILIRUBIN,TOTAL 0.3 MG/DL (0.1-1.0); BUN/CREATININE RATIO 14; CALCIUM 8.6 MG/DL (8.5-10.1); CARBON DIOXIDE 29 MMOL/L (21-32); CHLORIDE 107 MMOL/L (98-107); CREATININE SERUM 0.74 MG/DL (0.60-1.30); GFR ESTIMATED > 60; GLUCOSE 117 MG/DL (70-105); POTASSIUM 3.4 MMOL/L (3.6-5.0); SODIUM 142 MMOL/L (135-145); TOTAL PROTEIN 6.5 GM/DL (6.4-8.2)
== END 2020-04-19 15:32 | disposition home or self-care (01) ==
LOC: ONC 13:55
PROVIDERS: ATTEND Internal Medicine Hematology & Oncology
DX: C34.32 Malignant neoplasm of lower lobe, left bronchus or lung (principal); C79.51 Secondary malignant neoplasm of bone; C78.7 Secondary malignant neoplasm of liver and intrahepatic bile duct; F17.210 Nicotine dependence, cigarettes, uncomplicated; Z92.3 Personal history of irradiation; Z92.21 Personal history of antineoplastic chemotherapy
CPT/HCPCS: 80053; 85025; G0463; 36591

== ENCOUNTER → 2020-06-17 | Outpatient (CLI) | payer MEDICARE, OTHER ==
[~2020-06-17] MED LIST changes: +HOLD METFORMIN - RECEIVED CONTRAST 20 ML VIAL IV SCH; +IOHEXOL 350 MG/ML 100 ML (OMNIPAQUE 350) VIAL IV ONE; +NS 100 ML (IVPB) BAG IV ONE; -NS IV 1000 ML (CANCER CTR) IV SCH; -NS IV SCH; -PEMBROLIZUMAB 200 MG in NS (IVPB) CANCER CENTER 50 ML IV SCH; -ZOLEDRONIC ACID IV SCH
[2020-06-17] MEDS: CATHETER FLUSH 10 ML SYR IV PRN ×2 (11:59→12:44)
--- NOTE | 2020-06-17 12:57 | Diagnostic Imaging Report ---
PROCEDURE: CT chest with contrast, CT abdomen with and without contrast. TECHNIQUE: Precontrast acquisitions were acquired through the abdomen. Multiple contiguous axial images were obtained through the chest and abdomen after administration of intravenous contrast. Auto Exposure Controls were utilized during the CT exam to meet ALARA standards for radiation dose reduction. INDICATION: Lung cancer, follow-up. Correlation is made prior CT chest from 03/15/[address] abdomen from 12/25/2019. CT CHEST: The right chest wall port has tip in the SVC. No axillary lymphadenopathy is seen. No mediastinal or hilar lymphadenopathy is identified. No pericardial fluid is identified. There is trace left pleural fluid. The previously noted bandlike nodular density in the left lower lobe measures 18 mm x 8 mm compared with 20 mm x 8 mm measured by same technique. The subpleural mass left lower lobe is smaller at 3.5 x 2.3 cm compared with 3.9 x 2.4 cm when measured by same technique. Groundglass nodular opacities bilateral upper lobes appears stable. No new abnormality is detected. Sclerotic lesions in the thoracic spine are again noted. IMPRESSION: The nodular densities in the left lower lobe previously described have decreased in size when compared with prior study from 03/15/2020. Groundglass opacities are stable. No thoracic lymphadenopathy is detected. CT ABDOMEN: The hepatic dome lesion measures 50 mm compared with 20 mm when compared exam from December 2019. The lesion along the periphery of the right lobe measures 20 mm compared with 23 mm. The lesion just anterior to this measures approximately 11 mm compared with 13 mm. No new liver lesion is identified. Gallbladder is unremarkable. Pancreas and spleen are unremarkable. No adrenal mass is detected. Kidneys are unremarkable. Aorta is nonaneurysmal. Bowel loops are unremarkable. No definite lymphadenopathy is seen. A spinal instrumentation is again noted. There are multiple osteoblastic lesions consistent with osseous metastatic disease. IMPRESSION: 1. Multiple hepatic lesions do measure smaller on today's study when compared exam from 12/25/2019. No new liver mass is detected. 2. No evidence of abdominal lymphadenopathy. 3. Osteoblastic metastatic disease. Dictated by: Dictated on workstation # [id number]
--- NOTE | 2020-06-17 15:25 | Diagnostic Imaging Report ---
INDICATION: Lung neoplasm. Patient was administered 26.2 mCi technetium 99m MDP intravenously and whole-body imaging was performed after 3 hour delay. Correlation is made with prior whole body bone scan from 03/15/2020. Normal uptake of activity by the axial and appendicular skeletons noted. There is uptake by the kidneys with excretion to urinary bladder. Uptake involving a right anterior rib appears similar to prior exam. There is new uptake involving lower lumbar vertebral body, approximately L4. Mild uptake involving the mid shaft right femur is noted, is more prominent on today's study as well. There is uptake involving the proximal left humerus similar to prior exam. Uptake in the right humerus is stable as well. Degenerative changes bilateral knees are noted. IMPRESSION: There is new abnormal uptake involving the lower lumbar vertebral body as well as the midshaft of the right femur, suspicious for additional sites of metastatic disease. Dictated by: Dictated on workstation # [id number]
== END ==
LOC: CARD 12:00
PROVIDERS: ATTEND Nurse Practitioner Adult Health
DX: C34.32 Malignant neoplasm of lower lobe, left bronchus or lung (principal); C78.7 Secondary malignant neoplasm of liver and intrahepatic bile duct; C79.51 Secondary malignant neoplasm of bone
CPT/HCPCS: 71260; 74170; 78306; A9503

== ENCOUNTER 2020-07-12 13:53 | Outpatient (RCR) | payer MEDICARE, OTHER ==
[2020-05-10 14:10] LABS: BASOPHILS % (AUTO) 1 % (0-10); EOSINOPHILS # (AUTO) 0.3 10^3/uL (0.0-0.3); EOSINOPHILS % (AUTO) 4 % (0-10); HEMATOCRIT 41 % (35-52); LYMPHOCYTES # (AUTO) 1.8 X 10^3 (1.0-4.0); LYMPHOCYTES % (AUTO) 21 % (12-44); MEAN CORPUSCULAR HEMOGLOBIN 33 pg (25-34); MEAN CORPUSCULAR HGB CONC 32 g/dL (32-36); MEAN CORPUSCULAR VOLUME 102 fL (80-99); MONOCYTES # (AUTO) 0.7 X 10^3 (0.0-1.0); MONOCYTES % (AUTO) 8 % (0-12); NEUTROPHILS # (AUTO) 5.6 X 10^3 (1.8-7.8); NEUTROPHILS % (AUTO) 66 % (42-75); PLATELET COUNT 173 10^3/uL (130-400); WHITE BLOOD COUNT 8.4 10^3/uL (4.3-11.0)
[2020-05-10 14:27] LABS: ALANINE AMINOTRANSFERASE < 6 U/L (0-55); ALBUMIN 3.6 GM/DL (3.2-4.5); ALKALINE PHOSPHATASE 54 U/L (40-136); BILIRUBIN,TOTAL 0.4 MG/DL (0.1-1.0); BUN/CREATININE RATIO 14; CALCIUM 8.8 MG/DL (8.5-10.1); CARBON DIOXIDE 24 MMOL/L (21-32); CHLORIDE 106 MMOL/L (98-107); GFR ESTIMATED > 60; GLUCOSE 111 MG/DL (70-105); POTASSIUM 3.3 MMOL/L (3.6-5.0); SODIUM 143 MMOL/L (135-145); TOTAL PROTEIN 6.3 GM/DL (6.4-8.2)
[2020-05-31 11:29] LABS: BASOPHILS # (AUTO) 0.1 10^3/uL (0.0-0.1); BASOPHILS % (AUTO) 1 % (0-10); EOSINOPHILS # (AUTO) 0.5 10^3/uL (0.0-0.3); EOSINOPHILS % (AUTO) 5 % (0-10); HEMATOCRIT 46 % (35-52); HEMOGLOBIN 15.1 g/dL (11.5-16.0); LYMPHOCYTES # (AUTO) 1.9 10^3/uL (1.0-4.0); LYMPHOCYTES % (AUTO) 22 % (12-44); MEAN CORPUSCULAR HEMOGLOBIN 32 pg (25-34); MEAN CORPUSCULAR HGB CONC 33 g/dL (32-36); MEAN CORPUSCULAR VOLUME 99 fL (80-99); MEAN PLATELET VOLUME 11.3 fL (9.0-12.2); MONOCYTES # (AUTO) 0.8 10^3/uL (0.0-1.0); MONOCYTES % (AUTO) 9 % (0-12); NEUTROPHILS # (AUTO) 5.7 10^3/uL (1.8-7.8); NEUTROPHILS % (AUTO) 63 % (42-75); PLATELET COUNT 200 10^3/uL (130-400); WHITE BLOOD COUNT 8.9 10^3/uL (4.3-11.0)
[2020-05-31 11:52] LABS: ALANINE AMINOTRANSFERASE < 6 U/L (0-55); ALKALINE PHOSPHATASE 60 U/L (40-136); BILIRUBIN,TOTAL 0.4 MG/DL (0.1-1.0); BUN/CREATININE RATIO 9; CALCIUM 8.9 MG/DL (8.5-10.1); CARBON DIOXIDE 25 MMOL/L (21-32); CHLORIDE 104 MMOL/L (98-107); CREATININE SERUM 0.79 MG/DL (0.60-1.30); GFR ESTIMATED > 60; GLUCOSE 99 MG/DL (70-105); SODIUM 141 MMOL/L (135-145); TOTAL PROTEIN 7.1 GM/DL (6.4-8.2)
[2020-05-31 12:26] LABS: BILIRUBIN,URINE NEGATIVE (NEGATIVE); CLARITY,URINE CLEAR; COLOR,URINE YELLOW; GLUCOSE, URINE (UA) NEGATIVE (NEGATIVE); KETONES,URINE NEGATIVE (NEGATIVE); LEUKOCYTE ESTERASE ,URINE NEGATIVE (NEGATIVE); NITRITE,URINE NEGATIVE (NEGATIVE); PH,URINE 7.5 (5-9); PROTEIN,URINE NEGATIVE (NEGATIVE)
[2020-05-31 12:41] LABS: BACTERIA,URINE NEGATIVE /HPF; RBC,URINE RARE /HPF; SQUAMOUS EPITHELIAL CELL,UR RARE /HPF; WBC,URINE RARE /HPF
[2020-06-21 14:30] LABS: BASOPHILS % (AUTO) 0 % (0-10); EOSINOPHILS # (AUTO) 0.5 10^3/uL (0.0-0.3); EOSINOPHILS % (AUTO) 5 % (0-10); HEMATOCRIT 48 % (35-52); HEMOGLOBIN 15.7 g/dL (11.5-16.0); LYMPHOCYTES # (AUTO) 2.3 10^3/uL (1.0-4.0); LYMPHOCYTES % (AUTO) 21 % (12-44); MEAN CORPUSCULAR HEMOGLOBIN 32 pg (25-34); MEAN CORPUSCULAR HGB CONC 32 g/dL (32-36); MEAN CORPUSCULAR VOLUME 98 fL (80-99); MEAN PLATELET VOLUME 11.3 fL (9.0-12.2); MONOCYTES % (AUTO) 9 % (0-12); NEUTROPHILS # (AUTO) 7.2 10^3/uL (1.8-7.8); NEUTROPHILS % (AUTO) 65 % (42-75); PLATELET COUNT 192 10^3/uL (130-400); WHITE BLOOD COUNT 11.1 10^3/uL (4.3-11.0)
[2020-06-21 14:53] LABS: ALANINE AMINOTRANSFERASE 8 U/L (0-55); ALBUMIN 3.9 GM/DL (3.2-4.5); ALKALINE PHOSPHATASE 55 U/L (40-136); BILIRUBIN,TOTAL 0.5 MG/DL (0.1-1.0); BUN/CREATININE RATIO 12; CALCIUM 8.7 MG/DL (8.5-10.1); CARBON DIOXIDE 25 MMOL/L (21-32); CHLORIDE 103 MMOL/L (98-107); CREATININE SERUM 0.86 MG/DL (0.60-1.30); GFR ESTIMATED > 60; GLUCOSE 99 MG/DL (70-105); POTASSIUM 3.9 MMOL/L (3.6-5.0); SODIUM 139 MMOL/L (135-145); TOTAL PROTEIN 6.8 GM/DL (6.4-8.2)
[~2020-07-12 13:53] MED LIST changes: -HOLD METFORMIN - RECEIVED CONTRAST 20 ML VIAL IV SCH; -IOHEXOL 350 MG/ML 100 ML (OMNIPAQUE 350) VIAL IV ONE; -NS 100 ML (IVPB) BAG IV ONE; +NS IV 1000 ML (CANCER CTR) IV SCH; +NS IV SCH; +PEMBROLIZUMAB 200 MG in NS (IVPB) CANCER CENTER 50 ML IV SCH; +ZOLEDRONIC ACID IV SCH; +morphine INJ 4 MG/ML 1 ML (CANCER CTR) IV ONE; +morphine INJ 4 MG/ML 1 ML (CANCER CTR) ONE
[2020-07-12 14:12] LABS: BASOPHILS % (AUTO) 1 % (0-10); EOSINOPHILS # (AUTO) 0.6 10^3/uL (0.0-0.3); EOSINOPHILS % (AUTO) 8 % (0-10); HEMATOCRIT 47 % (35-52); HEMOGLOBIN 15.5 g/dL (11.5-16.0); LYMPHOCYTES # (AUTO) 1.1 10^3/uL (1.0-4.0); LYMPHOCYTES % (AUTO) 14 % (12-44); MEAN CORPUSCULAR HEMOGLOBIN 31 pg (25-34); MEAN CORPUSCULAR HGB CONC 33 g/dL (32-36); MEAN CORPUSCULAR VOLUME 95 fL (80-99); MEAN PLATELET VOLUME 11.8 fL (9.0-12.2); MONOCYTES # (AUTO) 0.5 10^3/uL (0.0-1.0); MONOCYTES % (AUTO) 7 % (0-12); NEUTROPHILS # (AUTO) 5.5 10^3/uL (1.8-7.8); NEUTROPHILS % (AUTO) 70 % (42-75); PLATELET COUNT 145 10^3/uL (130-400); WHITE BLOOD COUNT 7.8 10^3/uL (4.3-11.0)
[2020-07-12 14:32] LABS: ALANINE AMINOTRANSFERASE 7 U/L (0-55); ALBUMIN 3.9 GM/DL (3.2-4.5); ALKALINE PHOSPHATASE 51 U/L (40-136); BILIRUBIN,TOTAL 0.3 MG/DL (0.1-1.0); BUN/CREATININE RATIO 25; CALCIUM 8.9 MG/DL (8.5-10.1); CARBON DIOXIDE 23 MMOL/L (21-32); CHLORIDE 104 MMOL/L (98-107); CREATININE SERUM 0.83 MG/DL (0.60-1.30); GFR ESTIMATED > 60; GLUCOSE 104 MG/DL (70-105); POTASSIUM 4.1 MMOL/L (3.6-5.0); SODIUM 139 MMOL/L (135-145); TOTAL PROTEIN 6.8 GM/DL (6.4-8.2)
== END 2020-07-20 | disposition home or self-care (01) ==
LOC: ONC 13:53
PROVIDERS: ATTEND Internal Medicine Hematology & Oncology
DX: Z51.11 Encounter for antineoplastic chemotherapy (principal); C34.32 Malignant neoplasm of lower lobe, left bronchus or lung; C79.51 Secondary malignant neoplasm of bone; C78.7 Secondary malignant neoplasm of liver and intrahepatic bile duct; Z92.21 Personal history of antineoplastic chemotherapy; Z92.3 Personal history of irradiation
CPT/HCPCS: 36591; 77290; 77295; 77300; 77334; 77336; 77417; 77470; 80053; 81000; 84443; 85025; 96365; 96367; 96374; 96413; 99214

== ENCOUNTER → 2020-09-23 | Outpatient (CLI) | payer MEDICARE, OTHER ==
[~2020-09-23] MED LIST changes: +CATHETER FLUSH 10 ML SYR IV PRN; +HOLD METFORMIN - RECEIVED CONTRAST 20 ML VIAL IV SCH; +IOHEXOL 350 MG/ML 100 ML (OMNIPAQUE 350) VIAL IV ONE; +NS 100 ML (IVPB) BAG IV ONE; -NS IV 1000 ML (CANCER CTR) IV SCH; -NS IV SCH; -PEMBROLIZUMAB 200 MG in NS (IVPB) CANCER CENTER 50 ML IV SCH; -ZOLEDRONIC ACID IV SCH; -morphine INJ 4 MG/ML 1 ML (CANCER CTR) IV ONE; -morphine INJ 4 MG/ML 1 ML (CANCER CTR) ONE
--- NOTE | 2020-09-23 15:59 | Diagnostic Imaging Report ---
PROCEDURE: CT chest with contrast, CT abdomen and pelvis with and without contrast. TECHNIQUE: Pre and post intravenous contrast axial imaging of the abdomen and pelvis and post contrast axial imaging of the chest were performed. Auto Exposure Controls were utilized during the CT exam to meet ALARA standards for radiation dose reduction. INDICATION: Malignant neoplasm. FINDINGS: The previous CT chest and abdomen exam performed on 06/17/2020 noted multiple hepatic lesions as well as osteoblastic metastatic disease. On this exam, the areas of enhancement involving the liver, seen previously, are again evident and do not appear to have changed adversely. The lesion in the dome of the right lower liver measures 13 mm. This is unchanged when compared to the prior exam. The other lesions are also similar in size and appearance. No new abnormality involving the liver has developed since the prior study. The spleen, pancreas, kidneys, adrenals, aorta, inferior vena cava and portal vein show no sign of an acute abnormality. The gallbladder is not well-distended and difficult to assess. There may be a trace amount of fluid about the gallbladder. If further study is desired, then ultrasound would be recommended. The stomach is partially filled with fluid and difficult to evaluate. There is no pelvic mass or free fluid collection evident. However, the pelvic contents are obscured by streak artifact related to be total hip prosthesis on the right. The prior posterior fusion of L2-S1, seen previously, is again evident as well. The appendix was not well-visualized but there are no indirect signs of acute appendicitis. The urinary bladder is grossly unremarkable. By history, the uterus is surgically absent. The images through the thorax reveal that the 2.3 x 3.5 cm pleural-based mass along the posterior aspect of the left lower lobe is again evident. This mass now measures 2.1 x 3.6 cm and does not appear to have changed significantly since the prior exam. The elongate density in the posterior aspect of the left midlung measuring 8 x 18 mm previously is again visualized and is now is estimated to be 6 x 19 mm. This finding seems stable as well. There is also a 7 mm poorly defined parenchymal nodule adjacent to the minor fissure on the left. On the prior exam this finding measured only 5 mm. This could be secondary to a small focus of atelectasis/scar formation as it does not seem to have changed appreciably since the prior CT chest exam of 03/15/2020. There is no other parenchymal lung mass identified. The faint groundglass densities in both lungs, seen previously, are again visualized and no different. There is no consolidated pneumonia identified nor is there any sign of a significant pleural effusion. Trace amount of fluid is again seen in the left lung base. The heart size is within normal limits. Coronary artery calcifications are evident. The aorta is not abnormal dilation and there is no sign of dissection. There is no defect within the pulmonary arteries to indicate a pulmonary embolus but the pulmonary arteries were not well opacified. There is no mediastinal or hilar adenopathy. The thyroid gland, where visualized, is unremarkable. The right-sided Port-A-Cath, seen previously, is again evident. The tip of the catheter is in the midportion of the superior vena cava. There is no obvious breast mass. The bone windows again show numerous blastic lesions involving the thoracic lumbar spine and pelvis as well as the right humeral head. There is also a healed nondisplaced fracture of the right 4th rib. This could be pathologic in nature. IMPRESSION: 1. The overall appearance of the chest, abdomen and pelvis has not changed adversely since the prior exam. There is no evidence for an acute abnormality.. 2. The masses in the left lung, seen previously, appear stable as do the enhancing masses involving the liver. The osteoblastic metastatic disease does not appear to have progressed either. Dictated by: Dictated on workstation # [id number]
--- NOTE | 2020-09-23 18:59 | Diagnostic Imaging Report ---
INDICATION: Lung cancer. COMPARISON: Study of 06/17/2020. TECHNIQUE: Patient received 25.6 mCi technetium 99m MDP. After 3 hours whole-body planar imaging performed. FINDINGS: Right mid femoral shaft lesion again noted. At the junction of the mid to proximal thirds of the right femur there is a new subtle uptake suspicious for a new area of metastatic disease. Abnormal uptake about the left femoral head/acetabulum, unchanged. Abnormal uptake in the lower lumbar spine. The thoracolumbar junction in the mid T-spine, all unchanged. Right lateral rib lesion is unchanged. Bilateral proximal humeral lesions, unchanged. Calvarium unremarkable. IMPRESSION: There may be a new lesion developing in the proximal shaft of the right femur. Other lesions all appeared unchanged. Dictated by: Dictated on workstation # [id number]
== END ==
LOC: CARD 11:55
PROVIDERS: ATTEND Nurse Practitioner Adult Health
DX: C34.32 Malignant neoplasm of lower lobe, left bronchus or lung (principal); C78.7 Secondary malignant neoplasm of liver and intrahepatic bile duct; C79.51 Secondary malignant neoplasm of bone
CPT/HCPCS: 71260; 74178; 78306; A9503

== ENCOUNTER 2020-10-25 12:54 | Outpatient (RCR) | payer MEDICARE, OTHER ==
[2020-08-02 14:38] LABS: BASOPHILS # (AUTO) 0.1 10^3/uL (0.0-0.1); BASOPHILS % (AUTO) 1 % (0-10); EOSINOPHILS # (AUTO) 0.7 10^3/uL (0.0-0.3); EOSINOPHILS % (AUTO) 9 % (0-10); HEMATOCRIT 46 % (35-52); HEMOGLOBIN 14.7 g/dL (11.5-16.0); LYMPHOCYTES # (AUTO) 1.7 10^3/uL (1.0-4.0); LYMPHOCYTES % (AUTO) 21 % (12-44); MEAN CORPUSCULAR HEMOGLOBIN 31 pg (25-34); MEAN CORPUSCULAR HGB CONC 32 g/dL (32-36); MEAN CORPUSCULAR VOLUME 95 fL (80-99); MEAN PLATELET VOLUME 11.3 fL (9.0-12.2); MONOCYTES # (AUTO) 0.7 10^3/uL (0.0-1.0); MONOCYTES % (AUTO) 9 % (0-12); NEUTROPHILS # (AUTO) 4.8 10^3/uL (1.8-7.8); NEUTROPHILS % (AUTO) 60 % (42-75); PLATELET COUNT 211 10^3/uL (130-400); WHITE BLOOD COUNT 7.9 10^3/uL (4.3-11.0)
[2020-08-02 14:56] LABS: ALANINE AMINOTRANSFERASE 8 U/L (0-55); ALBUMIN 3.9 GM/DL (3.2-4.5); ALKALINE PHOSPHATASE 47 U/L (40-136); BILIRUBIN,TOTAL 0.4 MG/DL (0.1-1.0); BUN/CREATININE RATIO 11; CALCIUM 8.9 MG/DL (8.5-10.1); CARBON DIOXIDE 21 MMOL/L (21-32); CHLORIDE 105 MMOL/L (98-107); CREATININE SERUM 0.73 MG/DL (0.60-1.30); GFR ESTIMATED > 60; GLUCOSE 97 MG/DL (70-105); POTASSIUM 3.9 MMOL/L (3.6-5.0); SODIUM 139 MMOL/L (135-145); TOTAL PROTEIN 6.7 GM/DL (6.4-8.2)
[2020-08-02 15:55] LABS: BILIRUBIN,URINE NEGATIVE (NEGATIVE); COLOR,URINE DARK YELLOW; GLUCOSE, URINE (UA) NEGATIVE (NEGATIVE); KETONES,URINE NEGATIVE (NEGATIVE); LEUKOCYTE ESTERASE ,URINE NEGATIVE (NEGATIVE); NITRITE,URINE NEGATIVE (NEGATIVE); PH,URINE 5.5 (5-9); PROTEIN,URINE NEGATIVE (NEGATIVE)
[2020-08-02 16:01] LABS: BACTERIA,URINE MODERATE /HPF; CLARITY,URINE SL CLOUDY; HYALINE CASTS, URINE RARE /LPF; RBC,URINE RARE /HPF
[2020-08-23 14:29] LABS: BASOPHILS % (AUTO) 0 % (0-10); EOSINOPHILS # (AUTO) 0.4 10^3/uL (0.0-0.3); EOSINOPHILS % (AUTO) 6 % (0-10); HEMATOCRIT 42 % (35-52); HEMOGLOBIN 13.5 g/dL (11.5-16.0); LYMPHOCYTES # (AUTO) 1.6 X 10^3 (1.0-4.0); LYMPHOCYTES % (AUTO) 23 % (12-44); MEAN CORPUSCULAR HEMOGLOBIN 31 pg (25-34); MEAN CORPUSCULAR HGB CONC 33 g/dL (32-36); MEAN CORPUSCULAR VOLUME 96 fL (80-99); MEAN PLATELET VOLUME 10.7 fL (9.0-12.2); MONOCYTES # (AUTO) 0.6 X 10^3 (0.0-1.0); MONOCYTES % (AUTO) 9 % (0-12); NEUTROPHILS # (AUTO) 4.4 X 10^3 (1.8-7.8); NEUTROPHILS % (AUTO) 62 % (42-75); PLATELET COUNT 181 10^3/uL (130-400); WHITE BLOOD COUNT 7.2 10^3/uL (4.3-11.0)
[2020-08-23 14:50] LABS: ALANINE AMINOTRANSFERASE 9 U/L (0-55); ALBUMIN 3.9 GM/DL (3.2-4.5); ALKALINE PHOSPHATASE 50 U/L (40-136); BILIRUBIN,TOTAL 0.4 MG/DL (0.1-1.0); BUN/CREATININE RATIO 15; CALCIUM 8.5 MG/DL (8.5-10.1); CARBON DIOXIDE 25 MMOL/L (21-32); CHLORIDE 105 MMOL/L (98-107); CREATININE SERUM 0.68 MG/DL (0.60-1.30); GFR ESTIMATED > 60; GLUCOSE 95 MG/DL (70-105); POTASSIUM 4.1 MMOL/L (3.6-5.0); SODIUM 139 MMOL/L (135-145); TOTAL PROTEIN 6.3 GM/DL (6.4-8.2)
[2020-09-14 14:00] LABS: BASOPHILS # (AUTO) 0.1 10^3/uL (0.0-0.1); BASOPHILS % (AUTO) 1 % (0-10); EOSINOPHILS # (AUTO) 0.2 10^3/uL (0.0-0.3); EOSINOPHILS % (AUTO) 2 % (0-10); HEMATOCRIT 40 % (35-52); LYMPHOCYTES # (AUTO) 1.1 10^3/uL (1.0-4.0); LYMPHOCYTES % (AUTO) 11 % (12-44); MEAN CORPUSCULAR HEMOGLOBIN 32 pg (25-34); MEAN CORPUSCULAR HGB CONC 33 g/dL (32-36); MEAN CORPUSCULAR VOLUME 97 fL (80-99); MEAN PLATELET VOLUME 12.1 fL (9.0-12.2); MONOCYTES # (AUTO) 0.6 10^3/uL (0.0-1.0); MONOCYTES % (AUTO) 6 % (0-12); NEUTROPHILS # (AUTO) 7.7 10^3/uL (1.8-7.8); NEUTROPHILS % (AUTO) 80 % (42-75); PLATELET COUNT 166 10^3/uL (130-400); WHITE BLOOD COUNT 9.7 10^3/uL (4.3-11.0)
[2020-09-14 14:20] LABS: ALANINE AMINOTRANSFERASE 6 U/L (0-55); ALBUMIN 3.6 GM/DL (3.2-4.5); ALKALINE PHOSPHATASE 43 U/L (40-136); BILIRUBIN,TOTAL 0.7 MG/DL (0.1-1.0); BUN/CREATININE RATIO 12; CALCIUM 8.9 MG/DL (8.5-10.1); CARBON DIOXIDE 28 MMOL/L (21-32); CHLORIDE 104 MMOL/L (98-107); CREATININE SERUM 0.73 MG/DL (0.60-1.30); GFR ESTIMATED > 60; GLUCOSE 107 MG/DL (70-105); POTASSIUM 3.4 MMOL/L (3.6-5.0); SODIUM 139 MMOL/L (135-145); TOTAL PROTEIN 6.2 GM/DL (6.4-8.2)
[2020-10-04 13:35] LABS: BASOPHILS % (AUTO) 0 % (0-10); EOSINOPHILS # (AUTO) 0.5 10^3/uL (0.0-0.3); EOSINOPHILS % (AUTO) 7 % (0-10); HEMATOCRIT 39 % (35-52); HEMOGLOBIN 12.6 g/dL (11.5-16.0); LYMPHOCYTES # (AUTO) 1.1 10^3/uL (1.0-4.0); LYMPHOCYTES % (AUTO) 15 % (12-44); MEAN CORPUSCULAR HEMOGLOBIN 32 pg (25-34); MEAN CORPUSCULAR HGB CONC 32 g/dL (32-36); MEAN CORPUSCULAR VOLUME 100 fL (80-99); MEAN PLATELET VOLUME 11.9 fL (9.0-12.2); MONOCYTES # (AUTO) 0.7 10^3/uL (0.0-1.0); MONOCYTES % (AUTO) 9 % (0-12); NEUTROPHILS # (AUTO) 5.2 10^3/uL (1.8-7.8); NEUTROPHILS % (AUTO) 69 % (42-75); PLATELET COUNT 159 10^3/uL (130-400); WHITE BLOOD COUNT 7.6 10^3/uL (4.3-11.0)
[2020-10-04 13:53] LABS: ALANINE AMINOTRANSFERASE 6 U/L (0-55); ALBUMIN 3.8 GM/DL (3.2-4.5); ALKALINE PHOSPHATASE 48 U/L (40-136); BILIRUBIN,TOTAL 0.6 MG/DL (0.1-1.0); BUN/CREATININE RATIO 12; CALCIUM 8.5 MG/DL (8.5-10.1); CARBON DIOXIDE 25 MMOL/L (21-32); CHLORIDE 106 MMOL/L (98-107); CREATININE SERUM 0.68 MG/DL (0.60-1.30); GFR ESTIMATED > 60; GLUCOSE 96 MG/DL (70-105); POTASSIUM 3.7 MMOL/L (3.6-5.0); SODIUM 140 MMOL/L (135-145); TOTAL PROTEIN 6.5 GM/DL (6.4-8.2)
[~2020-10-25 12:54] MED LIST changes: -CATHETER FLUSH 10 ML SYR IV PRN; -HOLD METFORMIN - RECEIVED CONTRAST 20 ML VIAL IV SCH; -IOHEXOL 350 MG/ML 100 ML (OMNIPAQUE 350) VIAL IV ONE; -NS 100 ML (IVPB) BAG IV ONE; +NS IV 1000 ML (CANCER CTR) IV SCH; +NS IV SCH; +PEMBROLIZUMAB 200 MG in NS (IVPB) CANCER CENTER 50 ML IV SCH; +ZOLEDRONIC ACID IV SCH
== END 2020-10-31 | disposition still patient (30) ==
LOC: ONC 12:54
PROVIDERS: ATTEND Internal Medicine Hematology & Oncology
DX: Z51.11 Encounter for antineoplastic chemotherapy (principal); C34.32 Malignant neoplasm of lower lobe, left bronchus or lung; C79.51 Secondary malignant neoplasm of bone; C78.7 Secondary malignant neoplasm of liver and intrahepatic bile duct; D64.9 Anemia, unspecified; Z92.21 Personal history of antineoplastic chemotherapy; Z92.3 Personal history of irradiation
CPT/HCPCS: 80053; 81000; 84443; 85025; 87088; 96367; 96413; G0463; 36591; 96365

== ENCOUNTER → 2020-12-31 | Outpatient (CLI) | payer MEDICARE, OTHER ==
[~2020-12-31] MED LIST changes: +CATHETER FLUSH 10 ML SYR IV PRN; +HOLD METFORMIN - RECEIVED CONTRAST 20 ML VIAL IV SCH; +IOHEXOL 350 MG/ML 100 ML (OMNIPAQUE 350) VIAL IV ONE; +NS 100 ML (IVPB) BAG IV ONE; -NS IV 1000 ML (CANCER CTR) IV SCH; -NS IV SCH; -PEMBROLIZUMAB 200 MG in NS (IVPB) CANCER CENTER 50 ML IV SCH; -ZOLEDRONIC ACID IV SCH
[2020-12-31] MEDS: CATHETER FLUSH 10 ML SYR IV PRN ×2 (12:26→15:52)
--- NOTE | 2020-12-31 17:43 | Diagnostic Imaging Report ---
INDICATION: Pain all over. History of right hip replacement. History of lung cancer. TECHNIQUE: The patient was administered 25 mCi technetium-99m MDP intravenously. After an approximately 2-hour delay, anterior and posterior whole-body planar images are obtained. CORRELATION STUDY: 09/23/2020. FINDINGS: Suboptimal evaluation of the lower extremities owing to positioning. Radiopenia compatible with right hip prosthesis is present. Asymmetric uptake is again demonstrated in the distal right femoral shaft, appears generally stable. Likely degenerative uptake about bilateral knees as well as the mid feet and ankles. The pelvis is also largely obscured by moderate amount of distention of the urinary bladder. There is, however, again demonstrated rather significant uptake in the left hip, appearing perhaps degenerative activity. There is a more prominent uptake at approximately the L5 vertebral body. It appears slightly more pronounced from prior. Mild uptake about the mid to lower thoracic spine. Bilateral ribs demonstrate unchanged uptake laterally at approximately the right fourth rib. Bilateral shoulder girdles appearing generally stable. Previously demonstrated proximal humeral lesions overall unchanged. Bony calvarium unremarkable. IMPRESSION: 1. Generally stable appearance about the whole-body bone scan with multifocal areas of radiotracer accumulation. No definitive lesion suggested about the proximal right femoral shaft with the distal right femoral lesion, unchanged. Other lesions appearing stable. Dictated by: Dictated on workstation # [id number]
--- NOTE | 2020-12-31 18:00 | Diagnostic Imaging Report ---
INDICATION: Lung cancer, history of radiation treatment and immune therapy. TECHNIQUE: Pre and post intravenous contrast axial imaging of the abdomen and pelvis and post contrast axial imaging of the chest were performed. Auto Exposure Controls were utilized during the CT exam to meet ALARA standards for radiation dose reduction. COMPARISON: Comparison made to prior CT chest, abdomen, and pelvis of 09/23/2020. CT CHEST FINDINGS: Port-A-Cath is in place. There are no enlarged mediastinal nodes. There are no enlarged axillary nodes. There is no pleural or pericardial fluid. Minimal area of scar versus nodule in the left upper lobe measures about 6 mm, basically unchanged compared to the prior study. The elongated area of scarring versus nodule in the left lower lobe, which had measured 1.9 x 0.6 cm now measures about 1.8 x 0.6 cm, essentially the same. Ovoid nodular density which is pleural based along the left lung base more inferiorly, which had measured 2.1 x 3.6 cm now measures about 3.2 x 1.7 cm, slightly smaller. Hypodense lesion inferior to the left hilum, adjacent to the descending aorta measures 2.2 x 1.7 cm, compared to 2.0 x 1.4 cm previously. There are no definite new pulmonary parenchymal lesions. Bony lesions seen previously appear similar to the prior study. CT ABDOMEN AND PELVIS FINDINGS: Compared to the prior study, the partially calcified lesion in the dome of the liver measures about 1.2 cm, essentially unchanged compared to the prior study. Hypodense partially calcified lesion in the right lobe of the liver laterally measures about 1.7 cm and appears unchanged. Smaller hypodense lesion without calcium more centrally in the right lobe is also stable. Gallbladder and spleen are unremarkable. There appear to be enlarged periportal lymph nodes, the largest measured about 2.6 x 1.5 cm; this measured about 2.5 x 1.4 cm on the prior study, essentially unchanged. The kidneys appear unremarkable. There are no new periaortic lymph nodes. The right psoas muscle appears to be enlarged compared to the prior study and appears predominantly hypodense measuring about 3.8 x 3.7 cm. This finding may represent a hematoma or abscess or less likely mass. Patient has had previous lumbar fusion and right hip replacement. Bony lesions in the pelvis and lumbar spine are unchanged from the prior study. Marked degenerative findings of the left hip are noted. IMPRESSION: Chest CT demonstrates slight increase in size of the hypodense lesion inferior to the left hilum, adjacent to the descending aorta. The left lower lobe lung lesion inferiorly is slightly smaller. Other lesions mentioned above are unchanged. There is no pleural fluid. No change in apparent bony metastatic lesions. CT abdomen and pelvis demonstrates no change in the multiple liver lesions when compared to the previous study. Periportal adenopathy appears basically unchanged compared to the prior study as well. Bony metastatic lesions are again noted. There is a new finding of enlargement of the right psoas muscle with fluid-like density, this may represent a hematoma or abscess, or less likely mass. This finding was not present on 09/23/2020. Dictated by: Dictated on workstation # [id number]
== END ==
LOC: CARD 12:13
PROVIDERS: ATTEND Internal Medicine Hematology & Oncology
DX: C34.32 Malignant neoplasm of lower lobe, left bronchus or lung (principal); C79.51 Secondary malignant neoplasm of bone; C78.7 Secondary malignant neoplasm of liver and intrahepatic bile duct; Z96.641 Presence of right artificial hip joint; Z92.3 Personal history of irradiation
CPT/HCPCS: 71260; 74178; 78306; A9503

== ENCOUNTER 2021-01-13 10:25 | Observation (INO) | payer MEDICARE, OTHER ==
[~2021-01-13] VITALS: Ht 172.7 cm; Wt 51.1 kg
[~2021-01-13 10:25] MED LIST changes: -CATHETER FLUSH 10 ML SYR IV PRN; -HOLD METFORMIN - RECEIVED CONTRAST 20 ML VIAL IV SCH; -IOHEXOL 350 MG/ML 100 ML (OMNIPAQUE 350) VIAL IV ONE; -NS 100 ML (IVPB) BAG IV ONE
--- OUTSIDE RECORDS SUMMARY | 2021-01-13 10:30 | XMS REPORT | Clinical Summary ---
Author Author [facility] Organization [facility] Address Unknown Phone Unavailable Care Team Providers Care Parts Person Name Role Phone Cathy Hubbard APRN PCP Source Comments Some departments are not documenting in the electronic medical record. If you d o not see the information that you expected, contact Release of Information in [facility] [employer] Information Management department at [phone] for further assistan ce in locating additional records.[facility] Allergies Comments Active Allergy Reactions Severity Noted Date Allergy recorded in SMS: Sulfa~Reactions: RASH Sulfa (Sulfonamide Low 07/18/2005 Antibiotics) Medications End Date Status Medication Sig Dispensed Refills Start Date Active gabapentin (NEURONTIN) Take 400 mg 0 400 mg capsule by mouth as Needed. Active ALPRAZolam (XANAX) 0.5 mg Take 0.5 mg 0 tablet by mouth at bedtime as needed for Anxiety. Active ibuprofen (ADVIL) 200 mg Take 200 mg 0 tablet by mouth every 6 hours as needed for Pain. Take with food. Active hydrOXYzine pamoate Take 25 mg by 0 (VISTARIL) 25 mg capsule mouth. Active Problems No known active problems Medical History Medical History Date Comments Anxiety disorder Family History Medical History Relation Name Comments Cancer Brother Cancer Father Cancer Mother Relation Name Status Comments Brother Father Mother Social History Date Tobacco Use Types Packs/Day Years Used Current Every Day Smoker Cigarettes Smokeless Tobacco: Never Used Comments Alcohol Use Standard Drinks/Week Yes 0 (1 standard drink = 0.6 o z pure alcohol) Sex Assigned at Date Recorded Not on file Last Filed Vital Signs Reading Time Taken Comments Vital Sign 143/81 11/19/2018 8:47 AM CDT Blood Pressure 73 11/19/2018 8:47 AM CDT Pulse 36.9 C (98.4 F) 11/19/2018 8:47 AM CDT Temperature - - Respiratory Rate - - Oxygen Saturation - - Inhaled Oxygen Concentration 77.2 kg (170 lb 3.2 oz) 11/19/2018 8:47 AM CDT Weight 170.2 cm (5' 7") 11/19/2018 8:47 AM CDT Height 26.66 11/19/2018 8:47 AM CDT Body Mass Index Plan of Treatment Health Maintenance Due Date Last Done Comments MEDICARE ANNUAL WELLNESS 1945 VISIT PNEUMONIA (PPSV23) 11/10/1953 VACCINE (1 of 2 - PPSV23) DTAP/TDAP VACCINES (1 - 11/10/1965 Tdap) HEPATITIS C SCREENING 11/10/1965 PHYSICAL (COMPREHENSIVE) 11/10/1965 EXAM BREAST CANCER SCREENING 1987 COLORECTAL CANCER 11/10/1997 SCREENING SHINGLES RECOMBINANT 11/10/1997 VACCINE (1 of 2) OSTEOPOROSIS 11/10/2012 SCREENING/MONITORING INFLUENZA VACCINE 11/14/2020 Results Not on filefrom Last 3 Months Insurance Type Payer Benefit Subscriber ID Effective Phone Address Plan / Dates Group Medicare MEDICARE MEDICARE [id number] 1998-P PART A AND resent B Indemnity GENERIC COMMERCIAL GENERIC [id number] 2018-P COMMERCIAL resent Liability Advance Directives 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
--- NOTE | 2021-01-13 10:42 | ED General ---
General Stated Complaint: NEEDS FLUIDS,R HIP/LEG PAIN Source of Information: Patient Exam Limitations: No Limitations History of Present Illness Date Seen by Provider: Jan 13, 2021 Time Seen by Provider: 11:00 Initial Comments To ER by private vehicle with reports of intolerable right hip pain. She is on morphine 100 mg twice a day. She has known lung cancer with bony metastasis and liver metastasis. She has had chills lately but has not measured any temperature. Timing/Duration: Getting Worse Severity: Moderate Associated Systoms: Fever/Chills Allergies and Home Medications Allergies Coded Allergies: Sulfa (Sulfonamide Antibiotics) (Unverified Allergy, Mild, HIVES, SWELLING AND ITCHING, 07/08/19) Patient Home Medication List Home Medication List Reviewed: Yes Acetaminophen (Tylenol) 325 Mg Capsule, 975 MG PO TID Prescribed by: MANNY CANELA on 07/02/19 1031 Allopurinol (Allopurinol) 100 Mg Tablet, 100 MG PO DAILY Prescribed by: MANNY CANELA on 07/06/19 1243 Betamethasone/Propylene Glyc (Betamethasone Dp Aug 0.05% Crm) 15 Gm Cream..g., 1 APPLIC TOP DAILY PRN for RASH, (Reported) Entered as Reported by: SAMY LEWIS on 07/01/19 1522 Calcium Carbonate (Tums Ultra) 400 Mg Tab.chew, 800 MG PO PRN PRN for INDIGESTION, (Reported) Entered as Reported by: SAMY LEWIS on 07/01/19 1522 Cetirizine HCl (Zyrtec) 10 Mg Tablet, 10 MG PO DAILY PRN for ALLERGY SYMPTOMS, (Reported) Entered as Reported by: SAMY LEWIS on 07/01/19 1522 Gabapentin (Gabapentin) 400 Mg Capsule, 400 MG PO TID, (Reported) Entered as Reported by: SAMY LEWIS on 07/01/19 152 Ibuprofen (Advil) 200 Mg Tablet, 400 MG PO Q6H PRN for PAIN-MILD (1-4), (Reported) Entered as Reported by: SAMY LEWIS on 07/01/19 152 Oxycodone HCl (Oxycontin) 30 Mg Tab.er.12h, 30 MG PO BID Prescribed by: MANNY CANELA on 07/06/19 1023 Oxycodone HCl (Oxycodone HCl) 10 Mg Tablet, 10 MG PO Q4H PRN for PAIN-SEVERE (8- 10) Prescribed by: MANNY CANELA on 07/06/19 1023 Oxycodone HCl (Oxycontin) 40 Mg Tab.er.12h, 40 MG PO BID Prescribed by: MAINE KUMAR on 07/29/19 1210 Prednisone (Prednisone) 10 Mg Tab.ds.pk, 10 MG PO DAILY Prescribed by: MANNY CANELA on 07/06/19 1023 Review of Systems Review of Systems Constitutional: see HPI, chills, weakness EENTM: see HPI Respiratory: no symptoms reported Cardiovascular: no symptoms reported Genitourinary: no symptoms reported Musculoskeletal: see HPI Skin: no symptoms reported Psychiatric/Neurological: No Symptoms Reported Past Ykqzbff-Ryknxm-Wnbbsz Hx Seasonal Allergies Seasonal Allergies: No Past Medical History Surgeries: Yes (colon resection) Abdominal, Appendectomy, Hysterectomy, Joint Replacement, Neurological, Orthopedic Respiratory: Yes (METASTATIC LUNG CANCER DX 05/2019; NOCTURNAL HYPOXIA-NEW DX. 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 Genitourinary: No Gastrointestinal: Yes Diverticulosis Musculoskeletal: Yes Degenerate Disk Disease, Arthritis, Rheumatoid Arthritis, Chronic Back Pain Endocrine: Yes Diabetes, Non-Insulin dep HEENT: No Cancer: Yes (METASTATIC LUNG CANCER--TO BONE, WIDESPREAD) Bone, Lung Did You Recieve Any Treatments: No Psychosocial: Yes (SINCE CA DX) Anxiety Integumentary: No Blood Disorders: No Family Medical History Neoplasm 19 FATHER (BLADDER CANCER) 19 MOTHER (OVARIAN CANCER) G8 BROTHER (COLON CANCER) G8 SISTER (BACK AND LUNG CANCER) PSH: - X 2 -HYSTERECTOMY/BSO FOR DUB -APPENDECTOMY -COLON RESECTION FOR DIVERTICULITIS -BACK SURGERY X 4 -BILATERAL KNEE SCOPES -RIGHT HIP REPLACEMENT DUE TO ARTHRITIS Physical Exam Vital Signs Vital Signs - First Documented 01/13/21 10:25 Temp 36.8 Pulse 77 Resp 18 B/P (MAP) 154/78 (103) Pulse Ox 93 Capillary Refill : Height, Weight, BMI Height: '" Weight: lbs. oz. kg; 25.00 BMI Method: General Appearance: No Apparent Distress, WD/WN Eyes: Bilateral Eye Normal Inspection, Bilateral Eye PERRL, Bilateral Eye EOMI Respiratory: No Accessory Muscle Use, No Respiratory Distress Cardiovascular: Regular Rate, Rhythm, Normal Peripheral Pulses Gastrointestinal: Soft, Abnormal Bowel Sounds (Hypoactive) Extremity: Normal Capillary Refill, Normal Inspection, Other (Tenderness to the right lower abdomen on palpation) Neurologic/Psychiatric: Alert, Oriented x3 Skin: Normal Color, Warm/Dry Focused Exam Lactate Level 01/13/21 12:29: Lactic Acid Level 1.23 Lactic Acid Level Laboratory Tests Test 01/13/21 12:29 Lactic Acid Level 1.23 MMOL/L (0.50-2.00) Progress/Results/Core Measures Suspected Sepsis SIRS Temperature: Pulse: Respiratory Rate: Laboratory Tests 01/13/21 10:45: White Blood Count 17.7H Blood Pressure / Mean: 01/13/21 12:29: Lactic Acid Level 1.23 Laboratory Tests 01/13/21 10:45: Creatinine 0.78, Platelet Count 171, Total Bilirubin 0.6 Results/Orders Lab Results Laboratory Tests Test 01/13/21 10:45 01/13/21 12:29 Range/Units White Blood Count 17.7 H 4.3-11.0 10^3/uL Red Blood Count 4.53 3.80-5.11 10^6/uL Hemoglobin 14.3 11.5-16.0 g/dL Hematocrit 43 35-52 % Mean Corpuscular Volume 95 80-99 fL Mean Corpuscular Hemoglobin 32 25-34 pg Mean Corpuscular Hemoglobin Concent 33 32-36 g/dL Red Cell Distribution Width 14.5 10.0-14.5 % Platelet Count 171 130-400 10^3/uL Mean Platelet Volume 12.3 H 9.0-12.2 fL Immature Granulocyte % (Auto) 1 % Neutrophils (%) (Auto) 76 H 42-75 % Lymphocytes (%) (Auto) 7 L 12-44 % Monocytes (%) (Auto) 8 0-12 % Eosinophils (%) (Auto) 9 0-10 % Basophils (%) (Auto) 1 0-10 % Neutrophils # (Auto) 13.4 H 1.8-7.8 10^3/uL Lymphocytes # (Auto) 1.2 1.0-4.0 10^3/uL Monocytes # (Auto) 1.4 H 0.0-1.0 10^3/uL Eosinophils # (Auto) 1.6 H 0.0-0.3 10^3/uL Basophils # (Auto) 0.1 0.0-0.1 10^3/uL Immature Granulocyte # (Auto) 0.2 H 0.0-0.1 10^3/uL Neutrophils % (Manual) 73 % Lymphocytes % (Manual) 5 % Monocytes % (Manual) 7 % Eosinophils % (Manual) 12 % Basophils % (Manual) 0 % Band Neutrophils 3 % Blood Morphology Comment NORMAL Sodium Level 139 135-145 MMOL/L Potassium Level 4.0 3.6-5.0 MMOL/L Chloride Level 102 98-107 MMOL/L Carbon Dioxide Level 24 21-32 MMOL/L Anion Gap 13 5-14 MMOL/L Blood Urea Nitrogen 13 7-18 MG/DL Creatinine 0.78 0.60-1.30 MG/DL Estimat Glomerular Filtration Rate 72 BUN/Creatinine Ratio 17 Glucose Level 101 70-105 MG/DL Calcium Level 9.1 8.5-10.1 MG/DL Corrected Calcium 9.5 8.5-10.1 MG/DL Total Bilirubin 0.6 0.1-1.0 MG/DL Aspartate Amino Transf (AST/SGOT) 8 5-34 U/L Alanine Aminotransferase (ALT/SGPT) 7 0-55 U/L Alkaline Phosphatase 44 40-136 U/L Total Protein 6.5 6.4-8.2 GM/DL Albumin 3.5 3.2-4.5 GM/DL Procalcitonin 0.14 H <0.10 NG/ML Lactic Acid Level 1.23 0.50-2.00 MMOL/L My Orders Orders - JONA NORTH APRN Ns Iv 1000 Ml (Sodium Chloride 0.9%) (01/13/21 10:45) Ketamine Syringe (Ketamine Syringe) (01/13/21 10:45) Ondansetron Injection (Zofran Injectio (01/13/21 10:45) Cbc With Automated Diff (01/13/21 10:40) Comprehensive Metabolic Panel (01/13/21 10:40) Ed Iv/Invasive Line Start (01/13/21 10:40) Manual Differential (01/13/21 10:45) Procalcitonin (Pct) (01/13/21 11:32) Blood Culture (01/13/21 11:32) Ct Abdomen/Pelvis W (01/13/21 11:34) Lactic Acid Analyzer (01/13/21 12:18) Iohexol Injection (Omnipaque 350 Mg/Ml 1 (01/13/21 12:30) Received Contrast (Hold Metformin- Contr (01/13/21 12:30) Ns (Ivpb) (Sodium Chloride 0.9% Ivpb Bag (01/13/21 12:30) Medications Given in ED Current Medications Medications Dose Ordered Sig/Cosme Route Start Time Stop Time Status Last Admin Dose Admin Iohexol 100 ml ONCE ONCE IV 01/13/21 12:30 01/13/21 12:31 DC 01/13/21 12:34 67 ML Ketamine HCl 25 mg ONCE ONCE IV 01/13/21 10:45 01/13/21 10:46 DC 01/13/21 10:55 25 MG Ondansetron HCl 8 mg ONCE ONCE IVP 01/13/21 10:45 01/13/21 10:46 DC 01/13/21 10:57 8 MG Sodium Chloride 100 ml ONCE ONCE IV 01/13/21 12:30 01/13/21 12:31 DC 01/13/21 12:34 80 ML Vital Signs/I&O 01/13/21 01/13/21 10:25 11:46 Temp 36.8 Pulse 77 59 Resp 18 18 B/P (MAP) 154/78 (103) 131/64 Pulse Ox 93 Capillary Refill : Departure Communication (Admissions) Time/Spoke to Admitting Phy: 13:[address] Canela, will admit. I spoke with Dr. Serrano, we will consult him and Dr. Curtis as well as Dr. Henning. Dr. Henning plans to do a percutaneous biopsy versus drainage tomorrow at about 830 tentatively though that may change. Given her fevers and new leukocytosis this is more likely represent abscess. Spoke with Dr. Curtis and Dr. Henning, both of whom agree with initiating antibiotics today rather than waiting till tomorrow. Pain is well controlled here with having given 25 mg of ketamine IV. She is DO NOT RESUSCITATE status. Impression Primary Impression: Psoas muscle abscess Additional Impression: Pain of metastatic malignancy Disposition: ADMITTED INPATIENT Condition: Stable Admissions Decision to Admit Reason: Admit from ER (General) Decision to Admit/Date: Jan 13, 2021 Time/Decision to Admit Time: 13:17 Departure-Patient Inst. Referrals: SAGE VICTORIA MD (PCP/Family) Primary Care Physician JONA NORTH APRN Jan 13, 2021 10:41
[2021-01-13] MEDS ORDERED: KETAMINE SYRINGE 50 MG/5 ML SYRINGE IV ONE (10:45)
[2021-01-13] MEDS ORDERED: NS IV 1000 ML 1,000 ML IV SCH (10:45)
[2021-01-13] MEDS ORDERED: ONDANSETRON 4 MG/2 ML (SDV) Z0FRAN IVP ONE (10:45)
[2021-01-13 10:49] LABS: BASOPHILS # (AUTO) 0.1 10^3/uL (0.0-0.1); BASOPHILS % (AUTO) 1 % (0-10); EOSINOPHILS # (AUTO) 1.6 10^3/uL (0.0-0.3); EOSINOPHILS % (AUTO) 9 % (0-10); HEMATOCRIT 43 % (35-52); HEMOGLOBIN 14.3 g/dL (11.5-16.0); LYMPHOCYTES # (AUTO) 1.2 10^3/uL (1.0-4.0); LYMPHOCYTES % (AUTO) 7 % (12-44); MEAN CORPUSCULAR HEMOGLOBIN 32 pg (25-34); MEAN CORPUSCULAR HGB CONC 33 g/dL (32-36); MEAN CORPUSCULAR VOLUME 95 fL (80-99); MEAN PLATELET VOLUME 12.3 fL (9.0-12.2); MONOCYTES # (AUTO) 1.4 10^3/uL (0.0-1.0); MONOCYTES % (AUTO) 8 % (0-12); NEUTROPHILS # (AUTO) 13.4 10^3/uL (1.8-7.8); NEUTROPHILS % (AUTO) 76 % (42-75); PLATELET COUNT 171 10^3/uL (130-400); WHITE BLOOD COUNT 17.7 10^3/uL (4.3-11.0)
[2021-01-13 11:03] LABS: ALBUMIN 3.5 GM/DL (3.2-4.5)
[2021-01-13 11:04] LABS: CALCIUM 9.1 MG/DL (8.5-10.1)
[2021-01-13 11:06] LABS: TOTAL PROTEIN 6.5 GM/DL (6.4-8.2)
[2021-01-13 11:07] LABS: BILIRUBIN,TOTAL 0.6 MG/DL (0.1-1.0)
[2021-01-13 11:09] LABS: CREATININE SERUM 0.78 MG/DL (0.60-1.30)
[2021-01-13 12:05] LABS: BAND NEUTROPHILS 3 %; BASOPHILS % (MANUAL) 0 %; EOSINOPHILS % (MANUAL) 12 %; LYMPHOCYTES % (MANUAL) 5 %; MONOCYTES % (MANUAL) 7 %; NEUTROPHILS % (MANUAL) 73 %; RBC MORPH NORMAL
[2021-01-13] MEDS ORDERED: NS 100 ML (IVPB) BAG IV ONE (12:30)
[2021-01-13] MEDS ORDERED: HOLD METFORMIN - RECEIVED CONTRAST 20 ML VIAL IV SCH (12:30)
[2021-01-13] MEDS ORDERED: IOHEXOL 350 MG/ML 100 ML (OMNIPAQUE 350) VIAL IV ONE (12:30)
--- NOTE | 2021-01-13 12:56 | Diagnostic Imaging Report ---
PROCEDURE: CT abdomen and pelvis with contrast. TECHNIQUE: Multiple contiguous axial images were obtained through the abdomen and pelvis after administration of intravenous contrast. Auto Exposure Controls were utilized during the CT exam to meet ALARA standards for radiation dose reduction. All CT scans use one or more of the following dose optimizing techniques: automated exposure control, MA and/or KvP adjustment based on patient size and exam type or iterative reconstruction. INDICATION: Increasing back pain and leg pain. Patient has history of lung carcinoma with metastases. COMPARISON is made with recent CT from 12/31/2020. Imaging through lung bases again demonstrates parenchymal masslike densities adjacent to the descending thoracic aorta as well as in the posterior left lower lobe, similar to prior. Numerous liver lesions are similar to the examination several days earlier. Gallbladder is unremarkable. There is no biliary ductal dilatation. Enlarged periportal nodes are again noted. No adrenal mass is detected. Kidneys are stable. Aorta is heavily calcified but nonaneurysmal. There continues to be enlargement to the right psoas muscle. Subtle low density within the psoas muscle is noted similar to prior exam. No definite internal air is present. The left psoas is normal in size. Bowel loops are normal caliber. Soft tissue masslike density with central low density in the right lower quadrant is noted measuring 3.5 x 3.3 cm, similar to several days earlier. The bladder is unremarkable. There is a large amount of artifact through the pelvis from patient's bilateral from patient's right hip prosthesis. There is spinal instrumentation with posterior instrumented fusion extending from L2 to S1. Multiple sclerotic lesions in the lumbar spine are noted consistent with osseous metastatic disease IMPRESSION: Overall stable CT abdomen and pelvis study when compared with exam from 12/31/2020. Enlargement to the right psoas muscle with subtle central low density is similar to prior study and again is suggestive of either psoas abscess or hematoma. No internal gas is present. No new abnormality is identified. Dictated by: Dictated on workstation # [id number]
[2021-01-13] MEDS ORDERED: PIPERACILLIN SODIUM/TAZOBACTAM 4.5 GM in NS (IVPB) 100 ML IV ONE (13:30)
[2021-01-13] MEDS ORDERED: fentaNYL INJ 100 MCG/2 ML AMP IVP ONE (13:45)
[2021-01-13 14:50] LABS: BILIRUBIN,URINE NEGATIVE (NEGATIVE); CLARITY,URINE CLEAR; COLOR,URINE YELLOW; GLUCOSE, URINE (UA) NEGATIVE (NEGATIVE); KETONES,URINE NEGATIVE (NEGATIVE); LEUKOCYTE ESTERASE ,URINE NEGATIVE (NEGATIVE); NITRITE,URINE NEGATIVE (NEGATIVE); PH,URINE 6.5 (5-9); PROTEIN,URINE NEGATIVE (NEGATIVE)
[2021-01-13 15:00] VITALS: BP 134/61
[2021-01-13] MEDS ORDERED: ONDANSETRON 4 MG/2 ML (SDV) Z0FRAN IV PRN (15:00)
[2021-01-13] MEDS ORDERED: HYDROcodone/APAP 7.5 MG/325 MG (LORTAB, LORCET PLUS) TABLET PO PRN (15:00)
[2021-01-13] MEDS ORDERED: VANCOMYCIN 1 GM/NS 250 ML IVPB IV NR ×2 (15:00)
[2021-01-13 15:07] LABS: BACTERIA,URINE NEGATIVE /HPF; RBC,URINE 0-2 /HPF; WBC,URINE 0-2 /HPF
[2021-01-13] MEDS: LACTATED RINGERS 1,000 ML IV SCH (15:17)
[2021-01-13] MEDS: fentaNYL INJ 100 MCG/2 ML AMP IV PRN ×2 (15:25→17:50)
--- NOTE | 2021-01-13 17:56 | CONSULTATION REPORT ---
DATE OF SERVICE: 01/13/2021 ATTENDING PRIMARY CARE PHYSICIAN: Dr. Sarath Briscoe. ADMITTING PHYSICIAN: Dr. Noemy Khan. HISTORY OF PRESENT ILLNESS: The patient is a 75-year-old female, who presented with right hip pain. She has a history of metastatic lung cancer with liver and bony metastasis. She is on pain medication with morphine 100 mg b.i.d. as well as a hydrocodone p.r.n. She also reports that she has had some fevers and chills as well. She states that she did have a CT scan approximately three weeks ago, where a hematoma was identified along the right psoas muscle. A repeat CT scan was performed, which did show the lesion has grown larger in size and is more consistent with an abscess. She also reports increased pain as well as referred pain down the right leg. Interventional radiology has been consulted for placement of a percutaneous drain. PAST MEDICAL HISTORY: Arthritis, degenerative joint disease, non-insulin dependent diabetes, anxiety, and cardiac murmur. PAST SURGICAL HISTORY: Lumbar surgery x4 in 1994, 1987, and 2011, right total hip arthroplasty in 2012, tonsillectomy, appendectomy, section x2, right hemicolectomy 2003, and bilateral knee arthroscopy. ALLERGIES: No known drug allergies. MEDICATIONS: Allopurinol 100 mg daily, cetirizine 10 mg p.r.n., gabapentin 400 mg t.i.d., MS Contin 100 mg b.i.d., and hydrocodone 10 mg q.4 hours p.r.n. SOCIAL HISTORY: Positive smoke 50 pack years. Social alcohol. FAMILY HISTORY: Father, bladder cancer. Mother, ovarian cancer. Brother, colon cancer. REVIEW OF SYSTEMS: This is a thin-appearing female, currently guarded secondary to the pain. She is not experiencing any shortness of breath or difficulty breathing. No chest pain, palpitations or diaphoresis. No nausea or vomiting. No diarrhea or constipation. No intermittent fevers or chills. PHYSICAL EXAMINATION: VITAL SIGNS: Temperature is 37.0, blood pressure 134/61, pulse 50, respirations 22, and pulse ox 99% on room air. CHEST: Scattered rales and rhonchi bilaterally. HEART: Regular and no murmurs. EXTREMITIES: No lower extremity edema and negative Homans sign. HEENT: No scleral icterus. NECK: No cervical lymphadenopathy. ABDOMEN: Soft and nondistended. There is pain in the right lower abdominal quadrant with a fullness to palpation. SKIN: Warm and dry. LABORATORY DATA: WBC 17.7, hemoglobin 14.3, hematocrit 43, platelets 171, BUN 13, and creatinine 0.78. ASSESSMENT AND PLAN: A 75-year-old female with a right psoas abscess, likely secondary to metastatic deposit with resultant hematoma, which became infected. Radiology has been consulted for placement of a drain, which is scheduled for tomorrow. She may follow up with us for drain monitoring and eventual removal. Job ID: [id number] DocumentID: [id number] Dictated Date: 01/13/2021 17:40:05 Plating Tank Operator Apprentice Date: 01/13/2021 17:56:24 Dictated By: ANABELL MAJOR MD MTDD
[2021-01-13 20:27] VITALS: BP 132/61
[2021-01-13] MEDS: morphine ER 100 MG (MS CONTIN) TAB PO SCH (20:46)
[2021-01-13] MEDS: DOCUSATE SODIUM 100 MG (COLACE) CAP PO SCH (20:47)
[2021-01-13] MEDS: ACETAMINOPHEN 500 MG TAB (TYLENOL) PO SCH (20:47)
[2021-01-13] MEDS: PIPERACILLIN/TAZO 4.5 GM/NS 100 ML IV SCH ×2 (20:48)
[2021-01-14] VITALS (9 sets, daily range): BP systolic 130–149; BP diastolic 58–67
[2021-01-14] MEDS: PIPERACILLIN/TAZO 4.5 GM/NS 100 ML IV SCH ×4 (04:03→13:06)
[2021-01-14] MEDS: ACETAMINOPHEN 500 MG TAB (TYLENOL) PO SCH ×2 (04:03→10:11)
[2021-01-14] MEDS: LACTATED RINGERS 1,000 ML IV SCH ×2 (04:04→13:08)
[2021-01-14 05:21] LABS: BASOPHILS # (AUTO) 0.1 10^3/uL (0.0-0.1); BASOPHILS % (AUTO) 1 % (0-10); EOSINOPHILS # (AUTO) 1.5 10^3/uL (0.0-0.3); EOSINOPHILS % (AUTO) 10 % (0-10); HEMATOCRIT 40 % (35-52); HEMOGLOBIN 12.8 g/dL (11.5-16.0); LYMPHOCYTES # (AUTO) 1.3 10^3/uL (1.0-4.0); LYMPHOCYTES % (AUTO) 9 % (12-44); MEAN CORPUSCULAR HEMOGLOBIN 31 pg (25-34); MEAN CORPUSCULAR HGB CONC 32 g/dL (32-36); MEAN CORPUSCULAR VOLUME 96 fL (80-99); MEAN PLATELET VOLUME 12.5 fL (9.0-12.2); MONOCYTES # (AUTO) 1.2 10^3/uL (0.0-1.0); MONOCYTES % (AUTO) 8 % (0-12); NEUTROPHILS # (AUTO) 10.6 10^3/uL (1.8-7.8); NEUTROPHILS % (AUTO) 72 % (42-75); PLATELET COUNT 155 10^3/uL (130-400); WHITE BLOOD COUNT 14.8 10^3/uL (4.3-11.0)
[2021-01-14 05:36] LABS: INR 1.1 (0.8-1.4); PROTHROMBIN TIME PATIENT 14.1 SEC (12.2-14.7)
[2021-01-14 05:48] LABS: POTASSIUM 3.8 MMOL/L (3.6-5.0)
[2021-01-14 05:49] LABS: CALCIUM 8.4 MG/DL (8.5-10.1)
[2021-01-14 05:53] LABS: CREATININE SERUM 0.74 MG/DL (0.60-1.30)
[2021-01-14] MEDS ORDERED: LIDOCAINE 1% INJ 20 ML 20 ML VIAL INJ ONE (08:00)
[2021-01-14] MEDS ORDERED: fentaNYL INJ 100 MCG/2 ML AMP IVP ONE (08:00)
[2021-01-14] MEDS ORDERED: MIDAZOLAM 2 MG/2 ML (VERSED) VIAL IVP ONE (08:00)
[2021-01-14] MEDS: morphine ER 100 MG (MS CONTIN) TAB PO SCH (08:32)
[2021-01-14] MEDS: DOCUSATE SODIUM 100 MG (COLACE) CAP PO SCH (08:32)
[2021-01-14] MEDS ORDERED: fentaNYL INJ 100 MCG/2 ML AMP ONE (10:25)
[2021-01-14] MEDS ORDERED: LIDOCAINE 1% INJ 20 ML 20 ML VIAL ONE (10:25)
[2021-01-14] MEDS ORDERED: MIDAZOLAM 2 MG/2 ML (VERSED) VIAL ONE (10:25)
--- NOTE | 2021-01-14 12:06 | Diagnostic Imaging Report ---
INDICATION: Right psoas muscle enlargement. Patient presents for CT-guided right psoas muscle aspiration and potential biopsy. Patient brought to the CT suite, placed on the table in the left side down decubitus position. Axial imaging through abdomen and pelvis was performed to evaluate appropriate entry site. The procedure was performed utilizing conscious sedation with radiology nursing and constant patient monitoring. Patient was given a total of 100 mcg of fentanyl intravenously and 1 mg of Versed intravenously. Total procedure time was 11 minutes. The posterior right abdomen was prepped and draped in the usual sterile fashion. Small amount 1% lidocaine was utilized for local anesthesia. 18-gauge coaxial Temno needle was advanced and placed with its tip within the enlarged right psoas muscle. Attempted aspiration was performed however no fluid could be obtained. Next, numerous core biopsies of the psoas muscle were obtained. Several of these will be sent for pathology and several additional samples are sent for culture and sensitivity. Needle was withdrawn and hemostasis was obtained. Followup imaging shows no collocating features. Patient tolerated the procedure well and left the department in stable condition. IMPRESSION: Successful CT-guided right psoas muscle aspiration and core biopsy, utilizing conscious sedation. Pathology results and culture results are pending. TECHNIQUE: All CT scans use one or more of the following dose optimizing techniques: automated exposure control, MA and/or KvP adjustment based on patient size and exam type or iterative reconstruction. Dictated by: Dictated on workstation # [id number]
--- NOTE | 2021-01-14 13:13 | Pre-Op Note & Conscious Sedat ---
Pre-Operative Progress Note H&P Reviewed The H&P was reviewed, patient examined and no changes noted. Date H&P Reviewed: Jan 14, 2021 Time H&P Reviewed: 10:00 Pre-Op Diagnosis: psoas abscess Conscious Sedation Pre-Proced Time 10:00 ASA Score 2 For ASA 3 and 4: Consider anesthesia and medical clearance. Also, for patients with a history of failed moderate sedation consider anesthesia. Airway Lungs Heart ASA score ASA 1: a normal healthy patient ASA 2: a patient with a mild systemic disease (mid diabetes, controlled hypertension, obesity ASA 3: a patient with a severe systemic disease that limits activity (angina, COPD, prior Myocardial infarction) ASA 4: a patient with an incapacitating disease that is a constant threat to life (CHF, renal failure) ASA 5: a moribund patient not expected to survive 24 hrs. (ruptured aneurysm) ASA 6: a declared brain- patient whose organs are being harvested. For emergent operations, add the letter E after the classification Mallampati Classification Grade 2 Sedation Plan Analgesia, Amnesia, Plan communicated to team members, Discussed options with patient/fam, Discussed risks with patient/fam The patient is an appropriate candidate to undergo the planned procedure, sedation, and anesthesia. The patient immediately re-assessed prior to indication. MIRIAM FLETCHER MD Jan 14, 2021 13:13
[2021-01-14] MEDS ORDERED: AMOX-358 PO ×2 (14:07)
--- NOTE | 2021-01-14 14:10 | Discharge Summary ---
Discharge Summary Hospital Course Problems/Dx: (1) Psoas muscle abscess Status: Acute (2) Pain of metastatic malignancy Status: Acute Hospital Course Date of Admission: Jan 13, 2021 at 13:11 Admission Diagnosis : Psoas muscle abscess Family Physician/Provider: Sarath Briscoe MD Date of Discharge: 01/14/21 Discharge Diagnosis: Psoas muscle abscess Hospital Course: Gabriela Lock is a 75-year-old male with metastatic lung cancer who was admitted with a psoas muscle abscess. She underwent IR guided biopsy. There was no fluid collection to drain. There is concern that this could be metastasis. She remained stable and was discharged home on Augmentin. Cultures and pathology were pending at the time of discharge. She was continued on her pain regimen for pain of metastatic malignancy. She should follow-up with her primary care physician, Dr. Briscoe. She should also follow-up with her oncologist, Dr. Martinez. Labs and Pending Lab Test: Laboratory Tests 01/13/21 14:30: Urine Color YELLOW, Urine Clarity CLEAR, Urine pH 6.5, Urine Specific [place] <=1.005, Urine Protein NEGATIVE, Urine Glucose (UA) NEGATIVE, Urine Ketones NEGATIVE, Urine Nitrite NEGATIVE, Urine Bilirubin NEGATIVE, Urine Urobilinogen 0.2, Urine Leukocyte Esterase NEGATIVE, Urine RBC (Auto) TRACE-I, Urine RBC 0-2, Urine WBC 0-2, Urine Squamous Epithelial Cells 2-5, Urine Crystals NONE, Urine Bacteria NEGATIVE, Urine Casts NONE, Urine Mucus NEGATIVE, Urine Culture Indicated NO 01/14/21 04:44: White Blood Count 14.8H, Red Blood Count 4.16, Hemoglobin 12.8, Hematocrit 40, Mean Corpuscular Volume 96, Mean Corpuscular Hemoglobin 31, Mean Corpuscular Hemoglobin Concent 32, Red Cell Distribution Width 14.6H, Platelet Count 155, Mean Platelet Volume 12.5H, Immature Granulocyte % (Auto) 1, Neutrophils (%) (Auto) 72, Lymphocytes (%) (Auto) 9L, Monocytes (%) (Auto) 8, Eosinophils (%) (Auto) 10, Basophils (%) (Auto) 1, Neutrophils # (Auto) 10.6H, Lymphocytes # (Auto) 1.3, Monocytes # (Auto) 1.2H, Eosinophils # (Auto) 1.5H, Basophils # (Auto) 0.1, Immature Granulocyte # (Auto) 0.1, Prothrombin Time 14.1, INR Comment 1.1, Sodium Level 141, Potassium Level 3.8, Chloride Level 106, Carbon Dioxide Level 24, Anion Gap 11, Blood Urea Nitrogen 9, Creatinine 0.74, Estimat Glomerular Filtration Rate 77, BUN/Creatinine Ratio 12, Glucose Level 72, Calcium Level 8.4L Home Meds Active Augmentin 875-125 Tablet (Amoxicillin/Potassium Clav) 1 Each Tablet 1 Each PO BID 7 Days Oxycontin (Oxycodone HCl) 40 Mg Tab.er.12h 40 Mg PO BID 7 Days Allopurinol 100 Mg Tablet 100 Mg PO DAILY 30 Days Prednisone 10 Mg Tab.ds.pk 10 Mg PO DAILY Take 6 tabs(60mg)daily,decrease by 1 tab(10MG)daily. Oxycodone HCl 10 Mg Tablet 10 Mg PO Q4H PRN 7 Days Oxycontin (Oxycodone HCl) 30 Mg Tab.er.12h 30 Mg PO BID 7 Days Tylenol (Acetaminophen) 325 Mg Capsule 975 Mg PO TID 7 Days Reported Tums Ultra (Calcium Carbonate) 400 Mg Tab.chew 800 Mg PO PRN PRN Advil (Ibuprofen) 200 Mg Tablet 400 Mg PO Q6H PRN Zyrtec (Cetirizine HCl) 10 Mg Tablet 10 Mg PO DAILY PRN Betamethasone Dp Aug 0.05% Crm (Betamethasone/Propylene Glyc) 15 Gm Cream..g. 1 Applic TOP DAILY PRN APPLY TO HANDS AND FEET Gabapentin 400 Mg Capsule 400 Mg PO TID Assessment/Pt Instructions Take medications as prescribed. Complete your course of antibiotics even if you are feeling better. Follow-up with your primary care physician, Dr. Briscoe. Follow-up with your oncologist, Dr. Serrano. Return with worsening pain or if you feel like you are getting worse. Discharge Planning: <30 minutes discharge planning Discharge Instructions Discharge Diet: No Restrictions Activity as Tolerated: Yes Consultations Interventional radiology Discharge Physical Examination Vital Signs Vital Signs Date Time Temp Pulse Resp B/P (MAP) Pulse Ox O2 Delivery O2 Flow Rate FiO2 01/14/21 12:00 36.6 50 18 135/58 (83) 98 Room Air 01/14/21 11:10 2.00 General Appearance: No Apparent Distress, Anxious, Thin HEENT: PERRL/EOMI, Pharynx Normal Respiratory: Lungs Clear, Normal Breath Sounds, No Respiratory Distress Cardiovascular: Regular Rate, Rhythm, No Edema, No Murmur Gastrointestinal: Normal Bowel Sounds, Non Tender, Soft Extremity: Normal Inspection, Non Tender, No Pedal Edema Skin: Normal Color, Warm/Dry Neurologic/Psychiatric: Alert, Oriented x3, No Motor/Sensory Deficits Allergies: Coded Allergies: Sulfa (Sulfonamide Antibiotics) (Unverified Allergy, Mild, HIVES, SWELLING AND ITCHING, 07/08/19) Copy Copies To 1: SUNG MARTINEZ Discharge Summary Date of Admission Jan 13, 2021 at 13:11 Date of Discharge Discharge Date: Jan 14, 2021 Discharge Time: 14:08 Admission Diagnosis Psoas muscle abscess Consults/Procedures Consulations Interventional radiology Discharge Diagnosis (1) Psoas muscle abscess Status: Acute (2) Pain of metastatic malignancy Status: Acute MANNY CANELA MD Jan 14, 2021 14:10
[2021-01-14] MEDS ORDERED: VANCOMYCIN 750 MG/NS 250 ML IVPB IV SCH ×2 (15:00)
[2021-01-15] MEDS ORDERED: TROUGH ORDER-PHARMACY XX NR (14:00)
== END 2021-01-14 14:02 | disposition home or self-care (01) ==
LOC: EDUNIT# 10:25 → ER 10:27 → 4TH 13:11 → UNDOADMOB 13:11 → 4TH 15:00 → UNDODISOB 01-14 15:41
PROVIDERS: ADMIT Internal Medicine; ATTEND Internal Medicine
DX: K68.12 Psoas muscle abscess (principal); E11.49 Type 2 diabetes mellitus with other diabetic neurological complication; G89.3 Neoplasm related pain (acute) (chronic); C34.90 Malignant neoplasm of unspecified part of unspecified bronchus or lung; C79.51 Secondary malignant neoplasm of bone; C78.7 Secondary malignant neoplasm of liver and intrahepatic bile duct; M06.9 Rheumatoid arthritis, unspecified; J44.9 Chronic obstructive pulmonary disease, unspecified; F41.9 Anxiety disorder, unspecified; Z96.641 Presence of right artificial hip joint; Z98.890 Other specified postprocedural states; Z79.2 Long term (current) use of antibiotics; Z79.891 Long term (current) use of opiate analgesic; Z79.899 Other long term (current) drug therapy; Z88.2 Allergy status to sulfonamides; Z79.1 Long term (current) use of non-steroidal anti-inflammatories (NSAID)
CPT/HCPCS: 20206; 74177; 77012; 80048; 80053; 81000; 83605; 84145; 85007; 85025; 85027; 85610; 87040; 87070; 87075; 87101; 87205; 96361; 96365; 96375; 99156; 99284; G0378; 36415; 88305; 88342

== ENCOUNTER 2021-02-04 15:14 | Emergency (ER) | payer MEDICARE, OTHER ==
[~2021-02-04] VITALS: Ht 172 cm; Wt 49.0 kg
[~2021-02-04 15:14] MED LIST changes: +AMOX-358 PO
--- NOTE | 2021-02-04 16:27 | ED Abdominal Pain ---
General Chief Complaint: Abdominal/GI Problems Stated Complaint: R LEG PAIN/ABD PAIN Nursing Triage Note: Pt c/o R sided abd pain and R leg pain. Pt has chronic leg pain from radiation treatments but reports pain is much worse today. Pt reports abd pain x2-3 days Source of Information: Patient, Family Exam Limitations: No Limitations History of Present Illness Date Seen by Provider: Feb 04, 2021 Time Seen by Provider: 16:00 Initial Comments Patient is a 75-year-old female who presents to the emergency department today with a chief complaint of abdominal discomfort, slow bowel movements, concern for bowel obstruction also increasing right hip pain radiating down her right leg to her knee and posterior calf. 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 She was recently in the hospital and underwent right psoas muscle mass biopsy that showed tumor necrosis. Patient states that she has been taking her 100 mg of morphine twice a day with oxycodone for breakthrough pain without any relief of symptoms. She denies any associated symptoms of nausea, vomiting, fevers. No black or bloody stools. No problems with urination. She states anytime she moves the right hip she has intense pain and she has been unable to alleviate with her home pain medications. Son-in-law is at the bedside and is concerned for some degree of dehydration. No Covid concerns, the patient is Covid vaccinated. All other review of systems reviewed and negative except as stated. Timing/Duration: 1 Week (Symptoms worsening over the last week since the pat ient underwent radiation treatments last , Sunday and this past Sunday) Severity/Quality: Burning, Cramping Location: RLQ, Other (Right hip) Radiation: Other (Right thigh, right calf) Activities at Onset: None Associated Symptoms: Denies Symptoms Allergies and Home Medications Allergies Coded Allergies: Sulfa (Sulfonamide Antibiotics) (Unverified Allergy, Mild, HIVES, SWELLING AND ITCHING, 07/08/19) Patient Home Medication List Home Medication List Reviewed: Yes Acetaminophen (Tylenol) 325 Mg Capsule, 975 MG PO TID Prescribed by: MANNY CANELA on 07/02/19 1031 Allopurinol (Allopurinol) 100 Mg Tablet, 100 MG PO DAILY Prescribed by: MANNY CANELA on 07/06/19 1243 Amoxicillin/Potassium Clav (Augmentin 875-125 Tablet) 1 Each Tablet, 1 EACH PO BID Prescribed by: MANNY CANELA on 01/14/21 1407 Betamethasone/Propylene Glyc (Betamethasone Dp Aug 0.05% Crm) 15 Gm Cream..g., 1 APPLIC TOP DAILY PRN for RASH, (Reported) Entered as Reported by: SAMY LEWIS on 07/01/19 152 Calcium Carbonate (Tums Ultra) 400 Mg Tab.chew, 800 MG PO PRN PRN for IND IGESTION, (Reported) Entered as Reported by: SAMY LEWIS on 07/01/19 152 Cetirizine HCl (Zyrtec) 10 Mg Tablet, 10 MG PO DAILY PRN for ALLERGY SYMPTOMS, (Reported) Entered as Reported by: SAMY LEWIS on 07/01/19 152 Gabapentin (Gabapentin) 400 Mg Capsule, 400 MG PO TID, (Reported) Entered as Reported by: SAMY LEWIS on 07/01/19 152 Ibuprofen (Advil) 200 Mg Tablet, 400 MG PO Q6H PRN for PAIN-MILD (1-4), (Reported) Entered as Reported by: SAMY LEWIS on 07/01/19 152 Oxycodone HCl (Oxycontin) 30 Mg Tab.er.12h, 30 MG PO BID Prescribed by: MANNY CANELA on 07/06/19 1023 Oxycodone HCl (Oxycodone HCl) 10 Mg Tablet, 10 MG PO Q4H PRN for PAIN-SEVERE (8- 10) Prescribed by: MANNY CANELA on 07/06/19 1023 Oxycodone HCl (Oxycontin) 40 Mg Tab.er.12h, 40 MG PO BID Prescribed by: MAINE KUMAR on 07/29/19 1210 Review of Systems Review of Systems Constitutional: see HPI EENTM: No Symptoms Reported Respiratory: No Symptoms Reported Cardiovascular: No Symptoms Reported Gastrointestinal: No Symptoms Reported Genitourinary: No Symptoms Reported Musculoskeletal: joint pain (right hip) Skin: no symptoms reported Psychiatric/Neurological: No Symptoms Reported, Other (No loss of bowel or bladder function, no retention. Patient reports she had a bowel movement before coming to the ER) All Other Systems Reviewed Negative Unless Noted: Yes Past Emmwbmg-Moacoq-Whnmkd Hx Patient Social History Tobacco Use?: Yes Smoking Status: Current Everyday Smoker Substance use?: No Alcohol Use?: No Immunizations Up To Date First/Initial COVID19 Vaccinat: August 2020 Second COVID19 Vaccination Dany: August 2020 Third COVID19 Vaccination Date: AUGUST COVID19 Vaccine New Media Strategist: Lydia Seasonal Allergies Seasonal Allergies: No Past Medical History Surgery/Hospitalization HX: lunch cancer, mets to abdomen Surgeries: Yes (colon resection) Abdominal, Appendectomy, Hysterectomy, Joint Replacement, Neurological, Orthopedic Respiratory: Yes (METASTATIC LUNG CANCER DX 05/2019; NOCTURNAL HYPOXIA-NEW DX. 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 Genitourinary: No Gastrointestinal: Yes Diverticulosis Musculoskeletal: Yes Degenerate Disk Disease, Arthritis, Rheumatoid Arthritis, Chronic Back Pain Endocrine: Yes Diabetes, Non-Insulin dep HEENT: No Cancer: Yes (METASTATIC LUNG CANCER--TO BONE, WIDESPREAD) Bone, Lung Did You Recieve Any Treatments: No Psychosocial: Yes (SINCE CA DX) Anxiety Integumentary: No Blood Disorders: No Family Medical History Neoplasm 19 FATHER (BLADDER CANCER) 19 MOTHER (OVARIAN CANCER) G8 BROTHER (COLON CANCER) G8 SISTER (BACK AND LUNG CANCER) PSH: - X 2 -HYSTERECTOMY/BSO FOR DUB -APPENDECTOMY -COLON RESECTION FOR DIVERTICULITIS -BACK SURGERY X 4 -BILATERAL KNEE SCOPES -RIGHT HIP REPLACEMENT DUE TO ARTHRITIS Physical Exam Vital Signs Vital Signs - First Documented 02/04/21 15:19 Pulse 110 Resp 18 B/P (MAP) 96/65 (75) O2 Delivery Room Air Capillary Refill : Less Than 3 Seconds Height/Weight/BMI Height: '" Weight: lbs. oz. kg; 16.00 BMI Method: General Appearance: no apparent distress, cachetic HEENT: PERRL/EOMI Respiratory: lungs clear, normal breath sounds, no respiratory distress, no accessory muscle use Cardiovascular: regular rate, rhythm Gastrointestinal: normal bowel sounds, non tender, soft; No tenderness Extremities: other (tenderness to manilpulation of the right hip; decreased ROM secondary to pain; NVI to RLE; no calf tenderness or swelling is noted; no overlying rashes to the right hip or thigh) Back: normal inspection, vertebral tenderness (mid thoracic (chronic)) Neurologic/Psychiatric: alert, normal mood/affect, oriented x 3 Skin: normal color, warm/dry Progress/Results/Core Measures Results/Orders My Orders Orders - IVANNA SCHULTE MD Ns Iv 1000 Ml (Sodium Chloride 0.9%) (02/04/21 16:30) Ketamine Injection (Ketalar Injection) (02/04/21 16:45) Medications Given in ED Current Medications Medications Dose Ordered Sig/Cosme Route Start Time Stop Time Status Last Admin Dose Admin Ketamine HCl 25 mg ONCE ONCE IV 02/04/21 16:45 02/04/21 16:46 DC 02/04/21 16:53 25 MG Vital Signs/I&O 02/04/21 15:19 Pulse 110 Resp 18 B/P (MAP) 96/65 (75) O2 Delivery Room Air Blood Pressure Mean: 75 Progress Progress Note : Time: 17:55 Progress Note Patient reevaluated, she has about 200 cc of her normal saline/ketamine infusion, she is currently feeling no pain. She is laying comfortably on her back, chatty, smiley and interactive. She looks completely different than when I first evaluated her and she was in 10 out of 10 pain laying on her left hip u nable to move. I talked extensively to her son about possibly increasing her gabapentin dosing at home. He is not really aware of what her current dose is but states that she only takes it at night. I advised him that that medication can be dosed multiple times a day however to talk to her cancer doctor about why she is only on it once a day. I suspect it may be secondary to some possible interactions with her chronic opiates. Again patient has no clinical or objective findings to warrant further testing from the emergency department. I believe our end goal was just pain management at this visit. She has no fevers, chills, change in cough, nausea, vomiting, diarrhea or other infectious symptoms. Patient will be sent home to resume her prior pain medication regimen. All questions are sought and answered. Patient is stable for discharge. Departure Impression Primary Impression: Acute exacerbation of chronic low back pain Additional Impression: Radicular pain of right lower extremity Disposition: HOME, SELF-CARE Condition: Stable Departure-Patient Inst. Decision time for Depature: 18:02 Referrals: SAGE VICTORIA MD (PCP/Family) Primary Care Physician Patient Instructions: Chronic Pain Add. Discharge Instructions: Continue your current pain medication regimen. Stool softeners, mag citrate, prune juice or dried prunes to help with constipation symptoms. Please follow-up with your cancer physician regarding your gabapentin dosing, you may be able to increase the number of times a day you take this medication. Come back to the emergency room for any fevers, nausea and vomiting, loss of ability to move the right leg or any other emergent concerning symptoms. IVANNA SCHULTE MD Feb 04, 2021 16:27
[2021-02-04] MEDS ORDERED: HYDROmorphone 2 MG/ML VIAL (DILAUDID) IV ONE (16:30)
[2021-02-04] MEDS ORDERED: NS IV 1000 ML 1,000 ML IV SCH (16:30)
[2021-02-04] MEDS ORDERED: KETAMINE HCL 100 MG/ML 5 ML VIAL IV ONE (16:45)
[2021-02-04 18:09] VITALS: BP 107/68
== END 2021-02-04 18:11 | disposition home or self-care (01) ==
LOC: EDUNIT# 15:14 → ER 15:16
DX: G89.29 Other chronic pain (principal); M54.50 Low back pain, unspecified; M54.10 Radiculopathy, site unspecified; J44.9 Chronic obstructive pulmonary disease, unspecified; E11.9 Type 2 diabetes mellitus without complications

== ENCOUNTER 2021-02-07 15:05 | Outpatient (RCR) | payer MEDICARE, OTHER ==
[2020-11-15 13:54] LABS: BASOPHILS % (AUTO) 1 % (0-10); EOSINOPHILS # (AUTO) 0.6 10^3/uL (0.0-0.3); EOSINOPHILS % (AUTO) 8 % (0-10); HEMATOCRIT 44 % (35-52); HEMOGLOBIN 14.1 g/dL (11.5-16.0); LYMPHOCYTES # (AUTO) 1.3 10^3/uL (1.0-4.0); LYMPHOCYTES % (AUTO) 17 % (12-44); MEAN CORPUSCULAR HEMOGLOBIN 33 pg (25-34); MEAN CORPUSCULAR HGB CONC 32 g/dL (32-36); MEAN CORPUSCULAR VOLUME 101 fL (80-99); MEAN PLATELET VOLUME 11.1 fL (9.0-12.2); MONOCYTES # (AUTO) 0.6 10^3/uL (0.0-1.0); MONOCYTES % (AUTO) 8 % (0-12); NEUTROPHILS % (AUTO) 66 % (42-75); PLATELET COUNT 164 10^3/uL (130-400); WHITE BLOOD COUNT 7.6 10^3/uL (4.3-11.0)
[2020-11-15 14:12] LABS: ALBUMIN 3.6 GM/DL (3.2-4.5); BILIRUBIN,TOTAL 0.5 MG/DL (0.1-1.0); CALCIUM 8.2 MG/DL (8.5-10.1); CREATININE SERUM 0.72 MG/DL (0.60-1.30); POTASSIUM 3.4 MMOL/L (3.6-5.0); TOTAL PROTEIN 6.5 GM/DL (6.4-8.2)
[2020-11-15 14:57] LABS: BILIRUBIN,URINE NEGATIVE (NEGATIVE); CLARITY,URINE CLEAR; COLOR,URINE DARK YELLOW; GLUCOSE, URINE (UA) NEGATIVE (NEGATIVE); KETONES,URINE NEGATIVE (NEGATIVE); LEUKOCYTE ESTERASE ,URINE NEGATIVE (NEGATIVE); NITRITE,URINE NEGATIVE (NEGATIVE); PROTEIN,URINE NEGATIVE (NEGATIVE)
[2020-11-15 15:04] LABS: BACTERIA,URINE TRACE /HPF; RBC,URINE RARE /HPF
[2020-12-07 14:01] LABS: BASOPHILS # (AUTO) 0.1 10^3/uL (0.0-0.1); BASOPHILS % (AUTO) 1 % (0-10); EOSINOPHILS # (AUTO) 0.8 10^3/uL (0.0-0.3); EOSINOPHILS % (AUTO) 8 % (0-10); HEMATOCRIT 45 % (35-52); HEMOGLOBIN 14.8 g/dL (11.5-16.0); LYMPHOCYTES # (AUTO) 1.5 10^3/uL (1.0-4.0); LYMPHOCYTES % (AUTO) 16 % (12-44); MEAN CORPUSCULAR HEMOGLOBIN 32 pg (25-34); MEAN CORPUSCULAR HGB CONC 33 g/dL (32-36); MEAN CORPUSCULAR VOLUME 97 fL (80-99); MEAN PLATELET VOLUME 11.4 fL (9.0-12.2); MONOCYTES # (AUTO) 0.6 10^3/uL (0.0-1.0); MONOCYTES % (AUTO) 7 % (0-12); NEUTROPHILS # (AUTO) 6.3 10^3/uL (1.8-7.8); NEUTROPHILS % (AUTO) 69 % (42-75); PLATELET COUNT 159 10^3/uL (130-400); WHITE BLOOD COUNT 9.3 10^3/uL (4.3-11.0)
[2020-12-07 14:18] LABS: ALBUMIN 3.7 GM/DL (3.2-4.5); BILIRUBIN,TOTAL 0.4 MG/DL (0.1-1.0); CREATININE SERUM 0.72 MG/DL (0.60-1.30); POTASSIUM 3.3 MMOL/L (3.6-5.0); TOTAL PROTEIN 6.7 GM/DL (6.4-8.2)
[2020-12-28 14:50] LABS: BASOPHILS # (AUTO) 0.1 10^3/uL (0.0-0.1); BASOPHILS % (AUTO) 0 % (0-10); EOSINOPHILS # (AUTO) 1.2 10^3/uL (0.0-0.3); EOSINOPHILS % (AUTO) 10 % (0-10); HEMATOCRIT 44 % (35-52); HEMOGLOBIN 14.1 g/dL (11.5-16.0); LYMPHOCYTES # (AUTO) 1.5 10^3/uL (1.0-4.0); LYMPHOCYTES % (AUTO) 12 % (12-44); MEAN CORPUSCULAR HEMOGLOBIN 32 pg (25-34); MEAN CORPUSCULAR HGB CONC 32 g/dL (32-36); MEAN CORPUSCULAR VOLUME 98 fL (80-99); MEAN PLATELET VOLUME 11.4 fL (9.0-12.2); MONOCYTES % (AUTO) 8 % (0-12); NEUTROPHILS # (AUTO) 8.7 10^3/uL (1.8-7.8); NEUTROPHILS % (AUTO) 70 % (42-75); PLATELET COUNT 172 10^3/uL (130-400); WHITE BLOOD COUNT 12.6 10^3/uL (4.3-11.0)
[2020-12-28 15:10] LABS: ALBUMIN 3.6 GM/DL (3.2-4.5); BILIRUBIN,TOTAL 0.5 MG/DL (0.1-1.0); CREATININE SERUM 0.74 MG/DL (0.60-1.30); POTASSIUM 4.2 MMOL/L (3.6-5.0); TOTAL PROTEIN 6.4 GM/DL (6.4-8.2)
[2021-01-24 12:06] LABS: BASOPHILS # (AUTO) 0.1 10^3/uL (0.0-0.1); BASOPHILS % (AUTO) 0 % (0-10); EOSINOPHILS # (AUTO) 1.7 10^3/uL (0.0-0.3); EOSINOPHILS % (AUTO) 10 % (0-10); HEMATOCRIT 40 % (35-52); LYMPHOCYTES # (AUTO) 1.3 10^3/uL (1.0-4.0); LYMPHOCYTES % (AUTO) 7 % (12-44); MEAN CORPUSCULAR HEMOGLOBIN 31 pg (25-34); MEAN CORPUSCULAR HGB CONC 33 g/dL (32-36); MEAN CORPUSCULAR VOLUME 96 fL (80-99); MEAN PLATELET VOLUME 12.8 fL (9.0-12.2); MONOCYTES # (AUTO) 1.4 10^3/uL (0.0-1.0); MONOCYTES % (AUTO) 8 % (0-12); NEUTROPHILS # (AUTO) 12.7 10^3/uL (1.8-7.8); NEUTROPHILS % (AUTO) 73 % (42-75); PLATELET COUNT 140 10^3/uL (130-400); WHITE BLOOD COUNT 17.3 10^3/uL (4.3-11.0)
[2021-01-24 12:46] LABS: ALBUMIN 3.4 GM/DL (3.2-4.5); BILIRUBIN,TOTAL 0.5 MG/DL (0.1-1.0); CALCIUM 8.8 MG/DL (8.5-10.1); CREATININE SERUM 0.67 MG/DL (0.60-1.30); POTASSIUM 3.7 MMOL/L (3.6-5.0); TOTAL PROTEIN 6.5 GM/DL (6.4-8.2)
[~2021-02-07 15:05] MED LIST changes: +CATHETER FLUSH 10 ML SYR IV PRN; +HOLD METFORMIN - RECEIVED CONTRAST 20 ML VIAL IV SCH; +IOHEXOL 350 MG/ML 100 ML (OMNIPAQUE 350) VIAL IV ONE; +NS 100 ML (IVPB) BAG IV ONE; +NS IV 1000 ML (CANCER CTR) IV SCH; +NS IV 500 ML (CANCER CENTER) 500 ML ONE; +NS IV SCH; +PEMBROLIZUMAB 200 MG in NS (IVPB) CANCER CENTER 50 ML IV SCH; +ZOLEDRONIC ACID IV SCH; +fentaNYL INJ 100 MCG/2 ML (CANCER CENTER) INJ NR; +fentaNYL INJ 100 MCG/2 ML (CANCER CENTER) ONE; +morphine INJ 4 MG/ML 1 ML (CANCER CTR) IV PRN; +morphine INJ 4 MG/ML 1 ML (CANCER CTR) ONE
[2021-02-07 15:20] LABS: MEAN CORPUSCULAR VOLUME 96 fL (80-99)
[2021-02-07 15:22] LABS: BASOPHILS # (AUTO) 0.1 10^3/uL (0.0-0.1); BASOPHILS % (AUTO) 0 % (0-10); EOSINOPHILS # (AUTO) 1.4 10^3/uL (0.0-0.3); EOSINOPHILS % (AUTO) 8 % (0-10); HEMATOCRIT 39 % (35-52); HEMOGLOBIN 12.6 g/dL (11.5-16.0); LYMPHOCYTES # (AUTO) 1.5 10^3/uL (1.0-4.0); LYMPHOCYTES % (AUTO) 8 % (12-44); MEAN CORPUSCULAR HEMOGLOBIN 31 pg (25-34); MEAN CORPUSCULAR HGB CONC 32 g/dL (32-36); MEAN PLATELET VOLUME 13.4 fL (9.0-12.2); MONOCYTES # (AUTO) 1.2 10^3/uL (0.0-1.0); MONOCYTES % (AUTO) 7 % (0-12); NEUTROPHILS % (AUTO) 75 % (42-75); PLATELET COUNT 161 10^3/uL (130-400); WHITE BLOOD COUNT 17.2 10^3/uL (4.3-11.0)
[2021-02-07 15:41] LABS: ALBUMIN 3.6 GM/DL (3.2-4.5); BILIRUBIN,TOTAL 0.5 MG/DL (0.1-1.0); CALCIUM 9.5 MG/DL (8.5-10.1); CREATININE SERUM 0.76 MG/DL (0.60-1.30); POTASSIUM 4.1 MMOL/L (3.6-5.0); TOTAL PROTEIN 6.9 GM/DL (6.4-8.2)
[2021-02-07 16:08] LABS: BILIRUBIN,URINE NEGATIVE (NEGATIVE); CLARITY,URINE CLEAR; COLOR,URINE YELLOW; GLUCOSE, URINE (UA) NEGATIVE (NEGATIVE); KETONES,URINE NEGATIVE (NEGATIVE); LEUKOCYTE ESTERASE ,URINE NEGATIVE (NEGATIVE); NITRITE,URINE NEGATIVE (NEGATIVE); PROTEIN,URINE NEGATIVE (NEGATIVE)
[2021-02-07 16:16] LABS: BACTERIA,URINE NEGATIVE /HPF; SQUAMOUS EPITHELIAL CELL,UR 0-2 /HPF
== END 2021-02-13 | disposition home or self-care (01) ==
LOC: ONC 15:05
PROVIDERS: ATTEND Internal Medicine Hematology & Oncology
DX: Z51.11 Encounter for antineoplastic chemotherapy (principal); Z45.2 Encounter for adjustment and management of vascular access device; C34.32 Malignant neoplasm of lower lobe, left bronchus or lung; C79.51 Secondary malignant neoplasm of bone; C78.7 Secondary malignant neoplasm of liver and intrahepatic bile duct; D64.1 Secondary sideroblastic anemia due to disease; Z92.21 Personal history of antineoplastic chemotherapy; Z92.3 Personal history of irradiation
CPT/HCPCS: 80053; 81000; 84443; 85025; 96413; G0463; 36591; 71260; 74178; 77290; 77300; 77301; 77334; 77338; 77386; 77470; 78306; 96361; 96365; 96374; 96375; 99214

== ENCOUNTER → 2021-02-28 | Outpatient (CLI) | payer MEDICARE, OTHER ==
[~2021-02-28] MED LIST changes: +BARIUM SUSPENSION 2.1% (VANILLA SILQ) 450 ML PO ONE; -CATHETER FLUSH 10 ML SYR IV PRN; -NS IV 1000 ML (CANCER CTR) IV SCH; -NS IV 500 ML (CANCER CENTER) 500 ML ONE; -NS IV SCH; -PEMBROLIZUMAB 200 MG in NS (IVPB) CANCER CENTER 50 ML IV SCH; -ZOLEDRONIC ACID IV SCH; -fentaNYL INJ 100 MCG/2 ML (CANCER CENTER) INJ NR; -fentaNYL INJ 100 MCG/2 ML (CANCER CENTER) ONE; -morphine INJ 4 MG/ML 1 ML (CANCER CTR) IV PRN; -morphine INJ 4 MG/ML 1 ML (CANCER CTR) ONE
--- NOTE | 2021-02-28 13:31 | Diagnostic Imaging Report ---
PROCEDURE: CT chest with contrast, CT abdomen and pelvis with and without contrast. TECHNIQUE: Pre and post intravenous contrast axial imaging of the abdomen and pelvis and post contrast axial imaging of the chest were performed. Auto Exposure Controls were utilized during the CT exam to meet ALARA standards for radiation dose reduction. INDICATION: Lung carcinoma, followup. COMPARISON: 12/31/2020. FINDINGS: CT CHEST: A right chest wall port has the tip in the SVC. No axillary lymphadenopathy is detected. No definite mediastinal or hilar lymphadenopathy is identified. The area of low density in the left infrahilar location adjacent to the descending thoracic aorta measures 2.0 x 1.7 cm compared with 2.2 x 1.7 cm on the prior exam. No pericardial fluid is identified. There is some trace pleural fluid or pleural thickening on the left, similar to the prior exam. The density adjacent to the major fissure in the posterior left upper lobe appears stable at 6 mm. The elongated density in the left lower lobe measures 1.9 x 0.5 cm compared with 1.8 x 0.6 cm. The left lower lobe mass-like density posteriorly measures 2.7 x 1.7 cm compared with 3.2 x 1.7 cm on the prior exam. No new abnormality is detected. Osteoblastic lesions in the thoracic vertebrae appear similar. CT ABDOMEN/PELVIS: The partially calcified nodule in the dome of the right lobe of the liver is stable at 1.2 cm. The partially calcified nodule more laterally in the right lobe of the liver appears to be fairly stable at 1.8 cm compared with 1.7 cm. The noncalcified low-density nodule in the central right lobe measures 1.4 cm compared with 1.6 cm. No new liver lesion is seen. The gallbladder is unremarkable. The pancreas and spleen are unremarkable. Periportal lymphadenopathy does appear to be increased since the prior exam. The adenopathy measures approximately 4.5 x 2.8 cm. When measured by the same technique, the prior measurement was approximately 4.2 x 2.0 cm. No adrenal mass is seen. The kidneys are stable. The aorta is heavily calcified but nonaneurysmal. There continues to be enlargement of the right psoas muscle which does contain central low density. The area of low-density measures 4.6 x 4.3 cm compared with approximately 4.4 x 3.6 cm previously. The bowel loops are of normal caliber. There is no obstruction. There is diverticulosis of the descending and sigmoid colon. The bladder is unremarkable. Severe degenerative changes to the left hip are noted. The right hip shows total arthroplasty. There are postop changes in the lumbar spine from posterior instrumented fusion. There are some sclerotic foci in the lumbar spine as well as in the right iliac bone and left femoral head, consistent with osteoblastic metastases. These are similar to the prior exam. IMPRESSION: 1. Overall stable pulmonary parenchymal lesions and lesion adjacent to the descending aorta when compared to the prior study from 12/31/2020. 2. Stable liver lesions. Periportal lymphadenopathy does appear to be increased. The low-density enlargement of the right psoas muscle persists and may be slightly increased as well. This again could represent an abscess or hematoma although involvement by metastatic disease cannot be entirely excluded. 3. Stable osteoblastic metastases. Dictated by: Dictated on workstation # [id number]
--- NOTE | 2021-02-28 15:55 | Diagnostic Imaging Report ---
INDICATION: Lung cancer and pain. The patient was administered 24.5 mCi technetium 99m MDP intravenously and whole-body imaging was performed after a 3 hour delay. COMPARISON is made with prior bone scan from 12/31/2020. Uptake of activity by the axial and appendicular skeleton is noted. There is uptake by the kidneys with excretion into the urinary bladder. Uptake in the distal right femoral shaft appears similar to prior exam. Uptake in the lower lumbar spine at approximately L5 appears similar to prior exam. The uptake in the midthoracic spine appears less prominent on today's study. No new foci are seen. There is mild uptake involving the lateral portion of the right approximately 4th rib. IMPRESSION: Overall stable whole body bone scan when compared with examination from 12/31/2020. Dictated by: Dictated on workstation # [id number]
== END ==
LOC: CARD 11:00
PROVIDERS: ATTEND Nurse Practitioner Adult Health
DX: C34.32 Malignant neoplasm of lower lobe, left bronchus or lung (principal); C78.7 Secondary malignant neoplasm of liver and intrahepatic bile duct; C79.51 Secondary malignant neoplasm of bone
CPT/HCPCS: 71260; 74178; 78306; A9503

== ENCOUNTER → 2021-03-08 | Outpatient (CLI) | payer MEDICARE, OTHER ==
[~2021-03-08] MED LIST changes: -BARIUM SUSPENSION 2.1% (VANILLA SILQ) 450 ML PO ONE; -HOLD METFORMIN - RECEIVED CONTRAST 20 ML VIAL IV SCH; -IOHEXOL 350 MG/ML 100 ML (OMNIPAQUE 350) VIAL IV ONE; -NS 100 ML (IVPB) BAG IV ONE
--- NOTE | 2021-03-08 15:56 | Diagnostic Imaging Report ---
INDICATION: Malignant neoplasm of the left lower lung. This is initial staging. Serum blood glucose level at the time of injection is 102 mg/dL. Patient was administered 14.7 mCi [id number] intravenously in the left antecubital location and PET imaging was performed from the top of the skull to mid thighs. Noncontrast CT was also performed for attenuation correction and anatomic correlation. No prior PET/CT studies are available for comparison. Comparison is made with recent CT of the chest, abdomen and pelvis from 02/28/2021. There is symmetric activity throughout the brain. There is some mild low-level activity in the right neck but no corresponding mass is identified. There is a large hypermetabolic mass in the mediastinum, anterior to the descending thoracic aorta and posterior to the left atrium with an SUV max of approximately 9.6. There is low level activity involving the area of mass or consolidation in the posterior left lower lobe with an SUV max of 3.0. There is some uptake within a lesion in the dome of the liver with an SUV max of 3.0. There is significant hypermetabolic lymphadenopathy in the periportal location with an SUV max approximately 9. There is also central retroperitoneal hypermetabolism with a right para-aortic node showing an SUV max of 8.8. There is hypermetabolic activity associated with the enlarged right psoas muscle. This muscle has centrally low density consistent with necrosis but margins do appear to be hypermetabolic measuring up to 7.4. Hypermetabolic right obturator node demonstrates an SUV max of 7.5. There are numerous osseous hypermetabolic lesions. Osseous lesions within the sternum and right humerus are noted. There are lesions within the thoracic spine. A lesion in the spinous process at approximately the T12 level with juan carlos-osseous abnormal soft tissue is hypermetabolic with an SUV max of 8.4. There appear to be lesions in the lumbar spine as well as the sacrum. IMPRESSION: 1. Numerous hypermetabolic lesions involving osseous structures consistent with osseous metastatic disease. There is hypermetabolism involving a mass in the mediastinum. No significant pulmonary parenchymal uptake is seen. There is significant abnormal hypermetabolism involving lymph nodes in the periportal region as well as central retroperitoneum as well as the pelvis. There is a hypermetabolic lesion in the liver. Dictated by: Dictated on workstation # [id number]
== END ==
LOC: RAD 12:00
PROVIDERS: ATTEND Nurse Practitioner Adult Health
DX: C34.32 Malignant neoplasm of lower lobe, left bronchus or lung (principal); C78.7 Secondary malignant neoplasm of liver and intrahepatic bile duct; C79.51 Secondary malignant neoplasm of bone
CPT/HCPCS: 78815; A9552

== ENCOUNTER 2021-04-04 11:44 | Observation (INO) | payer MEDICARE ==
[~2021-04-04] VITALS: Ht 170.2 cm; Wt 43.0 kg
--- OUTSIDE RECORDS SUMMARY | 2021-04-04 11:50 | XMS REPORT | Encounter Summary ---
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 Take with food. documented in this encounter Progress Notes * Joe Broussard MD - 03/22/2021 3:20 PM SUPERVISOR NUCLEAR MEDICINE Obtained patient's verbal consent to treat them and their agreement [facility] policy and NPP via this telehealth visit during the Coronavirus Public He alth Emergency Name: Gabriela Lock : 1945 AGE: 75 y.o. DATE OF SERVICE: 03/22/2021 Subjective: Reason for Visit: Second opinion consult for Lung carcinoma. Gabriela Lock is a 75 y.o. female. Cancer Staging Malignant neoplasm of lower lobe of left lung (HCC) Staging form: Lung, AJCC 8th Edition - Clinical stage from 03/22/2021: Stage IVB (ycTX, cNX, pM1c) - Signed by Joe Broussard MD on 03/22/2021 History of Present Illness This is 75 year old female, smoker with diagnosis of adenocarcinoma of lung. She is here for second opinion consult for Lung adenocarcinoma. Initial diagnosis w as from May 2019 liver biopsy. NO actionable mutations noted, she did have PDL1 99% and KRAS G12V mutation. She completed carboplatin, Pemetrexed and Pembroliz umab followed by Pembrolizumab maintenance. Last dose is in February. Recent in crease in pain and PET imaging showed progression. I reviewed outside pathology report. PET scan report and images. She has significant pain, pints to mid thora cic area and area in low thoracic and upper lumber area. PET images showed sizab le metastasis on these areas. She complains of poorly controlled pain, poor appetite and weight loss. Radiatio n to psoas mass has not improved much. I reviewed her records from outside. I am not clear if she had radiation to mid thoracic spine metastasis. Review of Systems Constitutional: Positive for activity change, appetite change, fatigue and unexp ected weight change. HENT: Negative. Respiratory: Positive for shortness of breath. Cardiovascular: Negative. Gastrointestinal: Negative. Genitourinary: Negative. Musculoskeletal: Positive for back pain, gait problem and neck pain. Skin: Negative. Neurological: Negative for dizziness. Hematological: Negative. Psychiatric/Behavioral: Negative. All other systems reviewed and are negative. Objective: ALPRAZolam (XANAX) 0.5 mg tablet Take 0.5 mg by mouth at bedtime as needed f or Anxiety. dexAMETHasone (DECADRON) 4 mg tablet Take one tab daily for 5 days than half tab for 5 days. Take with food. gabapentin (NEURONTIN) 400 mg capsule Take 400 mg by mouth as Needed. hydrOXYzine pamoate (VISTARIL) 25 mg capsule Take 25 mg by mouth. ibuprofen (ADVIL) 200 mg tablet Take 200 mg by mouth every 6 hours as needed for Pain. Take with food. morphine SR (MS CONTIN) 100 mg ER tablet Vitals: 03/22/21 1450 PainSc: Ten There is no height or weight on file to calculate BMI. Pain Score: Ten (RIGHT SIDE AND BACK) Fatigue Scale: 10-Extreme Pain Addressed: Prescription provided for pain management and see recomendation s Patient Evaluated for a Clinical Trial: No treatment clinical trial available fo r this patient. Eastern Cooperative Oncology Group performance status is 2, Ambulatory and capab le of all selfcare but unable to carry out any work activities. Up and about mor e than 50% of waking hours. Physical Exam Constitutional: Appearance: She is cachectic. She is ill-appearing. Neurological: Mental Status: She is alert and oriented to person, place, and time. 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 Initial diagnosi s was from May 2019 liver biopsy. NO actionable mutations noted, she did have PD L1 99% and KRAS G12V mutation. She completed carboplatin, Pemetrexed and Pembro lizumab followed by Pembrolizumab maintenance. Last dose is in February. Recent increase in pain and PET imaging showed progression. I reviewed outside patholo gy report. PET scan report and images. She has significant pain, pints to mid th oracic area and area in low thoracic and upper lumber area. PET images showed si zable metastasis on these areas. After review of the clinicla details following recommendation is made on this te le visit. 1. Pain control- Continue MS Contin 100 mg every 8 hours, increase breakthrough Oxycodone to 40 mg at a time every 3-4 hours as needed. Add NSAID (naproxen 440 mg BID with food, Dexamethasone 4 mg daily for 5 days and taper to 2 mg for anot her 5-7 days and stop. Titrate MS Contin and Oxycodone locally. Bowel manageme nt discussed, continue laxatives, consider Methyl-naltrexone (Relistor) if neces joshua. 2. Palliative radiation to the above discussed area may help on pain control if not done already. 3. Treatment second line docetaxel and Ramucirumab discussed as an option, consi michelle Docetaxel starting dose at 60 mg/m2 for concern for pancytopenia from recent radiation to pelvic area. 4. Continue Zometa monthly. 5. Patient has poor appetite, discussed possible use of medical marijuana. It se ems reasonable that patient may try it for appetite and pain. She will continue care locally with Dr. Martinez. RVISOR NUCLEAR MEDICINE documented in this encounter Plan of Treatment Not on filedocumented as of this encounter Visit Diagnoses Diagnosis Malignant neoplasm of lower lobe of lef t lung (HCC) - Primary Adenocarcinoma of left lung (HCC) * Assessment & Plan Note - Joe Broussard MD - 03/22/2021 3:55 PM SUPERVISOR NUCLEAR MEDICINE Associated Problem(s): Malignant neoplasm of lower lobe of left lung (HCC) She is here for second opinion consult for Lung adenocarcinoma. Initial diagnosi s was from May 2019 liver biopsy. NO actionable mutations noted, she did have PD L1 99% and KRAS G12V mutation. She completed carboplatin, Pemetrexed and Pembro lizumab followed by Pembrolizumab maintenance. Last dose is in February. Recent increase in pain and PET imaging showed progression. I reviewed outside patholo gy report. PET scan report and images. She has significant pain, pints to mid th oracic area and area in low thoracic and upper lumber area. PET images showed si zable metastasis on these areas. After review of the clinicla details following recommendation is made on this te le visit. 1. Pain control- Continue MS Contin 100 mg every 8 hours, increase breakthrough Oxycodone to 40 mg at a time every 3-4 hours as needed. Add NSAID (naproxen 440 mg BID with food, Dexamethasone 4 mg daily for 5 days and taper to 2 mg for anot her 5-7 days and stop. Titrate MS Contin and Oxycodone locally. Bowel manageme nt discussed, continue laxatives, consider Methyl-naltrexone (Relistor) if neces joshua. 2. Palliative radiation to the above discussed area may help on pain control if not done already. 3. Treatment second line docetaxel and Ramucirumab discussed as an option, consi michelle Docetaxel starting dose at 60 mg/m2 for concern for pancytopenia from recent radiation to pelvic area. 4. Continue Zometa monthly. 5. Patient has poor appetite, discussed possible use of medical marijuana. It se ems reasonable that patient may try it for appetite and pain. She will continue care locally with Dr. Martinez. RVISOR NUCLEAR MEDICINE documented in this encounter Historical Medications * This list may reflect changes made after this encounter. Start Date End Date Medication Sig Dispensed Refills 03/01/2021 morphine SR (MS CONTIN) 0 100 mg ER tablet added in this encounter Additional Health Concerns Noted Time Assessment 03/22/2021 2:50 PM SUPERVISOR NUCLEAR MEDICINE A fall risk assessment has been complet ed for the patient documented as of this encounter Care Teams Start Date End Date Equipment Superintendent Relationship Specialty 09/05/18 Cathy Hubbard APRN PCP - General Nurse [address] [place] [address] documented as of this encounter
--- OUTSIDE RECORDS SUMMARY | 2021-04-04 11:50 | XMS REPORT | Encounter Summary ---
Author Author [facility] Organization [facility] Address Unknown Phone Unavailable Care Team Providers Care Heel Caser Name Role Phone Cathy Hubbard APRN PCP Reason for Visit * Reason Onset Date Comments Navigation Assessment 03/21/2021 Encounter Details Care Team Description Date Type Department Joe Broussard MD [address] [place] [address] Navigation Assessment 03/21/2021 Telephone Oncology: [address] 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 documented as of this encounter Miscellaneous Notes * Telephone Encounter - Jennifer Hernandez RN - 03/21/2021 12:18 PM SALT OPERATOR Navigation Intake Assessment Document Patient Name: Gabriela Lock : 1945 Insurance: Medicare Appointment Info: Telehealth appt with Dr Clifton Broussard on 03/22/21 Diagnosis & Reason for Visit: Lung cancer Physician Info: Referring Physician: Abdulkadir Wallace APRN Contact Name & Number: [address] [place], [place] Surgeon: Medical Oncologist: Dr Keya Martinez Radiation Oncologist: Dr Inna Lerner PCP: Bear Hubbard APRN, Dr Roddy Briscoe Other: Location of Films: PACS Location of Pathology: May 2019 Liver biopsy at [facility], report in Care Ever ywhere History of Present Illness: Pt had workup and treatment at [facility] in [place], [place]. Outside records scanned in O2 and in Care Everywhere. 06/04/19 - Liver biopsy, Path: mets poorly diff Adeno CA, lung origin ROS neg, ALK neg, BRAF neg, EGFR neg, KRAS positive, PDL1 99% 07/01/19 - CT abd, pelvis 07/03/19 - MRI brain, negative June 2019 - Radiation treatment to L hip July 2019 - Jan 2021 - Chemo treatment, Carbo, Alimta, Keytruda 4 cycles followed by Keytruda alone, had 22 cycles 06/17/20 - CT chest, abd, Bone scan 06/28/20 - 07/09/20 - Radiation treatment to 3 sites, R shoulder, L/S spine, R fem ur 09/23/20 - CT chest, abd, pelvis, bone scan 12/31/20 - CT, bone scan 01/14/21 - Biopsy of psoas muscle, Path: necrotic tissue susp for tumor necrosis Jan 2021 - Radiation treatment to psoas muscle 02/28/21 - CT chest, abd, pelvis, bone scan 03/08/21 - PET scan Pt referred to [facility] Onc Prior Treatment (XRT, Surgery, Chemotherapy): Chemo, immunotherapy and Radiatio n treatment as above. Allergies reviewed and verified with the patient, and documented in Epic: Yes Comments: Spoke to patient and her daughter, Wendy, about appt. Instructions and link for Telehealth appt sent via [employer]. NEEDS Assessment: Genetic Counseling: Genetic Assessment: No identified risk factors Nutrition: Additional Nutrition Assessment: No concerns identified Social & Financial: Social and Financial Assessment: Reports adequate support system Tobacco assessment last 30 days: Not assessed at this time Spiritual & Emotional: Spiritual and Emotional Assessment: Reports feeling and/or sounds anxious, worri ed or irritable Spiritual and Emotional Intervention: Provided information about available servi daniel;Emotional Support provided Physical: Fall Risk: None identified Communication: Communication Barrier: No Onc Fertility: Onc Fertility Assessment: Female patient is postmenopausal or has had hysterecto my OPERATOR documented in this encounter Plan of Treatment Not on filedocumented as of this encounter Visit Diagnoses Not on filedocumented in this encounter Additional Health Concerns Noted Time Assessment 03/21/2021 4:00 PM SALT OPERATOR A fall risk assessment has been complet ed for the patient documented as of this encounter Care Teams Start Date End Date Heel Caser Relationship Specialty 09/05/18 Cathy Hubbard APRN PCP - General Nurse [address] [place] [address] documented as of this encounter
--- OUTSIDE RECORDS SUMMARY | 2021-04-04 11:50 | XMS REPORT | Encounter Summary ---
Author Author [facility] Organization [facility] Address Unknown Phone Unavailable Care Team Providers Care Overhead Cleaner Name Role Phone Cathy Hubbard APRN PCP Encounter Details Care Team Description Date Type Department 03/08/2021 Hospital Imaging: Main [facility], Encounter [facility] [address], [address] [place] [address] Social History Date Tobacco Use Types Packs/Day Years Used Current Every Day Smoker Cigarettes Smokeless Tobacco: Never Used Comments Alcohol Use Standard Drinks/Week Yes 0 (1 standard drink = 0.6 o z pure alcohol) Sex Assigned at Date Recorded Female 03/22/2021 8:38 AM 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 gabapentin (NEURONTIN) Take 400 mg 0 400 mg capsule by mouth as Needed. hydrOXYzine pamoate Take 25 mg by 0 (VISTARIL) 25 mg capsule mouth. ibuprofen (ADVIL) 200 mg Take 200 mg 0 tablet by mouth every 6 hours as needed for Pain. Take with food. 03/01/2021 morphine SR (MS CONTIN) 0 100 mg ER tablet documented as of this encounter Discharge Disposition Code Departure Means Destination Disposition Home Home or Self Care documented in this encounter Plan of Treatment Not on filedocumented as of this encounter Procedures Comments Procedure Name Priority Date/Time Associated Diag nosis NM PET/CT EXTERNAL Routine 03/08/2021 IMAGING 12:00 AM STRATEGIC CONSULTANT documented in this encounter Results * NM PET/CT EXTERNAL IMAGING (03/08/2021 12:00 AM STRATEGIC CONSULTANT) Modality Anatomical Region Laterality Computed Radiography Specimen Narrative Scheduling, Silent - 03/16/2021 2:20 PM STRATEGIC CONSULTANT This order has been auto finalized and does not contain a result. documented in this encounter Visit Diagnoses Not on filedocumented in this encounter Care Teams Start Date End Date Overhead Cleaner Relationship Specialty 09/05/18 Cathy Hubbard APRN PCP - General Nurse [address] [place] [address] documented as of this encounter
--- OUTSIDE RECORDS SUMMARY | 2021-04-04 11:50 | XMS REPORT | Encounter Summary ---
Author Author [facility] Organization [facility] Address Unknown Phone Unavailable Care Team Providers Care Television Schedule Coordinator Name Role Phone Cathy Hubbard APRN PCP Encounter Details Care Team Description Date Type Department Arrived 03/30/2021 Hospital Imaging: Main [place] [facility], Encounter [facility] [address], [address] [place] [address] Social History Date Tobacco Use Types Packs/Day Years Used Current Every Day Smoker Cigarettes Smokeless Tobacco: Never Used Comments Alcohol Use Standard Drinks/Week Yes 0 (1 standard drink = 0.6 o z pure alcohol) Sex Assigned at Date Recorded Female 03/22/2021 8:38 AM 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 03/22/2021 dexAMETHasone (DECADRON) Take one tab 20 tablet 0 4 mg tablet daily for 5 days than half tab for 5 days. Take with food. gabapentin (NEURONTIN) Take 400 mg 0 400 [...] Procedure Name Priority Date/Time Associated Diag nosis CT CHEST/ABD/PEL EXTERNAL Routine 03/16/2021 IMAGING 2:23 PM COMPUTER SYSTEM VALIDATION SPECIALIST documented in this encounter Results * CT CHEST/ABD/PEL EXTERNAL IMAGING (03/16/2021 2:23 PM COMPUTER SYSTEM VALIDATION SPECIALIST) Modality Anatomical Region Laterality Computed Radiography Specimen Narrative Scheduling, Silent - 03/16/2021 2:23 PM COMPUTER SYSTEM VALIDATION SPECIALIST This order has been auto finalized and does not contain a result. documented in this encounter Visit Diagnoses Not on filedocumented in this encounter Additional Health Concerns Noted Time Assessment 03/22/2021 2:50 PM COMPUTER SYSTEM VALIDATION SPECIALIST A fall risk assessment has been complet ed for the patient documented as of this encounter Care Teams Start Date End Date Television Schedule Coordinator Relationship Specialty 09/05/18 Cathy Hubbard, REJI PCP - General Nurse [address] [place] [address] documented as of this encounter
--- OUTSIDE RECORDS SUMMARY | 2021-04-04 11:50 | XMS REPORT | Clinical Summary ---
Author Author [facility] Organization [facility] Address Unknown Phone Unavailable Care Team Providers Care Documentation Analyst Name Role Phone Cathy Hubbard APRN PCP Source Comments Some departments are not documenting in the electronic medical record. If you d o not see the information that you expected, contact Release of Information in [facility] Information Management department at [phone] for further assistan ce in locating additional records.[facility] Allergies Comments Active Allergy Reactions Severity Noted [...] 0 (VISTARIL) 25 mg capsule mouth. Active morphine SR (MS CONTIN) 0 100 mg ER tablet 1 Active dexAMETHasone (DECADRON) Take one tab 20 tablet 0 4 mg tablet daily for 5 1 days than half tab for 5 days. Take with food. Active Problems Problem Noted Date Adenocarcinoma of left lung 03/22/2021 Secondary malignant neoplasm of muscle of hip 2020 Malignant neoplasm of lower lobe of left lung 2019 Cancer Staging: Clinical stage from 03/22/2021: Stage IVB (ycTX, cNX, pM1c) - Signed by Joe Broussard MD on 05/23/2020 Last Assessment & Plan: Formatting of this note might be differ ent from the original. She is here for second opinion consult for Lung adenocarcinoma. Initial diagnosis was from May 2019 liver biops y. NO actionable mutations noted, she did have PDL1 99% and KRAS G12V mut ation. She completed carboplatin, Pemetrexed and Pembrolizumab followed b y Pembrolizumab maintenance. Last dose is in February. Recent increase i n pain and PET imaging showed progression. I reviewed outside patholo gy report. PET scan report and images. She has significant pain, pints to mid thoracic area and area in low thoracic and upper lumber area. PET images showed sizable metastasis on these areas. After review of the clinicla details jerry samson recommendation is made on this tele visit. 1. Pain control- Continue MS Contin 100 mg every 8 hours, increase breakthrough Oxycodone to 40 mg at a ti me every 3-4 hours as needed. Add NSAID (naproxen 440 mg BID with food, D examethasone 4 mg daily for 5 days and taper to 2 mg for another 5-7 days and stop. Titrate MS Contin and Oxycodone locally. Bowel management di scussed, continue laxatives, consider Methyl-naltrexone (Relistor) i f necessary. 2. Palliative radiation to the above di scussed area may help on pain control if not done already. 3. Treatment second line docetaxel and Ramucirumab discussed as an option, consider Docetaxel starting dose at 60 mg/m2 for concern for pancytopenia from recent radiation to pelvic area. 4. Continue Zometa monthly. 5. Patient has poor appetite, discussed possible use of medical marijuana. It seems reasonable that patient may tr y it for appetite and pain. She will continue care locally with Dr. Martinez. Secondary malignant neoplasm of liver 07/08/2019 Secondary malignant neoplasm of bone 07/08/2019 Encounters Care Team Description Date Type Specialty Arrived 03/30/2021 Hospital Radiology Encounter Joe Broussard MD Malignant neoplasm of lower lobe of left lung (HCC) (Primary Dx); Adenocarcinoma of left lung (HCC) 03/22/2021 Office Visit Oncology Telehealth Joe Broussard MD Navigation Assessment 03/21/2021 Telephone Oncology 03/08/2021 Hospital Radiology Encounter 01/14/2021 Hospital Radiology Encounter 01/13/2021 Hospital Radiology Encounter from Last 3 Months Surgical History Surgery Date Site/Laterality Comments HX HYSTERECTOMY Medical History Medical History Date Comments Anxiety [...] at Date Recorded Female 03/22/2021 8:38 AM 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 FOR METAL Last Filed Vital Signs Reading Time Taken [...] 2) OSTEOPOROSIS 11/10/2012 SCREENING/MONITORING INFLUENZA VACCINE 11/14/2020 Procedures Comments Procedure Name Priority Date/Time Associated Diag nosis CT CHEST/ABD/PEL EXTERNAL Routine 03/16/2021 IMAGING 2:23 PM DRILL 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 FOR METAL NM PET/CT EXTERNAL Routine 03/08/2021 IMAGING 12:00 AM DRILL 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 FOR METAL CT MISC EXTERNAL IMAGING Routine 01/14/2021 12:[address] ABD/PEL EXTERNAL Routine 01/13/2021 IMAGING 12:00 AM CDT from Last 3 Months Results * CT CHEST/ABD/PEL EXTERNAL IMAGING (03/16/2021 2:23 PM DRILL 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 FOR METAL) Modality Anatomical Region Laterality Computed Radiography Specimen Narrative Scheduling, Silent - 03/16/2021 2:23 PM DRILL 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 FOR METAL This order has been auto finalized and does not contain a result. * NM PET/CT EXTERNAL IMAGING (03/08/2021 12:00 AM DRILL 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 FOR METAL) Modality Anatomical Region Laterality Computed Radiography Specimen Narrative Scheduling, Silent - 03/16/2021 2:20 PM DRILL 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 FOR METAL This order has been auto finalized and does not contain a result. * CT MISC EXTERNAL IMAGING (01/14/2021 12:00 AM CDT) Modality Anatomical Region Laterality Computed Radiography Specimen Narrative Scheduling, Silent - 03/16/2021 2:21 PM DRILL 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 FOR METAL This order has been auto finalized and does not contain a result. * CT ABD/PEL EXTERNAL IMAGING (01/13/2021 12:00 AM CDT) Modality Anatomical Region Laterality Computed Radiography Specimen Narrative Scheduling, Silent - 03/16/2021 2:24 PM DRILL 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 FOR METAL This order has been auto finalized and does not contain a result. from Last 3 Months Insurance Type Payer Benefit Subscriber ID Effective Phone Address Plan / Dates Group Medicare MEDICARE MEDICARE [id number] 1998-P [phone] [address] [place] [address] PPO BANKERS [employer] B[employer]ERS [id number] 2021- [address] [place] [phone] Gabriela Lock Third Self 1945 [address] (Home) [place] [address] Liability Advance Directives Patient Process Expert Explanation Type Date Recorded Advance Directive/DPOA Care Teams Start Date End Date Documentation Analyst Relationship Specialty 09/05/18 Cathy Hubbard APRN PCP - General Nurse [address] [place] [address]
[2021-04-04] MEDS ORDERED: KETAMINE SYRINGE 50 MG/5 ML SYRINGE IV ONE (12:45)
[2021-04-04] MEDS ORDERED: HYDROmorphone 2 MG/ML VIAL (DILAUDID) IV ONE (12:45)
[2021-04-04] MEDS ORDERED: NS IV 1000 ML 1,000 ML IV SCH ×2 (12:45→18:00)
[2021-04-04 12:50] LABS: BASOPHILS # (AUTO) 0.1 10^3/uL (0.0-0.1); BASOPHILS % (AUTO) 0 % (0-10); EOSINOPHILS % (AUTO) 6 % (0-10); HEMOGLOBIN 9.8 g/dL (11.5-16.0); MEAN PLATELET VOLUME 13.1 fL (9.0-12.2)
[2021-04-04 12:51] LABS: HEMATOCRIT 31 % (35-52); LYMPHOCYTES # (AUTO) 0.8 10^3/uL (1.0-4.0); LYMPHOCYTES % (AUTO) 5 % (12-44); MEAN CORPUSCULAR HEMOGLOBIN 32 pg (25-34); MEAN CORPUSCULAR HGB CONC 32 g/dL (32-36); MEAN CORPUSCULAR VOLUME 100 fL (80-99); MONOCYTES % (AUTO) 6 % (0-12); NEUTROPHILS # (AUTO) 13.7 10^3/uL (1.8-7.8); NEUTROPHILS % (AUTO) 81 % (42-75); PLATELET COUNT 128 10^3/uL (130-400); WHITE BLOOD COUNT 16.8 10^3/uL (4.3-11.0)
[2021-04-04 13:01] LABS: CALCIUM 8.3 MG/DL (8.5-10.1)
[2021-04-04 13:05] LABS: CREATININE SERUM 0.88 MG/DL (0.60-1.30)
--- NOTE | 2021-04-04 13:06 | ED General ---
General Chief Complaint: General Problems/Pain Stated Complaint: PAIN R LEG AND BACK Nursing Triage Note: CA PT WITH PAIN THAT SHE IS UNABLE TO CONTROL AT HOME, SCHEDULED FOR RAD TODAY AT 1515 HERE. Source of Information: Patient Exam Limitations: No Limitations (JONA NORTH APRN) History of Present Illness Date Seen by Provider: Apr 04, 2021 Time Seen by Provider: 13:03 Initial Comments To ER with reports of intractable pain despite her gabapentin, OxyContin 20mg po qid and morphine 100mg po TID. She is scheduled for palliative radiation this would be her fifth treatment for right psoas metastatic lesion (lung primary) causing severe pain in the right side of her back down the right leg. She did not feel like she could lie flat for the radiation treatment. Timing/Duration: 1-2 Days Severity: Moderate Associated Systoms: Denies Symptoms (JONA NORTH APRN) Allergies and Home Medications Allergies Coded Allergies: Sulfa (Sulfonamide Antibiotics) (Unverified Allergy, Mild, HIVES, SWELLING AND ITCHING, 07/08/19) Patient Home Medication List Home Medication List Reviewed: Yes (JONA NORTH APRN) Acetaminophen (Tylenol) 325 Mg Capsule, 975 MG PO TID Prescribed by: MANNY CANELA on 07/02/19 1031 Allopurinol (Allopurinol) 100 Mg Tablet, 100 MG PO DAILY Prescribed by: MANNY CANELA on 07/06/19 1243 Amoxicillin/Potassium Clav (Augmentin 875-125 Tablet) 1 Each Tablet, 1 EACH PO BID Prescribed by: MANNY CANELA on 01/14/21 1407 Betamethasone/Propylene Glyc (Betamethasone Dp Aug 0.05% Crm) 15 Gm Cream..g., 1 APPLIC TOP DAILY PRN for RASH, (Reported) Entered as Reported by: SAMY LEWIS on 07/01/19 152 Calcium Carbonate (Tums Ultra) 400 Mg Tab.chew, 800 MG PO PRN PRN for INDIGESTION, (Reported) Entered as Reported by: SAMY LEWIS on 07/01/19 152 Cetirizine HCl (Zyrtec) 10 Mg Tablet, 10 MG PO DAILY PRN for ALLERGY SYMPTOMS, (Reported) Entered as Reported by: SAMY LEWIS on 07/01/19 152 Gabapentin (Gabapentin) 400 Mg Capsule, 400 MG PO TID, (Reported) Entered as Reported by: SAMY LEWIS on 07/01/19 1522 Ibuprofen (Advil) 200 Mg Tablet, 400 MG PO Q6H PRN for PAIN-MILD (1-4), (Reported) Entered as Reported by: SAMY LEWIS on 07/01/19 1522 Oxycodone HCl (Oxycontin) 30 Mg Tab.er.12h, 30 MG PO BID Prescribed by: MANNY CANELA on 07/06/19 1023 Oxycodone HCl (Oxycodone HCl) 10 Mg Tablet, 10 MG PO Q4H PRN for PAIN-SEVERE (8- 10) Prescribed by: MANNY CANELA on 07/06/19 1023 Oxycodone HCl (Oxycontin) 40 Mg Tab.er.12h, 40 MG PO BID Prescribed by: MAINE KUMAR on 07/29/19 1210 Review of Systems Review of Systems Constitutional: see HPI EENTM: see HPI Respiratory: no symptoms reported Cardiovascular: no symptoms reported Genitourinary: no symptoms reported Musculoskeletal: no symptoms reported Skin: no symptoms reported Psychiatric/Neurological: No Symptoms Reported Hematologic/Lymphatic: No Symptoms Reported (JONA NORTH APRN) Past Dlpwcod-Ydbowj-Gyxppd Hx Patient Social History Tobacco Use?: Yes Tobacco type used: Cigarettes Smoking Status: Current Someday Smoker Substance use?: No Alcohol Use?: No (JONA NORTH APRN) Immunizations Up To Date First/Initial COVID19 Vaccinat: August 2020 Second COVID19 Vaccination Dany: August 2020 Third COVID19 Vaccination Date: August 2020 (JONA NORTH APRN) Seasonal Allergies Seasonal Allergies: No (JONA NORTH APRN) Past Medical History Surgery/Hospitalization HX: lunch cancer, mets to abdomen Surgeries: Yes (colon resection) Abdominal, Appendectomy, Hysterectomy, Joint Replacement, Neurological, Orthopedic Respiratory: Yes (METASTATIC LUNG CANCER DX 05/2019; NOCTURNAL HYPOXIA-NEW DX. 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, WIDESPREAD) Bone, Lung Did You Recieve Any Treatments: No Psychosocial: Yes (SINCE CA DX) Anxiety Integumentary: No Blood Disorders: No (JONA NORTH APRN) Family Medical History Neoplasm 19 FATHER (BLADDER CANCER) 19 MOTHER (OVARIAN CANCER) G8 BROTHER (COLON CANCER) G8 SISTER (BACK AND LUNG CANCER) PSH: - X 2 -HYSTERECTOMY/BSO FOR DUB -APPENDECTOMY -COLON RESECTION FOR DIVERTICULITIS -BACK SURGERY X 4 -BILATERAL KNEE SCOPES -RIGHT HIP REPLACEMENT DUE TO ARTHRITIS (JONA NORTH APRN) Physical Exam Vital Signs Vital Signs - First Documented 04/04/21 12:03 Temp 36.8 Pulse 95 Resp 18 B/P (MAP) 95/65 (75) Pulse Ox 96 O2 Delivery Room Air (CLOVER CHEN MD) Vital Signs Capillary Refill : Less Than 3 Seconds (JONA NORTH APRN) Height, Weight, BMI Height: '" Weight: lbs. oz. kg; 16.00 BMI Method: General Appearance: No Apparent Distress, WD/WN, Thin, Other Eyes: Bilateral Eye Normal Inspection, Bilateral Eye PERRL Respiratory: No Accessory Muscle Use, No Respiratory Distress Cardiovascular: Regular Rate, Rhythm, Normal Peripheral Pulses Gastrointestinal: Normal Bowel Sounds, Non Tender, Soft Extremity: Normal Capillary Refill, Normal Inspection Neurologic/Psychiatric: Alert, Oriented x3 Skin: Normal Color, Warm/Dry (JONA NORTH APRN) Progress/Results/Core Measures Suspected Sepsis SIRS Temperature: Pulse: 95 Respiratory Rate: 18 Laboratory Tests 04/04/21 12:40: White Blood Count 16.8H Blood Pressure 95 /65 Mean: 75 Laboratory Tests 04/04/21 12:40: Creatinine 0.88, Platelet Count 128L (JONA NORTH APRN) Results/Orders Lab Results Laboratory Tests Test 04/04/21 12:40 Range/Units White Blood Count 16.8 H 4.3-11.0 10^3/uL Red Blood Count 3.08 L 3.80-5.11 10^6/uL Hemoglobin 9.8 L 11.5-16.0 g/dL Hematocrit 31 L 35-52 % Mean Corpuscular Volume 100 H 80-99 fL Mean Corpuscular Hemoglobin 32 25-34 pg Mean Corpuscular Hemoglobin Concent 32 32-36 g/dL Red Cell Distribution Width 14.8 H 10.0-14.5 % Platelet Count 128 L 130-400 10^3/uL Mean Platelet Volume 13.1 H 9.0-12.2 fL Immature Granulocyte % (Auto) 2 % Neutrophils (%) (Auto) 81 H 42-75 % Lymphocytes (%) (Auto) 5 L 12-44 % Monocytes (%) (Auto) 6 0-12 % Eosinophils (%) (Auto) 6 0-10 % Basophils (%) (Auto) 0 0-10 % Neutrophils # (Auto) 13.7 H 1.8-7.8 10^3/uL Lymphocytes # (Auto) 0.8 L 1.0-4.0 10^3/uL Monocytes # (Auto) 1.0 0.0-1.0 10^3/uL Eosinophils # (Auto) 1.0 H 0.0-0.3 10^3/uL Basophils # (Auto) 0.1 0.0-0.1 10^3/uL Immature Granulocyte # (Auto) 0.3 H 0.0-0.1 10^3/uL Neutrophils % (Manual) 79 % Lymphocytes % (Manual) 4 % Monocytes % (Manual) 7 % Eosinophils % (Manual) 7 % Band Neutrophils 3 % Percent Immature Platelet Fraction 15.0 H 0.0-7.6 % Blood Morphology Comment NORMAL Sodium Level 134 L 135-145 MMOL/L Potassium Level 4.0 3.6-5.0 MMOL/L Chloride Level 98 98-107 MMOL/L Carbon Dioxide Level 27 21-32 MMOL/L Anion Gap 9 5-14 MMOL/L Blood Urea Nitrogen 30 H 7-18 MG/DL Creatinine 0.88 0.60-1.30 MG/DL Estimat Glomerular Filtration Rate 63 BUN/Creatinine Ratio 34 Glucose Level 105 70-105 MG/DL Calcium Level 8.3 L 8.5-10.1 MG/DL (CLOVER CHEN MD) Medications Given in ED Current Medications Medications Dose Ordered Sig/Cosme Route Start Time Stop Time Status Last Admin Dose Admin Hydromorphone HCl 1 mg ONCE ONCE IV 04/04/21 12:45 04/04/21 12:46 DC 04/04/21 12:47 1 MG Ketamine HCl 50 mg ONCE ONCE IV 04/04/21 12:45 04/04/21 12:46 DC 04/04/21 13:48 25 MG (CLOVER CHEN MD) Vital Signs/I&O 04/04/21 04/04/21 12:03 12:47 Temp 36.8 36.8 Pulse 95 Resp 18 B/P (MAP) 95/65 (75) Pulse Ox 96 O2 Delivery Room Air (CLOVER CHEN MD) Vital Signs/I&O Capillary Refill : Less Than 3 Seconds (JONA NORTH APRN) Blood Pressure Mean: 75 Departure Communication (Admissions) 1433-she has achieved pain control with 50 mg of ketamine and 1 mg of Dilaudid. Though she is quite disoriented. She is DO NOT RESUSCITATE status. Daughter asks about admission for intractable pain. I discussed with the patient and her daughter that I feel it is time to initiate hospice. They are interested in further discussions and conversations about hospice. I spoke with Dr. Canela, agrees to admit and would like to do GIP admission on hospice. Spoke with Giuseppe from palliative care, she will be on to visit with the patient and family. [id number]-Giuseppe from Palliative care services has visited with patient and family, do not want to start hospice currently as they do not want to forego the palliative radiation treatments as they have given her some benefit. 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 she states that her right knee seems to give out on her a lo which has made her fall. I offered her a knee immobilizer and she would like to try that. (JONA NORTH APRN) Impression Primary Impression: Acute exacerbation of chronic low back pain Additional Impression: METASTATIC LUNG CANCER Disposition: ADMITTED INPATIENT Condition: Stable Admissions Decision to Admit Reason: Admit from ER (General) Decision to Admit/Date: Apr 04, 2021 Time/Decision to Admit Time: 14:35 (JONA NORTH APRN) Departure-Patient Inst. Decision time for Depature: 13:43 (JONA NORTH APRN) Referrals: SAGE VICTORIA MD (PCP/Family) Primary Care Physician ATTENDING PHYSICIAN NOTE: I was physically present as attending physician in the emergency department during the care of this patient, but I was not directly involved in the decision making or delivery of care for this patient. (CLOVER CHEN MD) JONA NORTH APRN Apr 04, 2021 13:06 CLOVER CHEN MD Apr 04, 2021 18:27
[2021-04-04 13:45] LABS: BAND NEUTROPHILS 3 %; EOSINOPHILS % (MANUAL) 7 %; LYMPHOCYTES % (MANUAL) 4 %; MONOCYTES % (MANUAL) 7 %; NEUTROPHILS % (MANUAL) 79 %; RBC MORPH NORMAL
[2021-04-04 17:08] VITALS: BP 93/62
[2021-04-04] MEDS ORDERED: NALOXONE 0.4 MG/ML 1 ML (NARCAN) VIAL IV PRN (18:00)
[2021-04-04] MEDS ORDERED: ONDANSETRON 4 MG/2 ML (SDV) Z0FRAN IV PRN (18:00)
[2021-04-04] MEDS ORDERED: diphenhydrAMINE 50 MG/ML INJ (BENADRYL) IV PRN (18:00)
[2021-04-04] MEDS ORDERED: METOCLOPRAMIDE INJ 10 MG/2 ML (REGLAN) IV PRN (18:00)
[2021-04-04] MEDS: LACTATED RINGERS 1,000 ML IV SCH (18:25)
[2021-04-04] MEDS: polyethylene glycoL POWDER 17 GM (MIRALAX) PACK PO SCH (19:43)
[2021-04-04] MEDS: DOCUSATE SODIUM 100 MG (COLACE) CAP PO SCH (19:43)
[2021-04-04 20:27] VITALS: BP 90/52
[2021-04-04] MEDS: morphine ER 100 MG (MS CONTIN) TAB PO SCH (21:48)
[2021-04-04 23:02] VITALS: BP 94/60
[2021-04-04] MEDS: HYDROmorphone PCA 20 MG/100 ML NS IV PRN (23:34)
[2021-04-05 04:22] VITALS: BP 99/67
[2021-04-05] MEDS: morphine ER 100 MG (MS CONTIN) TAB PO SCH (05:02)
[2021-04-05 08:02] VITALS: BP 92/53
[2021-04-05] MEDS: LACTATED RINGERS 1,000 ML IV SCH ×2 (08:21→12:27)
[2021-04-05] MEDS: polyethylene glycoL POWDER 17 GM (MIRALAX) PACK PO SCH ×2 (09:33→20:10)
[2021-04-05] MEDS: GABAPENTIN 300 MG (NEURONTIN) CAP PO SCH ×3 (09:34→22:37)
[2021-04-05] MEDS: DOCUSATE SODIUM 100 MG (COLACE) CAP PO SCH ×2 (09:34→20:10)
[2021-04-05] MEDS: ACETAMINOPHEN 500 MG TAB (TYLENOL) PO SCH ×3 (09:35→22:37)
[2021-04-05] MEDS: SENNA W/DOCUSATE (SENOKOT S) TABLET PO SCH (09:35)
[2021-04-05] MEDS ORDERED: MORP100T47 PO (10:10)
[2021-04-05] MEDS ORDERED: NAPR220C11 PO (10:10)
[2021-04-05] MEDS ORDERED: DEXA4TAB PO (10:10)
[2021-04-05] MEDS ORDERED: ONDA-106 PO (10:10)
[2021-04-05] MEDS ORDERED: ALPR0.5T7 PO (10:10)
[2021-04-05] MEDS ORDERED: DOCU100T2 PO (10:10)
[2021-04-05] MEDS ORDERED: OXYC20TA3 PO (10:10)
[2021-04-05 11:37] VITALS: BP 86/52
[2021-04-05 12:11] VITALS: BP 95/42
[2021-04-05] MEDS ORDERED: METHADONE 10 MG (DOLOPHINE) TAB PO NR (14:30)
--- NOTE | 2021-04-05 14:45 | History & Physical-Hospitalist ---
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 She has been getting palliative radiation to a right psoas muscle metastasis. She has undergone 5 treatments thus far and is not having any improvement. She reports having a few falls recently. She is worried she is going to break a bone. She is considering hospice. She is not sure if she wants to continue with her radiation. Source: patient Exam Limitations: no limitations Date Seen 04/05/21 Time Seen by a Provider: 09:15 Attending Physician Manny Canela MD PCP Sarath Briscoe MD Referring Physician Date of Admission Apr 04, 2021 at 14:45 Home Medications & Allergies Home Medications Reviewed patient Home Medication Reconciliation performed by pharmacy medication reconciliations news gathering technician and/or nursing. Patients Allergies have been reviewed. Allergies Allergies Coded Allergies Sulfa (Sulfonamide Antibiotics) (Unverified Allergy, Mild, HIVES, SWELLING AND ITCHING, 07/08/19) Past Oerjypo-Cdrcjb-Ydcrdw Hx Patient Social History Tobacco Use?: Yes Tobacco type used: Cigarettes Smoking Status: Current Someday Smoker Substance use?: No Alcohol Use?: No Pt feels they are or have been: No Immunizations Up To Date First/Initial COVID19 Vaccinat: August 2020 Second COVID19 Vaccination Dany: August 2020 Date of Pneumonia Vaccine: Jun 30, 2014 Seasonal Allergies Seasonal Allergies: No Current Status status: No Advance Directives: No Advance Directive Location: Unable to obtain copy Communicates: Verbally Primary Language: [place]alander Preferred Spoken Language: [place]al[place] Is interpretation needed?: No Implanted or Applied Medical D: None Past Medical History Surgeries: Abdominal, Appendectomy, Hysterectomy, Joint Replacement, Neurological, Orthopedic 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, Menopausal Diverticulosis Degenerate Disk Disease, Arthritis, Rheumatoid Arthritis, Chronic Back Pain Diabetes, Non-Insulin dep Bone, Lung Did You Recieve Any Treatments: Yes What Type of Treatment Did You: Radiation Anxiety Blood Disorders: No Family Medical History Neoplasm 19 FATHER (BLADDER CANCER) 19 MOTHER (OVARIAN CANCER) G8 BROTHER (COLON CANCER) G8 SISTER (BACK AND LUNG CANCER) PSH: - X 2 -HYSTERECTOMY/BSO FOR DUB -APPENDECTOMY -COLON RESECTION FOR DIVERTICULITIS -BACK SURGERY X 4 -BILATERAL KNEE SCOPES -RIGHT HIP REPLACEMENT DUE TO ARTHRITIS Review of Systems Constitutional: weakness, weight loss EENTM: no symptoms reported Respiratory: no symptoms reported Cardiovascular: no symptoms reported Gastrointestinal: no symptoms reported Genitourinary: no symptoms reported Musculoskeletal: back pain Skin: no symptoms reported Psychiatric/Neurological: Depressed Physical Exam Physical Exam Vital Signs Vital Signs - First Documented 04/04/21 04/04/21 12:03 23:02 Temp 36.8 Pulse 95 Resp 18 B/P (MAP) 95/65 (75) Pulse Ox 96 O2 Delivery Room Air O2 Flow Rate 2.00 Capillary Refill : Less Than 3 Seconds Height, Weight, BMI Height: '" Weight: lbs. oz. kg; 14.84 BMI Method: General Appearance: No Apparent Distress, Chronically ill, Cachetic HEENT: PERRL/EOMI, Pharynx Normal Neck: Normal Inspection, Supple Respiratory: Lungs Clear, Normal Breath Sounds, No Respiratory Distress Cardiovascular: Regular Rate, Rhythm, No Edema, No Murmur Gastrointestinal: Normal Bowel Sounds, Non Tender, Soft Extremity: Normal Inspection, Non Tender, No Pedal Edema Neurologic/Psychiatric: Alert, Depressed Affect Skin: Normal Color, Warm/Dry Results Results/Procedures Labs Laboratory Tests 04/04/21 12:40 Patient resulted labs reviewed. Assessment/Plan Admission Diagnosis Intractable pain Admission Status: Observation Assessment and Plan Pain of metastatic malignancy Metastatic lung cancer to the bone Severe protein calorie malnutrition Cachexia Tobacco abuse Dilaudid BOLT MAN Methadone Decadron Gabapentin Tylenol Palliative care following Planning for discharge home with [facility] tomorrow Diagnosis/Problems Diagnosis/Problems (1) Pain of metastatic malignancy Status: Acute (2) Lung cancer metastatic to bone Status: Acute (3) Cachexia Status: Acute (4) Severe protein-calorie malnutrition Status: Acute (5) Tobacco abuse Status: Chronic MANNY CANELA MD Apr 05, 2021 14:45
[2021-04-05 16:00] VITALS: BP 100/50
[2021-04-05] MEDS: LORazepam 0.5 MG (ATIVAN) TABLET PO PRN (16:11)
[2021-04-05 19:55] VITALS: BP 108/58
[2021-04-05] MEDS: HYDROmorphone PCA 20 MG/100 ML NS IV PRN (23:04)
[2021-04-06 00:10] VITALS: BP 88/40
[2021-04-06] MEDS: LACTATED RINGERS 1,000 ML IV SCH (00:50)
[2021-04-06 03:37] VITALS: BP 96/54
[2021-04-06 08:04] VITALS: BP 104/50
[2021-04-06] MEDS: DOCUSATE SODIUM 100 MG (COLACE) CAP PO SCH (08:21)
[2021-04-06] MEDS: GABAPENTIN 300 MG (NEURONTIN) CAP PO SCH (08:21)
[2021-04-06] MEDS: SENNA W/DOCUSATE (SENOKOT S) TABLET PO SCH (08:21)
[2021-04-06] MEDS: ACETAMINOPHEN 500 MG TAB (TYLENOL) PO SCH (08:23)
[2021-04-06] MEDS: polyethylene glycoL POWDER 17 GM (MIRALAX) PACK PO SCH (08:24)
[2021-04-06] MEDS ORDERED: METHADONE 10 MG (DOLOPHINE) TAB PO SCH (09:00)
[2021-04-06] MEDS ORDERED: METH-742 PO (11:10)
--- NOTE | 2021-04-06 11:15 | Discharge Summary ---
Discharge Summary Hospital Course Problems/Dx: (1) Pain of metastatic malignancy Status: Acute (2) Lung cancer metastatic to bone Status: Acute (3) Cachexia Status: Acute (4) Severe protein-calorie malnutrition Status: Acute (5) Tobacco abuse Status: Chronic (6) Poor prognosis Status: Acute Hospital Course Date of Admission: Apr 04, 2021 at 14:45 Admission Diagnosis : Pain of metastatic malignancy Family Physician/Provider: Sage Briscoe MD Date of Discharge: 04/06/21 Discharge Diagnosis: Pain of metastatic malignancy, metastatic lung cancer to the bone Hospital Course: Gabriela Lock is a 75 year old female with metastatic lung cancer to the bone who was admitted with intractable pain of metastatic malignancy. She was started on a Dilaudid CAR SEAT MAKER. Palliative care was consulted and assisted in her care. She was set up with [facility] on discharge. She was going to continue the Dilaudid CAR SEAT MAKER at home. She was also started on Methadone. She was discharged home in improved but poor condition. Labs and Pending Lab Test: Home Meds Active Methadone HCl 10 Mg Tablet 10 Mg PO DAILY 14 Days Reported Docusate Sodium 100 Mg Tablet 200 Mg PO BID PRN Aleve (Naproxen Sodium) 220 Mg Capsule 220 Mg PO Q8H PRN Alprazolam 0.5 Mg Tablet 0.25-0.5 Mg PO TID PRN Dexamethasone 4 Mg Tablet 2 Mg PO BID TAKES OF A 4MG TAB Oxycodone HCl 20 Mg Tablet 40 Mg PO Q4- 6H TAKES 2 (20MG) TABS Ondansetron HCl 8 Mg Tablet 8 Mg PO Q8H PRN Morphine Sulfate ER (Morphine Sulfate) 100 Mg Tablet.er 100 Mg PO Q8H Assessment/Pt Instructions You are being discharged on hospice with [facility]. Please contact them with any questions or concerns after discharge. Discharge Planning: <30 minutes discharge planning Discharge Instructions Discharge Diet: No Restrictions Activity as Tolerated: Yes Discharge Physical Examination Vital Signs Vital Signs Date Time Temp Pulse Resp B/P (MAP) Pulse Ox O2 Delivery O2 Flow Rate FiO2 04/06/21 10:36 92 Nasal Cannula 2.00 04/06/21 08:04 36.2 50 12 104/50 (68) General Appearance: No Apparent Distress, Chronically ill, Cachetic Respiratory: No Respiratory Distress, Decreased Breath Sounds Cardiovascular: Regular Rate, Rhythm, No Murmur Gastrointestinal: Normal Bowel Sounds, Soft Extremity: Normal Inspection, No Pedal Edema Skin: Normal Color, Warm/Dry Neurologic/Psychiatric: Alert, Depressed Affect Allergies: Coded Allergies: Sulfa (Sulfonamide Antibiotics) (Unverified Allergy, Mild, HIVES, SWELLING AND ITCHING, 07/08/19) Copy Copies To 1: SAGE BRISCOE MD Discharge Summary Date of Admission Apr 04, 2021 at 14:45 Date of Discharge Discharge Date: Apr 06, 2021 Discharge Time: 11:12 Admission Diagnosis Intractable pain Comfort Measures/ End of Life Care: Hospice Care (Home) Advance Care discuss with: patient Plan: initiate discussion, clarifying prognosis, identified end-of-life goals, developed treatment plan Time spent on discussion (min): 30 Discharge Diagnosis Pain of metastatic malignancy Metastatic lung cancer to the bone Severe protein calorie malnutrition Cachexia Tobacco abuse Poor prognosis (1) Pain of metastatic malignancy Status: Acute (2) Lung cancer metastatic to bone Status: Acute (3) Cachexia Status: Acute (4) Severe protein-calorie malnutrition Status: Acute (5) Tobacco abuse Status: Chronic (6) Poor prognosis Status: Acute MANNY CANELA MD Apr 06, 2021 11:15
[2021-04-06 11:16] VITALS: BP 98/55
[2021-04-06] MEDS: LORazepam 0.5 MG (ATIVAN) TABLET PO PRN (11:19)
== END 2021-04-06 12:42 | disposition home or self-care (01) ==
LOC: EDUNIT# 11:44 → ER 11:46 → 4TH 14:45
PROVIDERS: ADMIT Internal Medicine; ATTEND Internal Medicine
DX: C34.90 Malignant neoplasm of unspecified part of unspecified bronchus or lung (principal); G89.3 Neoplasm related pain (acute) (chronic); C79.51 Secondary malignant neoplasm of bone; E43 Unspecified severe protein-calorie malnutrition; F17.210 Nicotine dependence, cigarettes, uncomplicated
CPT/HCPCS: 36415; 77336; 77386; 80048; 85007; 85027; 94760; G0378

== ENCOUNTER 2021-04-04 15:56 | Outpatient (RCR) | payer MEDICARE, OTHER ==
[2021-03-01 15:43] LABS: BASOPHILS # (AUTO) 0.1 10^3/uL (0.0-0.1); BASOPHILS % (AUTO) 0 % (0-10); EOSINOPHILS # (AUTO) 1.8 10^3/uL (0.0-0.3); EOSINOPHILS % (AUTO) 8 % (0-10); HEMATOCRIT 36 % (35-52); HEMOGLOBIN 11.5 g/dL (11.5-16.0); LYMPHOCYTES # (AUTO) 2.2 X 10^3 (1.0-4.0); LYMPHOCYTES % (AUTO) 10 % (12-44); MEAN CORPUSCULAR HEMOGLOBIN 31 pg (25-34); MEAN CORPUSCULAR HGB CONC 32 g/dL (32-36); MEAN CORPUSCULAR VOLUME 97 fL (80-99); MEAN PLATELET VOLUME 13.3 fL (9.0-12.2); MONOCYTES # (AUTO) 1.5 X 10^3 (0.0-1.0); MONOCYTES % (AUTO) 6 % (0-12); NEUTROPHILS # (AUTO) 17.8 X 10^3 (1.8-7.8); NEUTROPHILS % (AUTO) 76 % (42-75); PLATELET COUNT 188 10^3/uL (130-400); WHITE BLOOD COUNT 23.5 10^3/uL (4.3-11.0)
[2021-03-01 16:24] LABS: ALBUMIN 3.6 GM/DL (3.2-4.5); BILIRUBIN,TOTAL 0.6 MG/DL (0.1-1.0); CALCIUM 8.5 MG/DL (8.5-10.1); CREATININE SERUM 0.86 MG/DL (0.60-1.30); POTASSIUM 4.1 MMOL/L (3.6-5.0); TOTAL PROTEIN 6.9 GM/DL (6.4-8.2)
[2021-03-24 13:35] LABS: HEMATOCRIT 32 % (35-52); HEMOGLOBIN 10.4 g/dL (11.5-16.0); MEAN CORPUSCULAR HGB CONC 32 g/dL (32-36); MONOCYTES # (AUTO) 1.4 10^3/uL (0.0-1.0); NEUTROPHILS % (AUTO) 84 % (42-75)
[2021-03-24 13:36] LABS: BASOPHILS # (AUTO) 0.1 10^3/uL (0.0-0.1); BASOPHILS % (AUTO) 0 % (0-10); EOSINOPHILS # (AUTO) 1.2 10^3/uL (0.0-0.3); EOSINOPHILS % (AUTO) 6 % (0-10); LYMPHOCYTES # (AUTO) 0.7 10^3/uL (1.0-4.0); LYMPHOCYTES % (AUTO) 3 % (12-44); MEAN CORPUSCULAR HEMOGLOBIN 31 pg (25-34); MEAN CORPUSCULAR VOLUME 97 fL (80-99); MEAN PLATELET VOLUME 13.3 fL (9.0-12.2); MONOCYTES % (AUTO) 6 % (0-12); NEUTROPHILS # (AUTO) 18.4 10^3/uL (1.8-7.8); PLATELET COUNT 165 10^3/uL (130-400); WHITE BLOOD COUNT 21.9 10^3/uL (4.3-11.0)
[2021-03-24 14:15] LABS: ALBUMIN 3.4 GM/DL (3.2-4.5); BILIRUBIN,TOTAL 0.3 MG/DL (0.1-1.0); CALCIUM 8.6 MG/DL (8.5-10.1); CREATININE SERUM 1.2 MG/DL (0.60-1.30); POTASSIUM 4.4 MMOL/L (3.6-5.0); TOTAL PROTEIN 6.6 GM/DL (6.4-8.2)
[~2021-04-04 15:56] MED LIST changes: +NS IV 1000 ML (CANCER CTR) IV SCH; +NS IV SCH; +PEMBROLIZUMAB 200 MG in NS (IVPB) CANCER CENTER 50 ML IV SCH; +ZOLEDRONIC ACID IV SCH; +morphine INJ 10 MG/ML 1ML (CANCER CENTER) IV PRN; +morphine INJ 10 MG/ML 1ML (CANCER CENTER) ONE
[2021-04-05] MEDS ORDERED: DOCU100T2 PO (10:10)
[2021-04-05] MEDS ORDERED: MORP100T47 PO (10:10)
[2021-04-05] MEDS ORDERED: OXYC20TA3 PO (10:10)
[2021-04-05] MEDS ORDERED: ONDA-106 PO (10:10)
[2021-04-05] MEDS ORDERED: DEXA4TAB PO (10:10)
[2021-04-05] MEDS ORDERED: ALPR0.5T7 PO (10:10)
[2021-04-05] MEDS ORDERED: NAPR220C11 PO (10:10)
[2021-04-06] MEDS ORDERED: METH-742 PO (11:10)
== END 2021-04-15 | disposition home or self-care (01) ==
LOC: ONC 15:56
PROVIDERS: ATTEND Internal Medicine Hematology & Oncology
DX: Z51.0 Encounter for antineoplastic radiation therapy (principal); C34.32 Malignant neoplasm of lower lobe, left bronchus or lung; C79.51 Secondary malignant neoplasm of bone; C79.89 Secondary malignant neoplasm of other specified sites; C78.7 Secondary malignant neoplasm of liver and intrahepatic bile duct; D64.1 Secondary sideroblastic anemia due to disease; Z92.21 Personal history of antineoplastic chemotherapy; Z92.3 Personal history of irradiation; Z72.0 Tobacco use; Z45.2 Encounter for adjustment and management of vascular access device
CPT/HCPCS: 36591; 77290; 77300; 77301; 77334; 77336; 77338; 77386; 80053; 84443; 85025; 96374; 99213